=== PATIENT | female | born 1965 | race Caucasian/White ===

== ENCOUNTER 2024-06-24 05:07 | Inpatient (IN) | payer OTHER, SELFPAY ==
[2024-06-24] VITALS (29 sets, daily range): BP systolic 90–161; BP diastolic 52–100; PULSE 107–147; RESP 14–30; TEMP 36.6–37.4; O2SAT 87–100; BMI 31.1
--- NOTE | ~2024-06-24 | XR_ITS ---
Portable chest x-ray Comparison: 06/27/2024 Clinical History: Pneumonia Findings: Lungs are clear, without focal consolidation or pleural effusion. COPD pattern. Cardiomed iastinal silhouette is stable. Bones and soft tissues are unremarkable. Impression: Clear lungs. COPD pattern. Reviewed, dictated and finalized at [facility]. ED PERSON Impression: Clear lungs. COPD pattern.
--- NOTE | ~2024-06-24 | XR_ITS ---
Portable chest x-ray Comparison: 06/24/2024 Clinical History: Pneumonia, COPD Findings: Probable COPD pattern of the lungs. No consolidation or pleural effusion evident. Cardiom ediastinal silhouette is stable. Bones and soft tissues are unremarkable. Impression: COPD. Clear lungs. Reviewed, dictated and finalized at location . FACER Impression: COPD. Clear lungs.
--- NOTE | ~2024-06-24 | CT_ITS ---
EXAMINATION: CT abdomen pelvis wo/w con DATE: 06/28/2024 10:11 INDICATION: Left-sided renal mass TECHNIQUE: Computed tomography (CT) of the abdomen and pelvis was performed with 100 mL Omnipaque-350 intravenous contrast. Automated exposure control and iterative reconstruction technique were employe d. The dose-length product was 1551.08 mGy-cm. COMPARISON: None FINDINGS: Emphysema at the bilateral lung bases. Heart size is normal. No pericardial or pleural effusion. Foca l hepatic steatosis at the ligamentum teres. Scattered small hepatic and splenic calcification consis tent with old granulomatous disease. Gallbladder and pancreas are normal. 1.3 cm nodules in both the left and right adrenal glands. 8 mm low-attenuation cyst at the upper pole the right kidney. 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 6.9 x 6.8 cm heterogeneously e nhancing mass with internal dystrophic calcifications arising from the lower pole of the left kidney consistent with renal cell carcinoma. Bowels including appendix are normal. Arambula catheter within the decompressed bladder. There are couple uterine fibroids the larger measuring 4.4 cm at the right [place] e of the uterine body with a 9 mm pedunculated fibroid arising from the left side of the fundus. Bila teral adnexa are unremarkable. Small amount of likely physiologic free fluid in the pelvis. No pathol ogically enlarged abdominal or pelvic lymphadenopathy. Mild lumbar spondylosis. IMPRESSION: 1. 6.9 cm left renal mass consistent with renal cell carcinoma. 2. A pair of 1.3 cm left and right adrenal nodules which could represent adrenal adenomas or metastat ic disease. Could consider further evaluation with MRI as clinically indicated. 3. Fibroid uterus. Reviewed, dictated and finalized at location A. OND FINISHING SUPERVISOR IMPRESSION: 1. 6.9 cm left renal mass consistent with renal cell carcinoma. 2. A pair of 1.3 cm left and right adrenal nodules which could represent adrena l adenomas or metastatic disease. Could consider further evaluation with MRI as clinically indicated. 3. Fibroid uterus.
--- NOTE | ~2024-06-24 | CT_ITS ---
EXAMINATION: CT brain wo con DATE: 06/24/2024 12:00 INDICATION: Altered mental status. TECHNIQUE: Computed tomography (CT) of the head was performed without intravenous contrast. The mA wa s adjusted according to patient size. Iterative reconstruction technique was employed. The dose-lengt h product was 605.33 mGy-cm. COMPARISON: None FINDINGS: There is no intracranial hemorrhage, acute infarction, or abnormal intracranial mass lesion . The ventricles are normal in size. There is mucosal thickening in the paranasal sinuses. The orbits are normal. The mastoid air cells are normal. IMPRESSION: 1. Normal brain. Reviewed, dictated and finalized at location A. L MARKETER IMPRESSION: 1. Normal brain.
--- NOTE | ~2024-06-24 | CT_ITS ---
EXAMINATION: CTA chest PE protocol DATE: 06/24/2024 07:39 INDICATION: Hypoxia. TECHNIQUE: Computed tomography angiography (CTA) of the chest was performed with 100 mL Omnipaque-350 intravenous contrast timed to evaluate the pulmonary arteries. Coronal maximum intensity projection 3D-reconstructions were created by the technologist. Automated exposure control and iterative reconst ruction technique were employed. The dose-length product was 723.65 mGy-cm. COMPARISON: Chest CT 01/22/17 FINDINGS: There is severe emphysema. There are centrilobular nodules in left lower lobe and right upp er lobe. No pleural effusion. The heart size is normal. No pericardial effusion. There is no pulmonar y embolus. Calcifications in the liver and spleen are consistent with old granulomatous disease. Part ially visualized is a 5.9 cm mass in left kidney. There are masses in the adrenal glands measuring up to 13 mm on the left without change, likely adenomas. There is mild thoracic and lumbar spondylosis. IMPRESSION: 1. 5.9 cm mass in left kidney suspicious for renal cell carcinoma. Abdomen CT without and with contra st is recommended. 2. No pulmonary embolus. Sensitivity is moderately decreased by motion artifact. 3. Mild pneumonia in right upper lobe and left lower lobe. 4. Severe emphysema. Reviewed, dictated and finalized at location A. ST LAW AND POLICY PROFESSOR IMPRESSION: 1. 5.9 cm mass in left kidney suspicious for renal cell carcinoma. Abdomen CT w ithout and with contrast is recommended. 2. No pulmonary embolus. Sensitivity is moderately decreased by motion artifact . 3. Mild pneumonia in right upper lobe and left lower lobe. 4. Severe emphysema.
--- NOTE | ~2024-06-24 | XR_ITS ---
EXAMINATION: XR chest 1V portable DATE: 06/24/2024 06:20 INDICATION: Shortness of breath. TECHNIQUE: A single frontal view of the chest was obtained on 2 radiographs. COMPARISON: Chest single view 01/22/2017, chest CT 01/22/2017 FINDINGS: The lungs are hyperexpanded with lucencies and interstitial opacities, consistent with emph ysema. No pleural effusion or pneumothorax. The heart size is normal. IMPRESSION: 1. Emphysema. Reviewed, dictated and finalized at location A. ND CRUSHER IMPRESSION: 1. Emphysema.
--- NOTE | 2024-06-24 05:14 | ECG_ITS ---
Test Date: 2024-06-24 05:10:47 Measurements Intervals [place] Rate: 142 P: 77 [place]: 139 QRS: 76 QRSD: 95 T: 66 QT: 292 QTc: 449 Interpretive Statements SINUS TACHYCARDIA, POSSIBLE ATRIAL FLUTTER INCOMPLETE RIGHT BUNDLE BRANCH BLOCK [90+ ms QRS DURATION, TERMINAL R IN V1/V2, 40+ ms S IN I/aVL/V4/V5/V6] ABNORMAL RHYTHM ECG No previous ECG available for comparison Electronically Signed On 06-24-2024 14:57:47 FINE HAIRER by Roby Aguilar M.D.
[2024-06-24 05:27] LABS: Hematocrit 40.9 % (37.0-47.0); Hemoglobin 13.3 g/dL (12.0-15.0); Mean Corpuscular HGB Conc 32.5 g/dl (32-36); Mean Corpuscular Hemoglobin 30.3 pg (26-34); Mean Corpuscular Volume 93.2 fl (80-100); Mean Platelet Volume 9.7 fl (7.4-10.4); Platelet Count Result 335 k/mm3 (150-375); Red Blood Count 4.39 M/mm3 (4.2-5.4); Red Cell Distribution Width 12.7 % (11.5-14.5); White Blood Count 11.6 K/mm3 (4.5-10.0)
[2024-06-24 05:38] LABS: Lactic Acid Reflex 1.8 mmol/L (0.7-2.0)
[2024-06-24 05:39] LABS: Alanine Aminotransferase 58 U/L (6-35); Albumin Level 4.5 g/dL (3.5-5.1); Alkaline Phosphatase 136 U/L (38-126); Anion Gap 9 mmol/L (4-12); Aspartate Amino Transferase 50 U/L (14-36); Bilirubin,Total 0.7 mg/dL (0.2-1.3); Blood Urea Nitrogen 18 mg/dL (7-17); Calcium 9.8 mg/dL (8.4-10.2); Carbon Dioxide 33 mmol/L (22-30); Chloride 97 mmol/L (98-107); Estimated CRCL calculation 50 ml/min; Estimated Glomerular Filt Rate 57; Glucose 176 mg/dL (65-110); Potassium 4.5 mmol/L (3.4-5.0); Sodium 139 mmol/L (137-145)
[2024-06-24] MEDS: methylPREDNISolone SOD SUCC 125 MG VIAL IV PUSH (05:47)
[2024-06-24] MEDS: MAGNESIUM SULF 2 GM/WATER 50ML 2 GM/50 ML BAG IVPB (05:47)
[2024-06-24 05:53] LABS: Band Neutrophils Percent 4 % (0-6); Lymphocytes Absolute Manual 0.92 K/mm3 (1.1-4.5); Monocytes Absolute Manual 0.69 K/mm3 (0.1-0.90); Monocytes Percent Manual 6 % (3-9); Neutrophils Absolute Manual 9.97 K/mm3 (1.7-7.2); Neutrophils Percent Manual 82 % (46-73); Total Cells Counted 100
[2024-06-24 05:54] LABS: Anisocytosis 1+; Atypical Lymphocytes Present; Platelet Estimate Increased (Adequate); Schistocytes None Seen
[2024-06-24] MEDS: SODIUM CHLORIDE 0.9% IV 2,500 ML 999 ML IV CONT (05:58)
[2024-06-24 06:09] LABS: Alveolar/Arterial O2 Gradient 33.3 mmHg; Base Excess ABG 1.2 mEq/l (+/-2.0); Fractional Inspired Oxygen 60 %; HCO3 ABG 30.6 mEq/l (22.0-26.0); Oxygen Content ABG 19.8 %vol (16.0-22.0); Oxygen Saturation ABG 99.6 % (95.0-100.0); Oxyhemoglobin 98.7 % THb (90.0-100.0); PO2 ABG 314.8 mmHg (80.0-100.0); PO2 FiO2 Ratio Arterial Blood 5.25 %; Total Hemoglobin 13.7 g/dL (12.0-18.0)
[2024-06-24 06:10] LABS: Device BIPAP; Expiratory Pressure 5 cmH2O; Inspiratory Pressure 15 cmH2O; Modified Allen's Test Pass; PCO2 ABG 72.5 mmHg (35.0-45.0); Site Drawn RIGHT RADIAL; pH ABG 7.243 (7.350-7.450)
--- NOTE | 2024-06-24 06:31 | ED.GENADULT ---
HPI - General Adult General Chief complaint: Shortness of Breath/Dyspnea Stated complaint: SOB Time Seen by Provider: 06/24/24 05:26 History of Present Illness HPI narrative: This is a 58-year-old female with a history of COPD presenting ED with chief complaint of shortness of breath. Patient says her breathing has been getting steadily worse for the last 2 weeks. She has been having fevers productive cough with foul-smelling sputum, increasing shortness of breath and chest pain. She denies nausea vomiting or diarrhea. She saw her primary care physician about 1 week ago who actually recommended admission although she did not want to be admitted. Patient called EMS today when her breathing got acutely worse. She was found to be 61% on room air. She was placed on CPAP and brought to the hospital for further management. Related Data Allergies Allergy/AdvReac Type Severity Reaction Status Date / Time NKDA Allergy Mild Uncoded 05/05/09 11:30 Exam Narrative: APPEARANCE: Acute respiratory distress Head: atraumatic. EYES: EOMI, NOSE: Atraumatic NECK: Trachea midline RESPIRATORY: tachypneic, wheezing in all gavin, decreased air entry CARDIOVASCULAR: tachycardic, no peripheral edema ABDOMINAL: soft nontender MUSCULOSKELETAl: No obvious deformities NEURO: Alert. Moving 4/4 extremities SKIN:: Warm, dry. Normal color PSYCHIATRIC: Normal affect Course Vital Signs Vital signs: Vital Signs Temperature 36.6 C 06/24/24 05:05 Pulse Rate 145 H 06/24/24 05:05 Respiratory Rate 24 H 06/24/24 05:05 Blood Pressure 109/86 06/24/24 05:05 Pulse Oximetry 100 06/24/24 05:05 Oxygen Delivery CPAP 06/24/24 05:05 Temperature 37.2 C 06/24/24 06:54 Pulse Rate 141 H 06/24/24 09:28 Respiratory Rate 23 H 06/24/24 09:28 Blood Pressure 147/100 H 06/24/24 09:28 Pulse Oximetry 99 06/24/24 09:28 Oxygen Delivery BiPAP 06/24/24 09:15 Medical Decision Making MDM Narrative Medical decision making narrative: -Course: 58-year-old female with COPD presenting with acute respiratory distress. Patient arrived on CPAP and was switched to BiPAP at 15 in 5. ABG showed acute hypercarbic respiratory failure. Patient placed on continued continuous DuoNebs. Started on antibiotics for increased sputum w/ purulence. patient given fluid bolus. Patient signed out to the oncoming physician pending CT PE and re-evaluation. -DDX includes but is not limited to:COPD , pneumonia, viral syndrome Independent EKG interpretation: Rhythm [sinus], Rate [142], [place] -[normal], [place] -[normal], QRS [narrow], QTC [normal], T waves -[negative for concerning inversions], ST Segments - [Negative for concerning elevations] Final interpretations: sinus tachycardia Vital Signs Vital Signs: Vital Signs Temperature 36.6 C 06/24/24 05:05 Pulse Rate 145 H 06/24/24 05:05 Respiratory Rate 24 H 06/24/24 05:05 Blood Pressure 109/86 06/24/24 05:05 Pulse Oximetry 100 06/24/24 05:05 Oxygen Delivery CPAP 06/24/24 05:05 Temperature 37.2 C 06/24/24 06:54 Pulse Rate 141 H 06/24/24 09:28 Respiratory Rate 23 H 06/24/24 09:28 Blood Pressure 147/100 H 06/24/24 09:28 Pulse Oximetry 99 06/24/24 09:28 Oxygen Delivery BiPAP 06/24/24 09:15 Lab Data 06/24/24 05:20 06/24/24 05:20 Labs: Lab Results 06/24/24 06/24/24 06/24/24 Range/Units 05:20 05:51 06:05 WBC 11.6 H (4.5-10.0) K/mm3 RBC 4.39 (4.2-5.4) M/mm3 Hgb 13.3 (12.0-15.0) g/dL Hct 40.9 (37.0-47.0) % MCV 93.2 (80-100) fl MCH 30.3 (26-34) pg MCHC 32.5 (32-36) g/dl RDW 12.7 (11.5-14.5) % Plt Count 335 (150-375) k/mm3 MPV 9.7 (7.4-10.4) fl Immature Gran % (Auto) Not Reportable Neut % (Auto) Not Reportable Lymph % (Auto) Not Reportable [place] % (Auto) Not Reportable Eos % (Auto) Not Reportable Baso % (Auto) Not Reportable Lymph # (Auto) Not Reportable [place] # (Auto) Not Reportable Eos # (Auto) Not Reportable Baso # (Auto) Not Reportable Abs Immat Gran (auto) Not Reportable Absolute Neuts (auto) Not Reportable Absolute Nucleated RBC Not Reportable Total Counted 100 Neutrophils % (Manual) 82 H (46-73) % Band Neutrophils % 4 (0-6) % Lymphocytes % (Manual) 8.0 L (18-44) % Monocytes % (Manual) 6 (3-9) % Nucleated RBC % Not Reportable Abs Neuts (Manual) 9.97 H (1.7-7.2) K/mm3 Abs Lymphs (Manual) 0.92 L (1.1-4.5) K/mm3 Abs Monocytes (Manual) 0.69 (0.1-0.90) K/mm3 Atypical Lymphocytes Present Platelet Estimate Increased (Adequate) Anisocytosis 1+ Schistocytes None seen Expiratory Pressure 5 cmH2O Inspiratory Pressure 15 cmH2O Sodium 139 (137-145) mmol/L Potassium 4.5 (3.4-5.0) mmol/L Chloride 97 L (98-107) mmol/L Carbon Dioxide 33 H (22-30) mmol/L Anion Gap 9 (4-12) mmol/L BUN 18 H (7-17) mg/dL Creatinine 1.00 (0.7-1.0) mg/dL Estim Creat Clear Calc 50 ml/min Estimated GFR 57 L (59 - ) Glucose 176 H (65-110) mg/dL Lactic Acid 1.8 (0.7-2.0) mmol/L Calcium 9.8 (8.4-10.2) mg/dL Total Bilirubin 0.7 (0.2-1.3) mg/dL AST 50 H (14-36) U/L ALT 58 H (6-35) U/L Alkaline Phosphatase 136 H (38-126) U/L Troponin I 0.035 H* (0.000-0.034) ng/mL Total Protein 8.0 (6.3-8.2) g/dL Albumin 4.5 (3.5-5.1) g/dL Influenza A (RT-PCR) Negative (Negative) Influenza B (RT-PCR) Negative (Negative) RSV (RT-PCR) Negative (Negative) SARS-CoV-2 RNA (RT-PCR) Negative (Negative) 06/24/24 Range/Units 09:19 WBC (4.5-10.0) K/mm3 RBC (4.2-5.4) M/mm3 Hgb (12.0-15.0) g/dL Hct (37.0-47.0) % MCV (80-100) fl MCH (26-34) pg MCHC (32-36) g/dl RDW (11.5-14.5) % Plt Count (150-375) k/mm3 MPV (7.4-10.4) fl Immature Gran % (Auto) Neut % (Auto) Lymph % (Auto) [place] % (Auto) Eos % (Auto) Baso % (Auto) Lymph # (Auto) [place] # (Auto) Eos # (Auto) Baso # (Auto) Abs Immat Gran (auto) Absolute Neuts (auto) Absolute Nucleated RBC Total Counted Neutrophils % (Manual) (46-73) % Band Neutrophils % (0-6) % Lymphocytes % (Manual) (18-44) % Monocytes % (Manual) (3-9) % Nucleated RBC % Abs Neuts (Manual) (1.7-7.2) K/mm3 Abs Lymphs (Manual) (1.1-4.5) K/mm3 Abs Monocytes (Manual) (0.1-0.90) K/mm3 Atypical Lymphocytes Platelet Estimate (Adequate) Anisocytosis Schistocytes Expiratory Pressure cmH2O Inspiratory Pressure cmH2O Sodium (137-145) mmol/L Potassium (3.4-5.0) mmol/L Chloride (98-107) mmol/L Carbon Dioxide (22-30) mmol/L Anion Gap (4-12) mmol/L BUN (7-17) mg/dL Creatinine (0.7-1.0) mg/dL Estim Creat Clear Calc ml/min Estimated GFR (59 - ) Glucose (65-110) mg/dL Lactic Acid (0.7-2.0) mmol/L Calcium (8.4-10.2) mg/dL Total Bilirubin (0.2-1.3) mg/dL AST (14-36) U/L ALT (6-35) U/L Alkaline Phosphatase (38-126) U/L Troponin I Pending (0.000-0.034) ng/mL Total Protein (6.3-8.2) g/dL Albumin (3.5-5.1) g/dL Influenza A (RT-PCR) (Negative) Influenza B (RT-PCR) (Negative) RSV (RT-PCR) (Negative) SARS-CoV-2 RNA (RT-PCR) (Negative) ABG Data ABG results: 06/24/24 06:05 Puncture Site Right radial ABG pH 7.243 L* ABG pCO2 72.5 H* ABG pO2 314.8 H ABG PO2/FiO2 Ratio 5.25 ABG HCO3 30.6 H ABG O2 Saturation 99.6 ABG O2 Content 19.8 ABG Base Excess 1.2 A-a Gradient 33.3 Oxyhemoglobin 98.7 Total Hemoglobin 13.7 O2 Delivery Device Bipap O2 Liters/Min Not Reportable FiO2 60 Discharge Plan Discharge Clinical Impression: Respiratory failure with hypoxia and hypercapnia, PNA (pneumonia), Left kidney mass, COPD (chronic obstructive pulmonary disease) Patient Disposition: Still a Patient Condition: Stable Follow-up/Referrals: [place], [Primary Care Provider] -
[2024-06-24 06:44] LABS: Influenza A QL RT-PCR Negative (Negative); Influenza B QL RT-PCR Negative (Negative); RSV RNA, RT-PCR Negative (Negative); SARS-CoV-2 RNA PCR Negative (Negative)
[2024-06-24] MEDS: DOXYCYCLINE 100 MG/NS 100 ML 100 MG/100 ML BAG IVPB ×2 (06:47→19:43)
--- NOTE | 2024-06-24 07:30 | PC.NURSE ---
Pt. taken to CT on a monitor by this RN and RT at bedside. Pt remains on BiPAP during scan.
--- NOTE | 2024-06-24 07:56 | PC.NURSE ---
02 consistently 87% with good pleth on BiPAP at 30% Fi02. RT called to bedside.
--- NOTE | 2024-06-24 08:04 | PC.NURSE ---
Per RT, Fi02 titrated up to 50%. Oxygen saturation now 96% with good pleth.
[2024-06-24] MEDS: LEVALBUTEROL NEB 1.25 MG/3 ML 6 MG INHALATION ×2 (09:08→10:36)
[2024-06-24] MEDS: IPRATROPIUM BR 0.02% INH SOLN 0.5 MG/2.5 ML VIAL 1 MG INHALATION (09:09)
--- NOTE | 2024-06-24 09:23 | ECG_ITS ---
Test Date: 2024-06-24 09:27:48 Measurements Intervals [place] Rate: 141 P: 83 [place]: 116 QRS: 69 QRSD: 93 T: 64 QT: 291 QTc: 446 Interpretive Statements SINUS TACHYCARDIA WITH SHORT [place] INTERVAL, POSSIBLE ATRIAL FLUTTER ABNORMAL RHYTHM ECG Compared to ECG 06/24/2024 05:10:47 no change compared to prior EKG Electronically Signed On 06-24-2024 15:01:15 PYTHON CONSULTANT by Roby Aguilar M.D.
[2024-06-24 09:34] LABS: Troponin I 0.035 ng/mL (0.000-0.034)
[2024-06-24 10:12] LABS: Troponin I 0.033 ng/mL (0.000-0.034)
[2024-06-24 10:24] LABS: Alveolar/Arterial O2 Gradient 148.3 mmHg; Base Excess ABG -6.4 mEq/l (+/-2.0); Fractional Inspired Oxygen 50 %; HCO3 ABG 26.9 mEq/l (22.0-26.0); Oxygen Content ABG 18.3 %vol (16.0-22.0); PO2 FiO2 Ratio Arterial Blood 1.84 %; Total Hemoglobin 13.8 g/dL (12.0-18.0)
--- NOTE | 2024-06-24 10:30 | PC.NURSE ---
Pt continues to be diaphoretic, SOB and tachycardic. BiPAP in place. LEONARD Recinos and MD Arias notified. MD Arias at bedside assessing pt. Additional continuous breathing treatment ordered. RT at bedside.
[2024-06-24 10:32] LABS: Device BIPAP; PCO2 ABG 103.3 mmHg (35.0-45.0); Site Drawn RIGHT RADIAL; pH ABG 7.034 (7.350-7.450)
[2024-06-24 10:33] LABS: Expiratory Pressure 5 cmH2O; Inspiratory Pressure 15 cmH2O
--- NOTE | 2024-06-24 11:06 | PC.NURSE ---
Machine Assistant at bedside speaking with family and assessing pt.
--- NOTE | 2024-06-24 11:20 | PC.NURSE ---
This RN and Heavenly RN attempted temp sensing osman, whih is a 16 [place]. Unable to penetrate urinary meatus. 16 [place] osman swapped out with 14 [place]. 14 [place] osman insertion successful.
--- NOTE | 2024-06-24 11:40 | P.CONIN_ITS ---
Assessment and Plan Assessment and plan (1) Respiratory failure with hypoxia and hypercapnia: Code(s): J96.91 - Respiratory failure, unspecified with hypoxia; J96.92 - Respiratory failure, unspecified with hypercapnia Status: Acute Assessment and Plan: Acute respiratory failure secondary to pneumonia with underlying COPD. CTA negative for PE On arrival patient was placed on BiPAP but repeat ABG was worse likely secondary to low tidal volumes and high FiO2 I have adjusted the BiPAP and increase the IPAP and decrease FiO2 to 21% I will order repeat ABG Patient may need intubation if ABG does not show signs of improvement or respiratory status does not improve Steroids, bronchodilators Treatment of pneumonia as below (2) Sepsis: Code(s): A41.9 - Sepsis, unspecified organism Status: Acute Assessment and Plan: Sepsis secondary to community-acquired pneumonia Management of respiratory failure as above Blood cultures, urine Legionella, urine pneumococcal, mycoplasma IgM Empiric vancomycin Rocephin and doxycycline IV fluid bolus followed by IV fluids Check lactic acid level Blood pressure adequate at this time (3) COPD exacerbation: Code(s): J44.1 - Chronic obstructive pulmonary disease with (acute) exacerbation Status: Acute Assessment and Plan: See above (4) PNA (pneumonia): Code(s): J18.9 - Pneumonia, unspecified organism Status: Acute Assessment and Plan: See above (5) Left kidney mass: Code(s): N28.89 - Other specified disorders of kidney and ureter Status: Acute Assessment and Plan: CT scan shows incidental 6 cm left kidney mass suspicious for renal cell carcinoma. Will order additional workup once patient is stabilized from respiratory standpoint (6) Encephalopathy: Code(s): G93.40 - Encephalopathy, unspecified Status: Acute Assessment and Plan: Likely secondary to CO2 narcosis Management of respiratory failure as above Check head CT, ammonia, TSH Avoid sedative (7) Elevated troponin: Code(s): R79.89 - Other specified abnormal findings of blood chemistry Status: Acute Assessment and Plan: No documented history of coronary disease. Patient had 1st troponin check which was mildly abnormal and repeat troponin was in normal range. Likely elevation secondary to respiratory failure and tachycardia EKG reviewed. Serial troponins ordered Monitor Plan DVT prophylaxis -Lovenox Stress ulcer prophylaxis -PPI Nutrition - npo Code Status - Full Code I spoke to patient's and updated him with patient's current status including respiratory failure, COPD, pneumonia, sepsis I also discussed with him management plan including BiPAP and possibility of her requiring intubation and invasive mechanical ventilation. I answered all his questions were Total Critical Care Time - 45 minutes Due to a high probability of clinically significant, life threatening deterioration, the patient required my highest level of preparedness to intervene emergently and I personally spent this critical care time directly and personally managing the patient. This critical care time included obtaining a history; examining the patient; pulse oximetry; ordering and review of studies; arranging urgent treatment with development of a management plan; evaluation of patient's response to treatment; frequent reassessment; and discussions with other providers. It was exclusive of separately billable procedures and treating other patients and teaching time. Please see Assessment and Plan section and the rest of the note for further information on patient assessment and treatment Boiler/Chiller Operator Consult Note Consult date: 06/24/24 Reason for consult: Acute respiratory failure, sepsis, pneumonia HPI: Terri Villafuerte is a 58 year old female with past medical history of COPD and smoking. Started feeling sick last week with flu-like symptoms. History was provided by patient's at bedside as the patient was unable to provide history due to drowsiness. He states the patient started having cough fever. Cough was productive. She had some difficulty breathing. She went and saw primary care physician who prescribed steroids and antibiotics. Patient was unable to get her prescription filled and was not taking any medication. Her symptoms continued to get worse with worsening of shortness of breath. He states the patient also had some pain with coughing and deep breathing. Hence they decided to come to the ER today. Review of system was not obtainable. On arrival to ER patient had slightly elevated WBC, and was in respiratory distress. She was placed on BiPAP. As she was hypoxic. ABG showed hypercarbia. Patient was given IV fluids later repeat ABG showed worsening respiratory acidosis and hypercarbia. I was asked to evaluate patient for admission to ICU. On my arrival patient was on BiPAP with low tidal volumes. She was still getting IV fluid bolus that was ordered in the morning. She had received antibiotics. CTA had been done which was negative for PE but showed pneumonia and emphysema.. I obtained history from patient's examined the patient and adjusted BiPAP and spoke to the nursing staff. Review of Systems Review of Systems: ROS unobtainable: Yes unobtainable due to medical condition and unobtainable due to mental status [facility] Past Medical History Medical History (Updated 06/24/24 @ 12:00 by Giancarlo Gutierrez MD) COPD (chronic obstructive pulmonary disease) Social History Social History (Updated 06/24/24 @ 11:40 by Giancarlo Gutierrez MD) Social History: Smoker in the past. Quit smoking 7 years ago. Meds Home Medications and Allergies Allergies Allergy/AdvReac Type Severity Reaction Status Date / Time NKDA Allergy Mild Uncoded 05/05/09 11:30 Vital Signs Vital Signs - 24 hr 06/24/24 05:05 06/24/24 05:15 06/24/24 05:17 Temperature 36.6 C Pulse Rate 145 H 147 H Respiratory Rate 24 H 14 Blood Pressure 109/86 116/94 H Pulse Oximetry 100 100 100 Oxygen Delivery CPAP CPAP 06/24/24 05:30 06/24/24 06:54 06/24/24 06:55 Temperature 37.2 C Pulse Rate 136 H 139 H 138 H Respiratory Rate 30 H 22 H Blood Pressure 149/85 H Pulse Oximetry 99 99 Oxygen Delivery BiPAP 06/24/24 07:57 06/24/24 08:04 06/24/24 09:09 Temperature Pulse Rate 144 H 142 H 136 H Respiratory Rate 28 H 28 H 27 H Blood Pressure 161/84 H Pulse Oximetry 87 L 96 Oxygen Delivery 06/24/24 09:15 06/24/24 09:28 06/24/24 10:36 Temperature Pulse Rate 136 H 141 H 137 H Respiratory Rate 28 H 23 H 26 H Blood Pressure 147/100 H Pulse Oximetry 97 99 Oxygen Delivery BiPAP 06/24/24 10:43 06/24/24 11:07 06/24/24 11:00 Temperature Pulse Rate 137 H 131 H 130 H Respiratory Rate 30 H 28 H 26 H Blood Pressure 150/94 H Pulse Oximetry 95 94 95 Oxygen Delivery BiPAP BiPAP Exam Narrative: General: Pt is drowsy but arousable on BiPAP Lungs/Chest: Trachea central Clear BS B/L, decreased air movement throughout lungs bilaterally Cardiac: Tachycardic. Normal S1 S2. No murmurs Circulation: Pedal pulses are intact and symmetrical. Abdomen: Normal bowel sounds. Obese. Soft. NT. ND. Extremities: No clubbing, cyanosis or edema. Warm : Arambula in place Neurologic: On stimulation she opens her eyes and nodes are head, she moves all 4 extremity but did not follow commands for me, she answered couple of questions by yes and no, PERRL Skin: No Rash Results Labs 06/24/24 05:20 06/24/24 05:20 Labs: Impressions Chest X-Ray 06/24/24 06:21 IMPRESSION: 1. Emphysema. Chest CTA 06/24/24 07:46 IMPRESSION: 1. 5.9 cm mass in left kidney suspicious for renal cell carcinoma. Abdomen CT without and with contrast is recommended. 2. No pulmonary embolus. Sensitivity is moderately decreased by motion artifact. 3. Mild pneumonia in right upper lobe and left lower lobe. 4. Severe emphysema. Short CBC 06/24/24 Range/Units 05:20 WBC 11.6 H (4.5-10.0) K/mm3 Hgb 13.3 (12.0-15.0) g/dL Hct 40.9 (37.0-47.0) % Plt Count 335 (150-375) k/mm3 BMP 06/24/24 05:20 Sodium 139 Potassium 4.5 Chloride 97 L Carbon Dioxide 33 H BUN 18 H Creatinine 1.00 Glucose 176 H Calcium 9.8 Cardiac Enzymes 06/24/24 06/24/24 Range/Units 05:20 09:19 Troponin I 0.035 H* 0.033 (0.000-0.034) ng/mL Liver Function 06/24/24 Range/Units 05:20 Total Bilirubin 0.7 (0.2-1.3) mg/dL AST 50 H (14-36) U/L ALT 58 H (6-35) U/L Alkaline Phosphatase 136 H (38-126) U/L Albumin 4.5 (3.5-5.1) g/dL ECG Interpretation: Sinus tachycardia
--- NOTE | 2024-06-24 11:45 | PC.NURSE ---
Pt. taken up to ICU on a monitor, BiPAP, RT and this RN at bedside. Head CT ordered. Pt brought to CT for scan on way up to ICU.
--- NOTE | 2024-06-24 12:00 | PC.NURSE ---
Pt. brought to ICU WR by biofuels production technician since pt. is going to CT en route to ICU. After this RN brought pt. to ICU., updated that pt. was getting settling by ICU staff and then they would come out to get him. verbalized appreciation for update.
--- NOTE | 2024-06-24 12:17 | ADMGEN ---
This patient, Terri Villafuerte, was admitted to Intensive Care Unit-7 at 1157. Patient/family oriented to hospital policies and general routines including ID bracelet, bed and alarms, visiting hours, pain management, procedures, bathroom and other care routines, personal items, smoking policy, room service/diet, and visiting hours. Information on how to activate the Rapid Response Team has been discussed. Patient/Family are encouraged to report perceived risks to care and to ask questions if they do not understand what they are told or what they should do.
[2024-06-24] MEDS: LACTATED RINGERS 1,000 ML 100 ML IV CONT ×2 (12:23→23:46)
[2024-06-24] MEDS: methylPREDNISolone SOD SUCC 125 MG VIAL 60 MG IV PUSH ×3 (12:23→23:45)
[2024-06-24 12:33] LABS: Ammonia 17 umol/L (9-30); Lactic Acid Reflex 1.6 mmol/L (0.7-2.0)
[2024-06-24 12:34] LABS: Alveolar/Arterial O2 Gradient 14.2 mmHg; Base Excess ABG -3.9 mEq/l (+/-2.0); Fractional Inspired Oxygen 21 %; HCO3 ABG 25.3 mEq/l (22.0-26.0); Oxygen Content ABG 15.9 %vol (16.0-22.0); Oxyhemoglobin 88.6 % THb (90.0-100.0); PCO2 ABG 66.4 mmHg (35.0-45.0); PO2 FiO2 Ratio Arterial Blood 2.67 %; Total Hemoglobin 12.8 g/dL (12.0-18.0); pH ABG 7.198 (7.350-7.450)
[2024-06-24 12:35] LABS: Device BIPAP; Expiratory Pressure 8 cmH2O; Inspiratory Pressure 20 cmH2O; Modified Allen's Test Pass; Oxygen Saturation ABG 81.4 % (95.0-100.0); Site Drawn RIGHT RADIAL
[2024-06-24 12:45] LABS: Troponin I 0.027 ng/mL (0.000-0.034)
[2024-06-24 12:47] LABS: Glucose Point of Care 154 mg/dl (65-105)
[2024-06-24] MEDS: VANCOMYCIN 2,000 MG/NS 500 ML 2,000 MG/500 ML BAG 250 MG IVPB (12:51)
[2024-06-24 13:04] LABS: Thyroid Stimulating Hormone Reflex 0.017 uIU/mL (0.465-4.68)
[2024-06-24 13:35] LABS: Free T4 Free Thyroxine Reflex 1.69 ng/dL (0.78-2.19)
--- NOTE | 2024-06-24 13:44 | P.HP_ITS ---
H&P: HPI History of Present Illness Date/Time: 06/24/24 13:44 Chief Complaint: Shortness of breath Narrative: 58yo female with COPD, asthma and HTN here for shortness of breath. Patient is on BiPAP and poorly responsive so thus unable to provide history. Majority of the history obtained from . She has a 25 pack-year smoking hx and quit 7 years ago. Since that time, she has been vaping nicotine daily ('all day long' per family). She has COPD, astham but not SHARDA. She does not wear O2 or NIV at home. She uses Albuterol neb 1x/week on average but uses the albuterol inhaler at least 3x/day. She also has Breztri listed. She has never been intubated for her COPD and her last hospitalization for COPD was in 2017. Patient has been having 'flu-like' symptoms for the past 1-2 weeks. She has a cough productive of green sputum. No hemoptysis. Also with myalgia and fatigue with cold sweats. No fever, chills, CP, palpitations, nausea, vomiting, diarrhea, dysuria or hematuria that she has told her . She saw her doctor on 06/22 and he wanted to admit her to the hospital at that time but she refused. No CXR but she was sent home with an abx for possible PNA (never filled since the Rx did not reach the pharmacy). Her condition worsened and she contacted EMS. By report, EMS found her hypoxic with SpO2 at 61% on room air. She was placed on CPAP and brought to the ED for evaluation. In the ED, whe was on CPAP at 100%, tachypneic with RR 24 and tachycardic with HR 145. WBC 11.6K with minor left shift otherwise CBC normal. GLucose 176, serum bicarb 33, AST 50 and ALT 58. Troponin 0.035 but repeat values normal. TSH low at 0.02 but normal FT4. Influenza, RSV and COVID PCR negative. CXR showing emphysema. CTA chest showing 5.9cm left renal mass, no PE, mild PNA RUL and LLL and severe emphysema. CT brain was normal. EKG showing sinus tachycardia ind incomplete Rt BBB. ABG 7.24/73/315 on BiPAP. She was treated with Solu-Medrol, Rocephin, Doxycycline, Mag, morphine and bronchodilators. Repeat ABG worsened but then improved on 3rd value after bipap adjustments. She was admitted to the ICU for further care. Review of Systems Review of Systems: ROS unobtainable: Yes unobtainable due to medical condition PMF Past Medical History Medical History (Updated 06/24/24 @ 15:35 by Matt Mcdaniels MD) Asthma Breast cancer COPD (chronic obstructive pulmonary disease) Surgical History Surgical History (Updated 06/24/24 @ 15:35 by Matt Mcdaniels MD) H/O: hysterectomy History of lumpectomy Family History Family History (Updated 06/24/24 @ 15:35 by Matt Mcdaniels MD) Father Hypertension Mother Hypertension Social History Social History (Updated 06/24/24 @ 15:37 by Matt Mcdaniels MD) Social History: 25 pack year smoking hx. Quit smoking 7 years ago. No alcohol use. No drug use. Code status - full Surrogate decision maker - Smoking packs per day: 1 Smoking cigarettes per day: 20.0 Years smoked: 25 Smoking pack-years: 25.00 Smoking status: Former smoker Tobacco type: cigarettes and e-cigarettes/vaping Second hand tobacco smoke exposure: Yes Additional smoking assessment comments: still uses vape/e-cigarette Meds Home Medications and Allergies Home Medications Medication Instructions Recorded Confirmed Type albuterol sulfate 90 mcg/actuation 1 inh inhalation Q4-6H PRN 06/24/24 06/24/24 History aerosol inhaler Shortness Of Breath Or Wheezing atorvastatin 20 mg tablet 20 mg PO DAILY 06/24/24 06/24/24 History budesonide 160 mcg-glycopyr 9 2 inh inhalation BID 06/24/24 06/24/24 History mcg-formot 4.8 mcg/actuation HFA inhaler (Breztri Aerosphere) cetirizine 10 mg tablet 10 mg PO DAILY 06/24/24 06/24/24 History lisinopril 20 mg tablet 20 mg PO DAILY 06/24/24 06/24/24 History Allergies Allergy/AdvReac Type Severity Reaction Status Date / Time NKDA Allergy Mild Uncoded 05/05/09 11:30 Vital Signs Vital Signs - 24 hr 06/24/24 05:05 06/24/24 05:15 06/24/24 05:17 Temperature 98 F Pulse Rate 145 H 147 H Respiratory Rate 24 H 14 Blood Pressure 109/86 116/94 H Pulse Oximetry 100 100 100 Oxygen Delivery CPAP CPAP 06/24/24 05:30 06/24/24 06:54 06/24/24 06:55 Temperature 99 F Pulse Rate 136 H 139 H 138 H Respiratory Rate 30 H 22 H Blood Pressure 149/85 H Pulse Oximetry 99 99 Oxygen Delivery BiPAP 06/24/24 07:57 06/24/24 08:04 06/24/24 09:09 Temperature Pulse Rate 144 H 142 H 136 H Respiratory Rate 28 H 28 H 27 H Blood Pressure 161/84 H Pulse Oximetry 87 L 96 Oxygen Delivery 06/24/24 09:15 06/24/24 09:28 06/24/24 10:36 Temperature Pulse Rate 136 H 141 H 137 H Respiratory Rate 28 H 23 H 26 H Blood Pressure 147/100 H Pulse Oximetry 97 99 Oxygen Delivery BiPAP 06/24/24 10:43 06/24/24 11:07 06/24/24 11:00 Temperature Pulse Rate 137 H 131 H 130 H Respiratory Rate 30 H 28 H 26 H Blood Pressure 150/94 H Pulse Oximetry 95 94 95 Oxygen Delivery BiPAP BiPAP 06/24/24 12:00 Temperature Pulse Rate 128 H Respiratory Rate 26 H Blood Pressure Pulse Oximetry 100 Oxygen Delivery BiPAP Exam Narrative: AF 99.0 150/94 128 26 100% bipap Gen - well appearing female in moderate acute respiratory distress with bipap in place and tachypnea. HEENT - normocephalic. Atraumatic. Pupils equal round and reactive. BiPAP secured Neck - neck was supple. No dominant adenopathy or masses. Chest - distant BS diffusely. Breast exam was deferred. CV - tachycardic, regular. S1-S2. No obvious murmurs Abd - abdomen was soft. possible tenderness in the upper abdomen but not reproducible. +BS - Arambula secured drain clear yellow urine Ext - no clubbing, cyanosis or edema. 2+ DP pulses bilaterally. Neuro - patient is somnolent but arouses easily. She does not regard examiner or . Does not follow commands. Psych - unable to assess Skin - cool and dry. H&P: Results Labs Labs: Short CBC 06/24/24 Range/Units 05:20 WBC 11.6 H (4.5-10.0) K/mm3 Hgb 13.3 (12.0-15.0) g/dL Hct 40.9 (37.0-47.0) % Plt Count 335 (150-375) k/mm3 BMP 06/24/24 05:20 Sodium 139 Potassium 4.5 Chloride 97 L Carbon Dioxide 33 H BUN 18 H Creatinine 1.00 Glucose 176 H Calcium 9.8 Cardiac Enzymes 06/24/24 06/24/24 06/24/24 Range/Units 05:20 09:19 12:11 Troponin I 0.035 H* 0.033 0.027 (0.000-0.034) ng/mL Liver Function 06/24/24 Range/Units 05:20 Total Bilirubin 0.7 (0.2-1.3) mg/dL AST 50 H (14-36) U/L ALT 58 H (6-35) U/L Alkaline Phosphatase 136 H (38-126) U/L Albumin 4.5 (3.5-5.1) g/dL Assessment and Plan Assessment and plan (1) Respiratory failure with hypoxia and hypercapnia: Code(s): J96.91 - Respiratory failure, unspecified with hypoxia; J96.92 - Respiratory failure, unspecified with hypercapnia Status: Acute Assessment and Plan: Patient with worsening respiratory symptoms over the past week prompting EMS call angelito found her hypoxic in the field. She presents with acute respiratory failure secondary to pneumonia and COPD exacerbation. CTA chest showing RUL and LLL airspace disease consistent with PNA but negative for PE. COVID, RSV and influenza PCR negative. ABG 7.24/73/315 on bipap -> 7.034/103/92 on bipap felt related to low tidal volumes and high FiO2. ABG better after bipap adjustments. Patient started on Vanco, Doxycycline and Rocephin after BCx collected. Continue Solu-Medrol and bronchodilators. Patient may need intubation if her condition does not improve (discussed with night team) Wean off bipap as toelrated. Discussed with at bedside. (2) Sepsis: Code(s): A41.9 - Sepsis, unspecified organism Status: Acute Assessment and Plan: Severe sepsis on admissi on with tachycardia, respiratory failure and mild leukocytosis due CAP. She received 30ml/kg LR and continued on IV fluids. Lactic normal BCx collected. MRSA nasal swab ordered. Urine Legionella, urine pneumococcal, mycoplasma IgM ordered Empiric abx started. Follow up on culture results. Check sputum. (3) COPD exacerbation: Code(s): J44.1 - Chronic obstructive pulmonary disease with (acute) exacerbation Status: Acute Assessment and Plan: Patient with COPD exacerbation with poor air exchange. Continue steroids and bronchodilators. Hold Breztri (4) PNA (pneumonia): Code(s): J18.9 - Pneumonia, unspecified organism Status: Acute Assessment and Plan: CTA showing mild RUL and LLL airspace disease concerning for PNA. Images reviewed and do not appear to be a significant infitrative process. Consider atelectasis or viral. Unlikely to be mets Treatment as above (5) Encephalopathy: Code(s): G93.40 - Encephalopathy, unspecified Status: Acute Assessment and Plan: Patient arouses easily but still obtunded. CT brain normal. Ammonia level 17. TSH low but normal FT4. Likely secondary to CO2 narcosis Avoid sedative Follow for now (6) Elevated troponin: Code(s): R79.89 - Other specified abnormal findings of blood chemistry Status: Acute Assessment and Plan: Troponin 0.035 on admission with subsequent values normal. No hx of CAD EKG showing sinus tachycardia and incomplete Rt BBB. Doubt AFlutter [place] related to above. Not clinically significant. (7) Left kidney mass: Code(s): N28.89 - Other specified disorders of kidney and ureter Status: Acute Assessment and Plan: CTA chest also saw a 5.9cm left renal mass suspicious for RCC. Images just caught the top of the mass. Will check UA and urine cytology given the size. She has a hx of smoking. Further workup when she is better. Plan DVT prophylaxis -Lovenox Code Status - Full Code Hospitalist [facility] Advance Care Plan I have confirmed that the patient's Advanced Care Plan is present, code status is documented, or surrogate decision maker is listed in patient medical record.: Yes Medication Reconciliation I have utilized all available resources to obtain, update and review the patients current medications (includes all prescriptions, OTC, herbals, cannabis, and nutritional supplements).: Yes
[2024-06-24 14:18] LABS: Total Triiodothyronine (T3) 0.98 NG/ML (0.97-1.69)
[2024-06-24] MEDS: IPRATROPIUM 0.5 MG/ALBUTEROL SULFATE 2.5 MG AMPUL.NEB 3 ML INHALATION ×2 (14:38→20:47)
[2024-06-24 17:08] LABS: MRSA (PCR) NOT DETECTED (NOT DETECTE)
[2024-06-24 17:15] LABS: Troponin I 0.019 ng/mL (0.000-0.034)
[2024-06-24 19:51] LABS: Glucose Point of Care 149 mg/dl (65-105)
[2024-06-25] VITALS (21 sets, daily range): BP systolic 108–143; BP diastolic 78–92; PULSE 97–122; RESP 18–27; TEMP 36.9–37.5; O2SAT 97–100; BMI 31.5
--- NOTE | 2024-06-25 | ECHO_ITS ---
Patient Info Name: Terri Villafuerte Age: 58 years : 1965 Gender: Female Ht: 61 in Wt: 166 lbs BSA: 1.83 m2 HR: 112 bpm BP: 134 / 83 mmHg Technical Quality: Poor Exam Date: 06/25/2024 9:11 AM Exam Location: Echo Lab Patient Status: Inpatient Admit Date: 06/24/2024 Staff Ordering Physician: Giancarlo Gutierrez MD Medical Equipment Sales: Tomás Raphael RDCS Attending Provider: Matt Mcdaniels MD Exam Type: CA echo dop color flow w con Study Info Indications - RESP FAILURE Complete two-dimensional, color flow and Doppler transthoracic echocardiogram is performed with contrast to opacify the left ventricle and to improve the deliniation of the left ventricle endocardial borders. Contrast/Agitated Saline Contrast/Ag. Saline: Definity Amount: 2.00 ml Existing IV Access: Yes Reason for Poor Study: poor echocardiographic windows Summary 1. The left ventricle is normal in size and systolic function. There is concentric left ventricular remodeling. The left ventricular ejection fraction is visually estimated to be 60-65%. 2. The right ventricle is not well visualized however the systolic function by tissue Doppler appears normal. 3. Technically difficult study with limited views. Left Ventricle The left ventricle is normal in size and systolic function. There is concentric left ventricular remodeling. The left ventricular ejection fraction is visually estimated to be 60-65%. Right Ventricle The right ventricle is not well visualized however the systolic function by tissue Doppler appears normal. Left Atria The left atrium is normal size. Right Atria The right atrium is normal size. Atrial Septum The atrial septum is not well visualized. Aortic Valve The aortic valve is not well visualized. The gradients across the valve suggests a normal functioning valve. Pulmonic Valve The pulmonic valve is not well visualized. There is no color Doppler evidence of pulmonic valve regurgitation. Mitral Valve The mitral valve is normal. There is no mitral regurgitation. Tricuspid Valve The tricuspid valve is not well visualized. There is trace tricuspid regurgitation. Pericardium/Pleural Pericardium is normal in appearance with no evidence for significant pericardial effusion. Inferior Vena Cava Dilated inferior vena cava with >50% collapse upon inspiration consistent with elevated right atrial pressure, 8 mmHg. Aorta The aortic root at the level of the sinus of Valsalva measures 3.0 cm in diameter. Left Ventricular Outflow Tract Name Value Normal LVOT 2D LVOT Diameter 1.66 cm LVOT Doppler LVOT Peak Gradient 3 mmHg LVOT Mean Gradient 2 mmHg LVOT VTI 16.08 cm LVOT VTI/AV VTI Ratio 0.68 LVOT Stroke Volume 34.91 ml LVOT CO 4.24 l/min LVOT CI 2.42 L/min/m2 Pulmonic Valve Name Value Normal RVOT Doppler RVOT Peak Gradient 4 mmHg PV Doppler PV Peak Gradient 5 mmHg Mitral Valve Name Value Normal MV Doppler MV Decel [place] 1,778.49 cm/s2 MV PHT 0 s MV Area (PHT) 9.41 cm2 4.00-5.00 MV Diastolic Function MV E Peak Velocity 143.36 cm/s MV A Peak Velocity 1.21 cm/s MV E/A 118.26 MV Decel Time 0 s MV Annular TDI MV E/e' (Septal) 8.38 <=8.00 MV E/e' (Lateral) 21.73 <=8.00 MV E/e' (Average) 15.06 Tricuspid Valve Name Value Normal Estimated PAP/RSVP RA Pressure 8 mmHg <=5 Aorta Name Value Normal Ascending Aorta Ao Root Diameter (MM) 3.68 cm Ao Root Diam Index (MM) 2.01 cm/m2 Aortic Valve Name Value Normal AV Doppler AV Peak Velocity 156.67 cm/s AV Peak Gradient 6 mmHg AV Mean Gradient 3 mmHg AV VTI 23.75 cm AV Area (Cont Eq VTI) 1.47 cm2 >=3.00 AV Area (Cont Eq [place]) 1.19 cm2 AV Regurgitation 2D LVOT Area 2.17 cm2 Ventricles Name Value Normal LV Dimensions 2D/MM IVS Diastolic Thickness (2D) 1.24 cm 0.60-1.00 LVID Diastole (2D) 3.17 cm 3.80-5.20 LVIW Diastolic Thickness (2D) 1.15 cm 0.60-0.90 LVID Systole (2D) 2.24 cm 2.20-3.50 LVOT Diameter 1.66 cm LV Mass (2D Cubed) 117.72 g 67.00-162.00 LV Mass Index (2D Cubed) 0.01 g/cm2 0.00-0.01 Relative Wall Thickness (2D) 0.73 LV Fractional Shortening/Ejection Fraction 2D/MM LV Fractional Shortening (2D) 29 % 27-45 LV EF (2D Teicholz) 58 % 54-74 Atria Name Value Normal LA Dimensions LA Dimension (MM) 2.63 cm 2.70-3.80 LA Volume (4C A-L) 27.26 ml LA Volume (BP A-L) 22.01 ml RA Dimensions RA Area (4C) 7.87 cm2 <=18.00 Report Signatures
[2024-06-25 00:02] LABS: Glucose Point of Care 154 mg/dl (65-105)
[2024-06-25] MEDS: IPRATROPIUM 0.5 MG/ALBUTEROL SULFATE 2.5 MG AMPUL.NEB 3 ML INHALATION ×3 (02:15→13:05)
[2024-06-25 04:01] LABS: Hematocrit 33.6 % (37.0-47.0); Hemoglobin 10.3 g/dL (12.0-15.0); Mean Corpuscular HGB Conc 30.7 g/dl (32-36); Mean Platelet Volume 9.8 fl (7.4-10.4); Platelet Count Result 252 k/mm3 (150-375); Red Blood Count 3.43 M/mm3 (4.2-5.4); White Blood Count 8.4 K/mm3 (4.5-10.0)
[2024-06-25 04:28] LABS: Alanine Aminotransferase 47 U/L (6-35); Albumin Level 3.4 g/dL (3.5-5.1); Alkaline Phosphatase 112 U/L (38-126); Anion Gap 5 mmol/L (4-12); Aspartate Amino Transferase 33 U/L (14-36); Bilirubin,Total 0.4 mg/dL (0.2-1.3); Blood Urea Nitrogen 14 mg/dL (7-17); Calcium 8.8 mg/dL (8.4-10.2); Carbon Dioxide 28 mmol/L (22-30); Chloride 105 mmol/L (98-107); Estimated CRCL calculation 79 ml/min; Estimated Glomerular Filt Rate > 60; Glucose 160 mg/dL (65-110); Magnesium 2.7 mg/dL (1.6-2.3); Potassium 4.4 mmol/L (3.4-5.0); Sodium 138 mmol/L (137-145)
[2024-06-25 04:42] LABS: Anisocytosis 1+; Band Neutrophils Percent 6 % (0-6); Giant Platelets Present; Lymphocytes Absolute Manual 0.67 K/mm3 (1.1-4.5); Metamyelocytes Percent 2 %; Monocytes Absolute Manual 0.67 K/mm3 (0.1-0.90); Monocytes Percent Manual 8 % (3-9); Neutrophils Absolute Manual 6.88 K/mm3 (1.7-7.2); Neutrophils Percent Manual 76 % (46-73); Platelet Clumps Present; Platelet Estimate Adequate (Adequate); Total Cells Counted 100
[2024-06-25 04:43] LABS: Schistocytes None Seen; Smudge Cells PRESENT
[2024-06-25 05:26] LABS: Alveolar/Arterial O2 Gradient 84.8 mmHg; Base Excess ABG 0.7 mEq/l (+/-2.0); Carboxyhemoglobin 0.3 % THb (0-2.0); Fractional Inspired Oxygen 35 %; Methemoglobin ABG 0.2 %THb (0-1.5); Oxygen Content ABG 15.3 %vol (16.0-22.0); Oxygen Saturation ABG 96.6 % (95.0-100.0); Oxyhemoglobin 97.1 % THb (90.0-100.0); PCO2 ABG 58.3 mmHg (35.0-45.0); PO2 FiO2 Ratio Arterial Blood 2.77 %; Reduced Hemoglobin 2.4 %THb (0-5.0); Total Hemoglobin 11.1 g/dL (12.0-18.0); pH ABG 7.299 (7.350-7.450)
[2024-06-25 05:37] LABS: Device BIPAP; Modified Allen's Test Pass; Site Drawn RIGHT RADIAL
[2024-06-25 05:38] LABS: Expiratory Pressure 8 cmH2O; Inspiratory Pressure 20 cmH2O
[2024-06-25] MEDS: methylPREDNISolone SOD SUCC 125 MG VIAL 60 MG IV PUSH ×3 (05:58→17:27)
[2024-06-25 06:32] LABS: Glucose Point of Care 150 mg/dl (65-105)
[2024-06-25] MEDS: DOXYCYCLINE 100 MG/NS 100 ML 100 MG/100 ML BAG IVPB ×2 (07:48→20:28)
[2024-06-25] MEDS: ENOXAPARIN 40 MG/0.4 ML SYRINGE SUB-Q (08:50)
[2024-06-25] MEDS: PANTOPRAZOLE SODIUM IV 40 MG VIAL IV PUSH (08:50)
--- NOTE | 2024-06-25 09:00 | P.PNINT_ITS ---
Progress Note: A&P Assessment and Plan (1) Respiratory failure with hypoxia and hypercapnia: Code(s): J96.91 - Respiratory failure, unspecified with hypoxia; J96.92 - Respiratory failure, unspecified with hypercapnia Status: Acute Assessment and Plan: Acute respiratory failure secondary to pneumonia with underlying COPD. CTA negative for PE On arrival patient was placed on BiPAP but repeat ABG was worse likely secondary to low tidal volumes and high FiO2 I have adjusted the BiPAP and increase the IPAP and decrease FiO2 to 21% I will order repeat ABG 06/25 clinically improved although she still has decreased air entry bilaterally Will try and sedation to nasal cannula this morning. Keep NPO for now. BiPAP p.r.n. and at night Continue Steroids, bronchodilators Treatment of pneumonia as below (2) Sepsis: Code(s): A41.9 - Sepsis, unspecified organism Status: Acute Assessment and Plan: Sepsis secondary to community-acquired pneumonia Management of respiratory failure as above Blood cultures, urine Legionella, urine pneumococcal, mycoplasma IgM all pending Empiric vancomycin Rocephin and doxycycline IV fluid bolus followed by IV fluids Will decrease IV fluids now Normal lactic acid level Blood pressure adequate at this time Check echo (3) COPD exacerbation: Code(s): J44.1 - Chronic obstructive pulmonary disease with (acute) exacerbation Status: Acute Assessment and Plan: See above (4) PNA (pneumonia): Code(s): J18.9 - Pneumonia, unspecified organism Status: Acute Assessment and Plan: See above (5) Left kidney mass: Code(s): N28.89 - Other specified disorders of kidney and ureter Status: Acute Assessment and Plan: CT scan shows incidental 6 cm left kidney mass suspicious for renal cell carcinoma. Will order additional workup once patient is stabilized from respiratory standpoint (6) Encephalopathy: Code(s): G93.40 - Encephalopathy, unspecified Status: Acute Assessment and Plan: Likely secondary to CO2 narcosis Management of respiratory failure as above Negative head CT Normal ammonia and TSH Improved (7) Elevated troponin: Code(s): R79.89 - Other specified abnormal findings of blood chemistry Status: Acute Assessment and Plan: No documented history of coronary disease. Patient had 1st troponin check which was mildly abnormal and repeat troponin was in normal range. Likely elevation secondary to respiratory failure and tachycardia EKG reviewed. Serial troponins negative Echo ordered and pending Monitor Plan DVT prophylaxis -Lovenox Stress ulcer prophylaxis -PPI Nutrition - npo Code Status - Full Code I spoke to patient's and updated him with patient's current status including respiratory failure, COPD, pneumonia, sepsis I also discussed with him management plan including BiPAP and possibility of her requiring intubation and invasive mechanical ventilation. I answered all his questions were Total Critical Care Time - 35 minutes Due to a high probability of clinically significant, life threatening deterioration, the patient required my highest level of preparedness to intervene emergently and I personally spent this critical care time directly and personally managing the patient. This critical care time included obtaining a history; examining the patient; pulse oximetry; ordering and review of studies; arranging urgent treatment with development of a management plan; evaluation of patient's response to treatment; frequent reassessment; and discussions with other providers. It was exclusive of separately billable procedures and treating other patients and teaching time. Please see Assessment and Plan section and the rest of the note for further information on patient assessment and treatment Subjective Date/time seen: 06/25/24 Overnight events reviewed. Afebrile Continues to be on bipap but overall has clinically improved. Her heart rate is and on the BiPAP her respiratory rate was in low 20s. She is alert awake following commands. Denies any new complaints. Limited review of system was obtained due to patient being on BiPAP and she denies any pain shortness of breath. She does have some cough which is dry Not any continues infusion Other Vitals acceptable Septal urine output Review of Systems Review of Systems: ROS unobtainable: Yes unobtainable due to medical condition and unobtainable due to mental status Exam Narrative: General: Pt is drowsy but arousable on BiPAP Lungs/Chest: Trachea central Clear BS B/L, decreased air movement throughout lungs bilaterally Cardiac: Tachycardic. Normal S1 S2. No murmurs Circulation: Pedal pulses are intact and symmetrical. Abdomen: Normal bowel sounds. Obese. Soft. NT. ND. Extremities: No clubbing, cyanosis or edema. Warm : Arambula in place Neurologic: Alert awake, follows commands all 4 extremities. Alert oriented x3 PERRL Skin: No Rash Objective Data Vital Signs Vital Signs: Vital Signs - 24 hr 06/24/24 09:09 06/24/24 09:15 06/24/24 09:28 Temperature Pulse Rate 136 H 136 H 141 H Respiratory Rate 27 H 28 H 23 H Blood Pressure 147/100 H Pulse Oximetry 97 99 Oxygen Delivery BiPAP Fraction of Inspired Oxygen 06/24/24 10:36 06/24/24 10:43 06/24/24 11:07 Temperature Pulse Rate 137 H 137 H 131 H Respiratory Rate 26 H 30 H 28 H Blood Pressure 150/94 H Pulse Oximetry 95 94 Oxygen Delivery BiPAP Fraction of Inspired Oxygen 06/24/24 11:00 06/24/24 12:00 06/24/24 14:02 Temperature Pulse Rate 130 H 128 H 114 H Respiratory Rate 26 H 26 H 22 H Blood Pressure 90/65 L Pulse Oximetry 95 100 100 Oxygen Delivery BiPAP BiPAP Fraction of Inspired Oxygen 06/24/24 14:02 06/24/24 14:02 06/24/24 15:11 Temperature Pulse Rate 128 H 128 H 109 H Respiratory Rate 26 H Blood Pressure Pulse Oximetry 100 Oxygen Delivery BiPAP Fraction of Inspired Oxygen 06/24/24 14:29 06/24/24 14:39 06/24/24 14:49 Temperature Pulse Rate 115 H 110 H 109 H Respiratory Rate 21 H 22 H 21 H Blood Pressure Pulse Oximetry 100 Oxygen Delivery BiPAP Fraction of Inspired Oxygen 06/24/24 17:28 06/24/24 18:00 06/24/24 19:10 Temperature Pulse Rate 111 H 107 H 113 H Respiratory Rate 20 19 23 H Blood Pressure 124/80 Pulse Oximetry 100 100 100 Oxygen Delivery BiPAP BiPAP Fraction of Inspired Oxygen 06/24/24 20:47 06/24/24 20:00 06/24/24 22:50 Temperature Pulse Rate 110 H 118 H Respiratory Rate 23 H 23 H Blood Pressure Pulse Oximetry 100 100 Oxygen Delivery BiPAP BiPAP Fraction of Inspired Oxygen 40 06/24/24 20:00 06/24/24 20:00 06/24/24 22:00 Temperature 37.4 C Pulse Rate 116 H 115 H 115 H Respiratory Rate 18 Blood Pressure 107/52 L Pulse Oximetry 100 Oxygen Delivery Fraction of Inspired Oxygen 06/24/24 22:00 06/25/24 00:00 06/25/24 00:00 Temperature Pulse Rate 115 H 107 H Respiratory Rate 25 H Blood Pressure 151/75 H Pulse Oximetry 100 100 Oxygen Delivery BiPAP Fraction of Inspired Oxygen 35 06/25/24 00:00 06/25/24 02:15 06/25/24 02:15 Temperature 37.5 C Pulse Rate 107 H 97 97 Respiratory Rate 23 H 27 H 27 H Blood Pressure 108/91 H Pulse Oximetry 100 100 Oxygen Delivery BiPAP Fraction of Inspired Oxygen 06/25/24 02:22 06/24/24 20:53 06/25/24 02:00 Temperature Pulse Rate 111 H 115 H 107 H Respiratory Rate 27 H 23 H Blood Pressure Pulse Oximetry Oxygen Delivery Fraction of Inspired Oxygen 06/25/24 02:00 06/25/24 04:00 06/25/24 04:00 Temperature 37.1 C Pulse Rate 107 H 110 H 110 H Respiratory Rate 23 H 23 H Blood Pressure 113/80 126/81 Pulse Oximetry 99 98 Oxygen Delivery Fraction of Inspired Oxygen 06/25/24 04:00 06/25/24 06:00 06/25/24 06:00 Temperature Pulse Rate 109 H 109 H Respiratory Rate 23 H Blood Pressure 134/83 Pulse Oximetry 98 99 Oxygen Delivery BiPAP Fraction of Inspired Oxygen 35 06/25/24 07:15 06/25/24 07:15 06/25/24 07:25 Temperature Pulse Rate 108 H 108 H 112 H Respiratory Rate 21 H 21 H 21 H Blood Pressure Pulse Oximetry 100 Oxygen Delivery BiPAP Fraction of Inspired Oxygen Intake/Output Intake/Output: Intake & Output 06/22/24 06/23/24 06/24/24 06/25/24 23:59 23:59 23:59 23:59 Intake Total 3800.0 100 Output Total 600 450 Balance 3200.0 -350 Meds/Results Medications: Active Medications Generic Name Dose Route Start Last Admin Trade Name Freq PRN Reason Stop Dose Admin Acetaminophen 650 mg 06/24/24 10:52 Acetaminophen 325 Mg Tablet PO Q4H PRN Mild Pain (1-3) or Fever Albuterol/Ipratropium 3 ml 06/24/24 14:00 06/25/24 07:15 Ipratropium 0.5 Mg/Albuterol Sulfate 2.5 Mg Ampul.Neb 3 Ml INHALATION 3 ml Q6HRT MAX Administration Dextrose 12.5 gm 06/24/24 12:14 Dextrose 50% 25 Gm/50 Ml Syringe IV PUSH PRN PRN Hypoglycemia Protocol Enoxaparin Sodium 40 mg 06/25/24 09:00 06/25/24 08:50 Enoxaparin 40 Mg/0.4 Ml Syringe SUB-Q 40 mg DAILY MAX Administration Glucagon 1 mg 06/24/24 12:14 Glucagon For Inj 1 Mg Vial IM PRN PRN Hypoglycemia Protocol Glucose 15 gm 06/24/24 12:14 Glucose Oral Gel 15 Gm Of Glucse In 37.5 Gm Tube PO PRN PRN Hypoglycemia Protocol Ceftriaxone Sodium 1 gm in 50 mls @ 100 mls/hr 06/25/24 06:00 06/25/24 05:57 Rocephin 1 Gm/Ns 50 Ml IVPB 100 mls/hr Q24H MAX Administration Doxycycline Hyclate 100 mg in 100 mls @ 100 mls/hr 06/24/24 19:00 06/25/24 08:53 Vibramycin 100 Mg/Ns 100 Ml IVPB Infused Q12H MAX Infusion Lactated Ringer's 1,000 mls @ 50 mls/hr 06/24/24 10:55 06/24/24 23:46 Lr - Lactated Ringers Iv IV CONT 100 mls/hr .Q20H MAX Administration Dextrose 1,000 mls @ 100 mls/hr 06/24/24 12:14 Dextrose 5% 1,000 Ml IVPB PRN PRN Hypoglycemia Protocol Vancomycin HCl 1,500 mg in 500 mls @ 250 mls/hr 06/25/24 09:00 Vancomycin 1,500 Mg/Ns 500 Ml IVPB Q18H MAX Insulin Aspart 2 - 5 units 06/24/24 18:00 06/25/24 05:58 Insulin Aspart (*Bkc) 100 Units/Ml SUB-Q Not Given Q6HR MAX Protocol Methylprednisolone Sodium Succinate 60 mg 06/24/24 12:00 06/25/24 05:58 Methylprednisolone Sod Succ 125 Mg Vial IV PUSH 60 mg Q6HR MAX Administration Ondansetron HCl 4 mg 06/24/24 10:52 Ondansetron Inj 4 Mg/2 Ml Vial IV PUSH Q4H PRN Nausea Pantoprazole Sodium 40 mg 06/25/24 09:00 06/25/24 08:50 Pantoprazole Sodium Iv 40 Mg Vial IV PUSH 40 mg QAM MAX Administration Perflutren Lipid Microsphere 0 ml 06/25/24 08:00 Perflutren Lipid Microspheres 1.5 Ml Vial Diluted To 10 Ml Total Volume IV PUSH 06/28/24 08:01 ONCE PRN adequate visualization Protocol Radiology Results: ITS Impressions Chest X-Ray 06/24/24 06:21 IMPRESSION: 1. Emphysema. Chest CTA 06/24/24 07:46 IMPRESSION: 1. 5.9 cm mass in left kidney suspicious for renal cell carcinoma. Abdomen CT without and with contrast is recommended. 2. No pulmonary embolus. Sensitivity is moderately decreased by motion artifact. 3. Mild pneumonia in right upper lobe and left lower lobe. 4. Severe emphysema. Head CT 06/24/24 12:02 IMPRESSION: 1. Normal brain. Labs Labs: Laboratory Results - last 24 hr 06/24/24 06/24/24 06/24/24 05:20 09:19 10:14 WBC RBC Hgb Hct MCV MCH MCHC RDW Plt Count MPV Immature Gran % (Auto) Neut % (Auto) Lymph % (Auto) Mcdonald % (Auto) Eos % (Auto) Baso % (Auto) Lymph # (Auto) Mcdonald # (Auto) Eos # (Auto) Baso # (Auto) Abs Immat Gran (auto) Absolute Neuts (auto) Absolute Nucleated RBC Total Counted Neutrophils % (Manual) Band Neutrophils % Lymphocytes % (Manual) Monocytes % (Manual) Metamyelocytes % Nucleated RBC % Abs Neuts (Manual) Abs Lymphs (Manual) Abs Monocytes (Manual) Smudge Cells Platelet Estimate Clumped Platelets Giant Platelets Anisocytosis Schistocytes Puncture Site Right radial ABG pH 7.034 L* ABG pCO2 103.3 H* ABG pO2 92.0 ABG PO2/FiO2 Ratio 1.84 ABG HCO3 26.9 H ABG O2 Saturation 92.0 L ABG O2 Content 18.3 ABG Base Excess -6.4 A-a Gradient 148.3 Oxyhemoglobin 94.0 Carboxyhemoglobin Methemoglobin Reduced Hemoglobin Total Hemoglobin 13.8 O2 Delivery Device Bipap O2 Liters/Min Not Reportable FiO2 50 Expiratory Pressure 5 Inspiratory Pressure 15 Sodium Potassium Chloride Carbon Dioxide Anion Gap BUN Creatinine Estim Creat Clear Calc Estimated GFR Glucose POC Capillary Glucose Lactic Acid Calcium Magnesium Total Bilirubin AST ALT Alkaline Phosphatase Ammonia Troponin I 0.035 H* 0.033 Total Protein Albumin TSH (Reflex) Free T4 Total T3 Nasal MRSA (PCR) 06/24/24 06/24/24 06/24/24 12:11 12:30 12:44 WBC RBC Hgb Hct MCV MCH MCHC RDW Plt Count MPV Immature Gran % (Auto) Neut % (Auto) Lymph % (Auto) Mcdonald % (Auto) Eos % (Auto) Baso % (Auto) Lymph # (Auto) Mcdonald # (Auto) Eos # (Auto) Baso # (Auto) Abs Immat Gran (auto) Absolute Neuts (auto) Absolute Nucleated RBC Total Counted Neutrophils % (Manual) Band Neutrophils % Lymphocytes % (Manual) Monocytes % (Manual) Metamyelocytes % Nucleated RBC % Abs Neuts (Manual) Abs Lymphs (Manual) Abs Monocytes (Manual) Smudge Cells Platelet Estimate Clumped Platelets Giant Platelets Anisocytosis Schistocytes Puncture Site Right radial ABG pH 7.198 L* ABG pCO2 66.4 H* ABG pO2 56.0 L ABG PO2/FiO2 Ratio 2.67 ABG HCO3 25.3 ABG O2 Saturation 81.4 L* ABG O2 Content 15.9 L ABG Base Excess -3.9 A-a Gradient 14.2 Oxyhemoglobin 88.6 L Carboxyhemoglobin Methemoglobin Reduced Hemoglobin Total Hemoglobin 12.8 O2 Delivery Device Bipap O2 Liters/Min Not Reportable FiO2 21 Expiratory Pressure 8 Inspiratory Pressure 20 Sodium Potassium Chloride Carbon Dioxide Anion Gap BUN Creatinine Estim Creat Clear Calc Estimated GFR Glucose POC Capillary Glucose 154 H Lactic Acid 1.6 Calcium Magnesium Total Bilirubin AST ALT Alkaline Phosphatase Ammonia 17 Troponin I 0.027 Total Protein Albumin TSH (Reflex) 0.017 L Free T4 1.69 Total T3 0.98 Nasal MRSA (PCR) 06/24/24 06/24/24 06/24/24 15:51 16:48 19:42 WBC RBC Hgb Hct MCV MCH MCHC RDW Plt Count MPV Immature Gran % (Auto) Neut % (Auto) Lymph % (Auto) Mcdonald % (Auto) Eos % (Auto) Baso % (Auto) Lymph # (Auto) Mcdonald # (Auto) Eos # (Auto) Baso # (Auto) Abs Immat Gran (auto) Absolute Neuts (auto) Absolute Nucleated RBC Total Counted Neutrophils % (Manual) Band Neutrophils % Lymphocytes % (Manual) Monocytes % (Manual) Metamyelocytes % Nucleated RBC % Abs Neuts (Manual) Abs Lymphs (Manual) Abs Monocytes (Manual) Smudge Cells Platelet Estimate Clumped Platelets Giant Platelets Anisocytosis Schistocytes Puncture Site ABG pH ABG pCO2 ABG pO2 ABG PO2/FiO2 Ratio ABG HCO3 ABG O2 Saturation ABG O2 Content ABG Base Excess A-a Gradient Oxyhemoglobin Carboxyhemoglobin Methemoglobin Reduced Hemoglobin Total Hemoglobin O2 Delivery Device O2 Liters/Min FiO2 Expiratory Pressure Inspiratory Pressure Sodium Potassium Chloride Carbon Dioxide Anion Gap BUN Creatinine Estim Creat Clear Calc Estimated GFR Glucose POC Capillary Glucose 149 H Lactic Acid Calcium Magnesium Total Bilirubin AST ALT Alkaline Phosphatase Ammonia Troponin I 0.019 D Total Protein Albumin TSH (Reflex) Free T4 Total T3 Nasal MRSA (PCR) Not detected 06/24/24 06/25/24 06/25/24 23:43 03:44 05:17 WBC 8.4 RBC 3.43 L Hgb 10.3 L D Hct 33.6 L MCV 98.0 D MCH 30.0 MCHC 30.7 L RDW 13.0 Plt Count 252 MPV 9.8 Immature Gran % (Auto) Not Reportable Neut % (Auto) Not Reportable Lymph % (Auto) Not Reportable Mcdonald % (Auto) Not Reportable Eos % (Auto) Not Reportable Baso % (Auto) Not Reportable Lymph # (Auto) Not Reportable Mcdonald # (Auto) Not Reportable Eos # (Auto) Not Reportable Baso # (Auto) Not Reportable Abs Immat Gran (auto) Not Reportable Absolute Neuts (auto) Not Reportable Absolute Nucleated RBC Not Reportable Total Counted 100 Neutrophils % (Manual) 76 H Band Neutrophils % 6 Lymphocytes % (Manual) 8.0 L Monocytes % (Manual) 8 Metamyelocytes % 2 Nucleated RBC % Not Reportable Abs Neuts (Manual) 6.88 Abs Lymphs (Manual) 0.67 L Abs Monocytes (Manual) 0.67 Smudge Cells Present Platelet Estimate Adequate Clumped Platelets Present Giant Platelets Present Anisocytosis 1+ Schistocytes None seen Puncture Site Right radial ABG pH 7.299 L ABG pCO2 58.3 H ABG pO2 97.0 ABG PO2/FiO2 Ratio 2.77 ABG HCO3 28.0 H ABG O2 Saturation 96.6 ABG O2 Content 15.3 L ABG Base Excess 0.7 A-a Gradient 84.8 Oxyhemoglobin 97.1 Carboxyhemoglobin 0.3 Methemoglobin 0.2 Reduced Hemoglobin 2.4 Total Hemoglobin 11.1 L O2 Delivery Device Bipap O2 Liters/Min Not Reportable FiO2 35 Expiratory Pressure 8 Inspiratory Pressure 20 Sodium 138 Potassium 4.4 Chloride 105 Carbon Dioxide 28 Anion Gap 5 BUN 14 Creatinine 0.60 L Estim Creat Clear Calc 79 Estimated GFR > 60 Glucose 160 H POC Capillary Glucose 154 H Lactic Acid Calcium 8.8 Magnesium 2.7 H Total Bilirubin 0.4 AST 33 ALT 47 H Alkaline Phosphatase 112 Ammonia Troponin I Total Protein 6.0 L Albumin 3.4 L TSH (Reflex) Free T4 Total T3 Nasal MRSA (PCR) 06/25/24 05:57 WBC RBC Hgb Hct MCV MCH MCHC RDW Plt Count MPV Immature Gran % (Auto) Neut % (Auto) Lymph % (Auto) Mcdonald % (Auto) Eos % (Auto) Baso % (Auto) Lymph # (Auto) Mcdonald # (Auto) Eos # (Auto) Baso # (Auto) Abs Immat Gran (auto) Absolute Neuts (auto) Absolute Nucleated RBC Total Counted Neutrophils % (Manual) Band Neutrophils % Lymphocytes % (Manual) Monocytes % (Manual) Metamyelocytes % Nucleated RBC % Abs Neuts (Manual) Abs Lymphs (Manual) Abs Monocytes (Manual) Smudge Cells Platelet Estimate Clumped Platelets Giant Platelets Anisocytosis Schistocytes Puncture Site ABG pH ABG pCO2 ABG pO2 ABG PO2/FiO2 Ratio ABG HCO3 ABG O2 Saturation ABG O2 Content ABG Base Excess A-a Gradient Oxyhemoglobin Carboxyhemoglobin Methemoglobin Reduced Hemoglobin Total Hemoglobin O2 Delivery Device O2 Liters/Min FiO2 Expiratory Pressure Inspiratory Pressure Sodium Potassium Chloride Carbon Dioxide Anion Gap BUN Creatinine Estim Creat Clear Calc Estimated GFR Glucose POC Capillary Glucose 150 H Lactic Acid Calcium Magnesium Total Bilirubin AST ALT Alkaline Phosphatase Ammonia Troponin I Total Protein Albumin TSH (Reflex) Free T4 Total T3 Nasal MRSA (PCR)
[2024-06-25] MEDS: PERFLUTREN LIPID MICROSPHERES 1.5 ML VIAL DILUTED TO 10 ML TOTAL VOLUME IV PUSH (09:45)
[2024-06-25] MEDS: VANCOMYCIN 1,500 MG/NS 500 ML 1,500 MG/500 ML BAG 250 MG IVPB (10:03)
[2024-06-25 11:55] LABS: Glucose Point of Care 154 mg/dl (65-105)
[2024-06-25] MEDS: LACTATED RINGERS 1,000 ML 50 ML IV CONT (11:59)
--- NOTE | 2024-06-25 12:38 | IVDEFINITY ---
Prior to administration of IV Definity the patient was educated on the risks and benefits of the imaging enhancing agent including potential adverse side effects. The patient verbalized understanding. Allergies were verified. No exclusion criteria were identified and at least one of the following inclusion criteria were met: 1) physician request, 2) patient technically difficult to image (per the [place] [employer] guidelines of two or more segments not discernable within the apical view), or 3) questionable left ventricular function. ?
[2024-06-25 17:32] LABS: Glucose Point of Care 160 mg/dl (65-105)
[2024-06-25] MEDS: LEVALBUTEROL NEB 1.25 MG/3 ML 0.63 MG INHALATION (20:40)
[2024-06-26] VITALS (24 sets, daily range): BP systolic 100–156; BP diastolic 67–97; PULSE 84–125; RESP 20–29; TEMP 36.9–37.6; O2SAT 91–100
[2024-06-26] MEDS: methylPREDNISolone SOD SUCC 125 MG VIAL 60 MG IV PUSH ×2 (00:16→06:20)
[2024-06-26 00:22] LABS: Glucose Point of Care 158 mg/dl (65-105)
[2024-06-26 02:04] LABS: Hematocrit 32.8 % (37.0-47.0); Hemoglobin 10.2 g/dL (12.0-15.0); Mean Corpuscular HGB Conc 31.1 g/dl (32-36); Mean Corpuscular Hemoglobin 29.9 pg (26-34); Mean Corpuscular Volume 96.2 fl (80-100); Mean Platelet Volume 9.7 fl (7.4-10.4); Platelet Count Result 290 k/mm3 (150-375); Red Blood Count 3.41 M/mm3 (4.2-5.4); Red Cell Distribution Width 13.1 % (11.5-14.5); White Blood Count 13.6 K/mm3 (4.5-10.0)
[2024-06-26] MEDS: LEVALBUTEROL NEB 1.25 MG/3 ML 0.63 MG INHALATION ×3 (02:07→20:19)
[2024-06-26 02:16] LABS: Alanine Aminotransferase 45 U/L (6-35); Albumin Level 3.3 g/dL (3.5-5.1); Alkaline Phosphatase 106 U/L (38-126); Anion Gap 3 mmol/L (4-12); Aspartate Amino Transferase 25 U/L (14-36); Bilirubin,Total 0.3 mg/dL (0.2-1.3); Blood Urea Nitrogen 24 mg/dL (7-17); Calcium 9.4 mg/dL (8.4-10.2); Carbon Dioxide 32 mmol/L (22-30); Chloride 106 mmol/L (98-107); Estimated CRCL calculation 61 ml/min; Estimated Glomerular Filt Rate > 60; Glucose 170 mg/dL (65-110); Magnesium 2.8 mg/dL (1.6-2.3); Potassium 4.6 mmol/L (3.4-5.0); Sodium 141 mmol/L (137-145)
[2024-06-26 02:17] LABS: Band Neutrophils Percent 4 % (0-6); Lymphocytes Absolute Manual 1.76 K/mm3 (1.1-4.5); Neutrophils Absolute Manual 11.83 K/mm3 (1.7-7.2); Neutrophils Percent Manual 83 % (46-73); Platelet Estimate Adequate (Adequate); Schistocytes None Seen; Total Cells Counted 100
[2024-06-26 02:27] LABS: Vancomycin Trough 7.4 ug/mL (10.0-20.0)
[2024-06-26] MEDS: VANCOMYCIN 2,000 MG/NS 500 ML 2,000 MG/500 ML BAG 250 MG IVPB (04:15)
--- NOTE | 2024-06-26 04:15 | PC.NURSE ---
Vancomycin 2000mg IVPB started in right AC IV.
[2024-06-26 06:32] LABS: Glucose Point of Care 159 mg/dl (65-105)
[2024-06-26 07:35] LABS: Alveolar/Arterial O2 Gradient 48.3 mmHg; Base Excess ABG 3.3 mEq/l (+/-2.0); Carboxyhemoglobin 0.3 % THb (0-2.0); Fractional Inspired Oxygen 30 %; HCO3 ABG 30.1 mEq/l (22.0-26.0); Oxygen Content ABG 15.5 %vol (16.0-22.0); Oxygen Saturation ABG 97.1 % (95.0-100.0); Oxyhemoglobin 97.4 % THb (90.0-100.0); PCO2 ABG 56.6 mmHg (35.0-45.0); PO2 ABG 99.1 mmHg (80.0-100.0); Reduced Hemoglobin 2.3 %THb (0-5.0); Total Hemoglobin 11.2 g/dL (12.0-18.0); pH ABG 7.343 (7.350-7.450)
[2024-06-26] MEDS: DOXYCYCLINE 100 MG/NS 100 ML 100 MG/100 ML BAG IVPB ×2 (07:59→18:12)
[2024-06-26 08:08] LABS: Device NON-INVASIVE VENT; Non-Invasive Inspiratory Pressure 20 CMH2O; Non-Invasive Vent Rate 16 /MIN
[2024-06-26 08:09] LABS: Non-Invasive Expiratory Pressure 8 CMH2O
[2024-06-26] MEDS: ENOXAPARIN 40 MG/0.4 ML SYRINGE SUB-Q (09:41)
[2024-06-26] MEDS: PANTOPRAZOLE SODIUM IV 40 MG VIAL IV PUSH (09:41)
[2024-06-26] MEDS: cefTRIAXone 2 GM/NS 100 ML 2 GM/100 ML BAG IVPB (09:41)
--- NOTE | 2024-06-26 11:45 | PCNFU ---
Nutrition Follow-Up Complete: Inadequate oral intake related to continuous bipap as evidenced by NPO Goal: Meet estimated protein energy needs Patient is progressing towards goal. We will continue current goal. Pt current nutrition is Clear liquids. Last recorded weight is 79.1 kg, up from 75.7 kg on admit. Bowel Motility: No reported BM at this time. Labs Reviewed: Mg 2.8, BUN 24, Alb 3.3, Hct 32.8, Hgb 10.2 Meds Noted:Rocephin, Vancomycin. Skin: WNL Additional Notes: Patient diet order has advanced to clear liquids today. Patient has been off and on bipap. When diet order advanced recommend diet supplements of Ensure Compact BID for additional 220 kcals and 9 gm protein. Monitoring diet orders, intakes, weights, labs, medications, plan of care Follow up in 3 days
[2024-06-26] MEDS: methylPREDNISolone SOD SUCC 125 MG VIAL IV PUSH (12:28)
[2024-06-26] MEDS: ALBUTEROL SULFATE NEB 2.5 MG/3 ML INH 15 MG INHALATION (12:33)
[2024-06-26 12:34] LABS: Glucose Point of Care 172 mg/dl (65-105)
--- NOTE | 2024-06-26 13:11 | P.CONPL_ITS ---
Assessment and Plan Assessment and plan (1) COPD exacerbation: Code(s): J44.1 - Chronic obstructive pulmonary disease with (acute) exacerbation Status: Acute Assessment and Plan: Patient has a history of COPD Thirty pack year tobacco use, quit in 2017, vaping E cigarettes since then,with PFTs from 06/28/2016 with severe obstruction, positive bronchodilator response, moderately decreased DLCO. CT scan of the chest dating back to 01/22/2017 with moderate emphysema. the patient presents on 06/24/2024 with acute on chronic hypercarbic respiratory failure with blood gas on BiPAP of 7.24/73/314. Her serum bicarb on admission was 33. Plan: Agree with treating patient for COPD exacerbation. I will decrease her IV Solu-Medrol from 60 mg q.6 hours to 20 mg q.6 hours. She is tachycardic and will continue levalbuterol 0.63 mg nebs q.6 hours. I will add ipratropium 0.5 mg nebs q.6 hours. I will repeat COVID, RSV, influenza swab. I will send a respiratory pathogen panel to assess for 21 different respiratory viruses. I will send a mycoplasma IgM. At this time would continue ceftriaxone and doxycycline both day 3. Will follow with you. (2) Respiratory failure with hypoxia and hypercapnia: Code(s): J96.91 - Respiratory failure, unspecified with hypoxia; J96.92 - Respiratory failure, unspecified with hypercapnia Status: Acute Assessment and Plan: The patient presents on 06/24/2024 with acute on chronic hypercarbic respiratory failure with blood gas on BiPAP of 7.24/73/314. Her serum bicarb on admission was 33. The patient has chronic hypercarbic respiratory failure from COPD. She would benefit from noninvasive ventilation to prevent further deterioration and subsequent hospitalizations. Patient cannot tolerate BiPAP due to the high pressures. I will initiate noninvasive ventilation with the AVAPS mode. 06/26/2024: Currently the patient is on BiPAP rate of 16 pressures 20/8 50% FiO2 with saturations 100%. The patient states that she is breathing better than when she arrived. The patient states that she cannot tolerate the BiPAP pressures. Her white blood cell count is 13.6, creatinine is 0.8. Blood gas is 7.34/57/99 on these settings. I changed the patient to the AVAPS mode and adjust the settings to comfort resulting in a rate of 14, tidal volume 500, EPAP 5, minimal inspiratory pressure 6, maximal inspiratory pressure 25, inspiratory time 1.0, rise of 3 and 32% FiO2. Plan: I will obtain ABG in the morning prior to removal of the noninvasive ventilation with the AVAPS. History of Present Illness History of Present Illness Consult date: 06/26/24 Chief complaint: Acute Respiratory Failure/Pnemonia/Renal Mass Narrative: 06/26/2024: This is a new pulmonary consult for COPD with hypercarbic respiratory failure. 58-year-old with a history of severe COPD, asthma, hypertension and current vaping. Patient is currently on BiPAP in the ICU. Family is in the room and patient had 2 weeks shortness of breath, fever, cough and presented to the emergency room on 06/24/2024 with room air sats by EMS 61%. she had bilateral wheezing, white blood cell count 11.6, eosinophils 0%. Creatinine 1.0, MRSA swab negative, COVID, influenza, RSV swab negative, CT angiogram of the chest with no PE, very minimal infiltrate in the right upper lobe and left lower lobe and bilateral severe apical predominant panlobular emphysema. She was placed on CPAP And then placed on BiPAP. Blood gas on BiPAP 15/5 with pH of 7.24/73/314. Patient was given IV fluids, nebulizers, Solu-Medrol, ceftriaxone and doxycycline and admitted to the ICU. 06/26/2024: Currently the patient is on BiPAP rate of 16 pressures 20/8 50% FiO2 with saturations 100%. The patient states that she is breathing better than when she arrived. The patient states that she cannot tolerate the BiPAP pressures. Her white blood cell count is 13.6, creatinine is 0.8. Blood gas is 7.34/57/99 on these settings. I changed the patient to the AVAPS mode and adjust the settings to comfort resulting in a rate of 14, tidal volume 500, EPAP 5, minimal inspiratory pressure 6, maximal inspiratory pressure 25, inspiratory time 1.0, rise of 3 and 32% FiO2. DATA: 06/25/24: Echo Summary 1. The left ventricle is normal in size and systolic function. There is concentric left ventricular remodeling. The left ventricular ejection fraction is visually estimated to be 60-65%. 2. The right ventricle is not well visualized however the systolic function by tissue Doppler appears normal. 3. Technically difficult study with limited views. Right Ventricle The right ventricle is not well visualized however the systolic function by tissue Doppler appears normal. Left Atria The left atrium is normal size. Right Atria The right atrium is normal size. 06/24/24: EXAMINATION: CTA chest PE protocol DATE: 06/24/2024 07:39 INDICATION: Hypoxia. TECHNIQUE: Computed tomography angiography (CTA) of the chest was performed with 100 mL Omnipaque-350 intravenous contrast timed to evaluate the pulmonary arteries. Coronal maximum intensity projection 3D-reconstructions were created by the technologist. Automated exposure control and iterative reconstruction technique were employed. The dose-length product was 723.65 mGy-cm. COMPARISON: Chest CT 01/22/17 FINDINGS: There is severe emphysema. There are centrilobular nodules in left lower lobe and right upper lobe. No pleural effusion. The heart size is normal. No pericardial effusion. There is no pulmonary embolus. Calcifications in the liver and spleen are consistent with old granulomatous disease. Partially visualized is a 5.9 cm mass in left kidney. There are masses in the adrenal glands measuring up to 13 mm on the left without change, likely adenomas. There is mild thoracic and lumbar spondylosis. IMPRESSION: 1. 5.9 cm mass in left kidney suspicious for renal cell carcinoma. Abdomen CT without and with contrast is recommended. 2. No pulmonary embolus. Sensitivity is moderately decreased by motion artifact. 3. Mild pneumonia in right upper lobe and left lower lobe. 4. Severe emphysema. 01/22/2017: EXAMINATION: CTA CHEST (PULMONARY ART) INDICATION: Shortness of breath. TECHNIQUE: Computed tomography angiography (CTA) of the chest was performed with 100 mL Omnipaque-350 intravenous contrast timed to evaluate the pulmonary arteries. Coronal maximum intensity projection 3D-reconstructions were created by the technologist. Automated exposure control and iterative reconstruction technique were employed. The dose-length product was 273 mGy-cm. COMPARISON: Chest single view 01/22/17 FINDINGS: There is moderate emphysema. There is mild scarring at the lung apices. There is mild atelectasis in lingula. A calcified left lung nodule and calcified left hilar lymph nodes are consistent with old granulomatous disease. No pleural effusion. The heart size is normal. No pericardial effusion. There is no pulmonary embolus. There is mild bilateral hilar and mediastinal lymphadenopathy. For example, a right hilar node measures 20 x 17 mm. There is a 2.2 cm mass in right adrenal gland measuring low attenuation, consistent with an adenoma. There is mild thoracic spondylosis. IMPRESSION: 1. No pulmonary embolus. 2. Moderate emphysema. 3. Mild bilateral hilar and mediastinal lymphadenopathy, likely reactive. 06/28/2016: PFT report FVC NORMAL, FEV1, FEV1% DECREASED. THERE IS ACUTE BRONCHODILATOR RESPONSE. LUNG VOLUMES ARE ALL INCREASED CONSISTENT WITH HYPERINFLATION AND AIR TRAPPING. RAW IS INCREASED. DLCO IS MODERATELY DECREASED WITH PARTIAL CORRECTION FOR VA. IMPRESSION: SEVERE OBSTRUCTIVE VENTILATORY DEFECT WITH ACUTE BRONCHODILATOR RESPONSE. MODERATELY DECREASED DLCO. ABG (RA) 7.41/ 43/ 72/ 27/ 87%/ CoHb 8.2 REVEALS MILD HYPOXEMIA WITH SIGNIFICANTLY DECREASED O2 CONTENT SECONDARY TO INCREASED CoHb. Review of Systems 2 Constitutional: Constitutional: Reports no additional constitutional complaints Eyes: Eyes: Reports no additional eye complaints ENT: Reports system reviewed and no additional complaints, except as documented Cardiovascular: Cardiovascular: Reports no additional cardiovascular complaints Respiratory: Respiratory: Reports no additional respiratory complaints Gastrointestinal: Gastrointestinal: Reports no additional gastrointestinal complaints Musculoskeletal: Musculoskeletal: Reports no additional musculoskeletal complaints Neurologic: Reports system reviewed and no additional complaints, except as documented Psychiatric: Psychiatric: Reports no additional psychiatric complaints Endocrine: Endocrine: Reports no additional endocrine complaints Hematologic/Lymphatic: Hematologic/Lymphatic: Reports no additional hematologic/lymphatic complaints Allergic/Immunologic: Allergic/Immunologic: Reports no additional allergic/immunologic complaints [facility] Past Medical History Medical History (Updated 06/24/24 @ 15:35 by Matt Mcdaniels MD) Breast cancer Asthma COPD (chronic obstructive pulmonary disease) Surgical History Surgical History (Updated 06/24/24 @ 15:35 by Matt Mcdaniels MD) H/O: hysterectomy History of lumpectomy Family History Family History (Updated 06/24/24 @ 15:35 by Matt Mcdaniels MD) Father Hypertension Mother Hypertension Social History Social History (Updated 06/24/24 @ 15:37 by Matt Mcdaniels MD) Social History: 25 pack year smoking hx. Quit smoking 7 years ago. No alcohol use. No drug use. Code status - full Surrogate decision maker - Smoking packs per day: 1 Smoking cigarettes per day: 20.0 Years smoked: 25 Smoking pack-years: 25.00 Smoking status: Former smoker Tobacco type: cigarettes and e-cigarettes/vaping Second hand tobacco smoke exposure: Yes Additional smoking assessment comments: still uses vape/e-cigarette Alcohol intake: unknown Substance use: never Substance use type: does not use Spiritual care concerns: No Meds Home Medications and Allergies Home Medications ?Medication ?Instructions ?Recorded ?Confirmed ?Type albuterol sulfate 90 mcg/actuation 1 inh inhalation Q4-6H PRN 06/24/24 06/24/24 History aerosol inhaler Shortness Of Breath Or Wheezing atorvastatin 20 mg tablet 20 mg PO DAILY 06/24/24 06/24/24 History budesonide 160 mcg-glycopyr 9 2 inh inhalation BID 06/24/24 06/24/24 History mcg-formot 4.8 mcg/actuation HFA inhaler (Breztri Aerosphere) cetirizine 10 mg tablet 10 mg PO DAILY 06/24/24 06/24/24 History lisinopril 20 mg tablet 20 mg PO DAILY 06/24/24 06/24/24 History Allergies Allergy/AdvReac Type Severity Reaction Status Date / Time No Known Drug Allergies Allergy Verified 06/25/24 07:38 Vital Signs Vital Signs - 24 hr 06/25/24 13:15 06/25/24 14:00 06/25/24 14:00 Temperature Pulse Rate 122 H 113 H 113 H Respiratory Rate 22 H 22 H Blood Pressure 120/81 Pulse Oximetry 100 Oxygen Delivery Oxygen Flow Rate Fraction of Inspired Oxygen 06/25/24 16:00 06/25/24 16:00 06/25/24 16:00 Temperature 37.3 C Pulse Rate 120 H 117 H Respiratory Rate 24 H Blood Pressure 130/81 Pulse Oximetry 99 99 Oxygen Delivery BiPAP Oxygen Flow Rate Fraction of Inspired Oxygen 35 06/25/24 16:03 06/25/24 18:00 06/25/24 18:00 Temperature Pulse Rate 117 H 108 H 108 H Respiratory Rate 23 H 21 H Blood Pressure 131/78 Pulse Oximetry 100 99 Oxygen Delivery BiPAP Oxygen Flow Rate Fraction of Inspired Oxygen 06/25/24 20:00 06/25/24 20:00 06/25/24 20:00 Temperature 37.3 C Pulse Rate 109 H 109 H Respiratory Rate 22 H Blood Pressure 130/83 Pulse Oximetry 100 100 Oxygen Delivery BiPAP Oxygen Flow Rate Fraction of Inspired Oxygen 35 06/25/24 20:40 06/25/24 20:40 06/25/24 20:46 Temperature Pulse Rate 109 H 105 H 107 H Respiratory Rate 21 H 19 19 Blood Pressure Pulse Oximetry 100 Oxygen Delivery BiPAP Oxygen Flow Rate Fraction of Inspired Oxygen 06/25/24 22:00 06/25/24 22:00 06/26/24 00:00 Temperature Pulse Rate 110 H 110 H Respiratory Rate 22 H Blood Pressure 109/92 H Pulse Oximetry 99 98 Oxygen Delivery BiPAP Oxygen Flow Rate Fraction of Inspired Oxygen 35 06/26/24 00:00 06/26/24 00:00 06/26/24 01:50 Temperature 37.5 C Pulse Rate 115 H 115 H 102 H Respiratory Rate 29 H 26 H Blood Pressure 133/79 Pulse Oximetry 98 Oxygen Delivery Oxygen Flow Rate Fraction of Inspired Oxygen 06/26/24 01:50 06/26/24 02:00 06/26/24 02:00 Temperature Pulse Rate 102 H 111 H 111 H Respiratory Rate 26 H 27 H Blood Pressure 156/84 H Pulse Oximetry 100 97 Oxygen Delivery BiPAP Oxygen Flow Rate Fraction of Inspired Oxygen 06/26/24 04:00 06/26/24 04:00 06/26/24 04:00 Temperature 37.0 C Pulse Rate 95 95 Respiratory Rate 24 H Blood Pressure 117/68 Pulse Oximetry 98 98 Oxygen Delivery BiPAP Oxygen Flow Rate Fraction of Inspired Oxygen 35 06/26/24 06:00 06/26/24 06:00 06/26/24 07:54 Temperature Pulse Rate 85 85 85 Respiratory Rate 22 H 21 H Blood Pressure 109/67 Pulse Oximetry 100 Oxygen Delivery Oxygen Flow Rate Fraction of Inspired Oxygen 06/26/24 08:00 06/26/24 08:00 06/26/24 08:02 Temperature Pulse Rate 102 H 88 Respiratory Rate 23 H Blood Pressure Pulse Oximetry 99 Oxygen Delivery BiPAP Oxygen Flow Rate Fraction of Inspired Oxygen 35 06/26/24 08:03 06/26/24 11:28 06/26/24 12:35 Temperature Pulse Rate 102 H 92 Respiratory Rate 24 H 20 Blood Pressure Pulse Oximetry 100 99 Oxygen Delivery Nasal Cannula BiPAP Oxygen Flow Rate 2 Fraction of Inspired Oxygen 06/26/24 12:36 Temperature Pulse Rate 121 H Respiratory Rate 26 H Blood Pressure Pulse Oximetry 100 Oxygen Delivery BiPAP Oxygen Flow Rate Fraction of Inspired Oxygen Exam 2 Const: General: cooperative, healthy appearing and comfortable O rientation/consciousness: oriented to person, oriented to place and oriented to time HENMT: Head: normal to inspection Ears: hearing grossly normal bilaterally Eyes: General: appearance normal, both eyes and all related structures Neck: Neck: normal visual inspection Chest: Chest palpation & inspection: normal inspection of the chest Resp: Effort & Inspection: normal respiratory effort and able to speak in complete sentences Auscultation: no crackles, no rales, no rhonchi, no wheezes and diminished lung sounds Cardio: Jugular venous distension: no JVD GI: Inspection: normal to inspection GI Palp: No abdominal tenderness Skin: General skin exam: normal color Neuro: General: oriented to person, oriented to place and oriented to time Extrem: General: normal to inspection and no edema Psych: Appearance: grossly normal Results Laboratory Findings 06/26/24 01:59 06/26/24 01:59 ABG, PT/INR, D-dimer: ABG ABG pH 7.343 (7.350-7.450) L 06/26/24 05:44 ABG pCO2 56.6 mmHg (35.0-45.0) H 06/26/24 05:44 ABG pO2 99.1 mmHg (80.0-100.0) 06/26/24 05:44 ABG O2 Saturation 97.1 % (95.0-100.0) 06/26/24 05:44 Abnormal lab findings: Abnormal Labs 06/24/24 06/24/24 06/24/24 05:20 06:05 10:14 WBC 11.6 H RBC Hgb Hct MCHC Neutrophils % (Manual) 82 H Lymphocytes % (Manual) 8.0 L Abs Neuts (Manual) 9.97 H Abs Lymphs (Manual) 0.92 L ABG pH 7.243 L* 7.034 L* ABG pCO2 72.5 H* 103.3 H* ABG pO2 314.8 H ABG HCO3 30.6 H 26.9 H ABG O2 Saturation 92.0 L ABG O2 Content Oxyhemoglobin Total Hemoglobin Chloride 97 L Carbon Dioxide 33 H Anion Gap BUN 18 H Creatinine Estimated GFR 57 L Glucose 176 H POC Capillary Glucose Magnesium AST 50 H ALT 58 H Alkaline Phosphatase 136 H Troponin I 0.035 H* Total Protein Albumin TSH (Reflex) Vancomycin Trough 06/24/24 06/24/24 06/24/24 12:11 12:30 12:44 WBC RBC Hgb Hct MCHC Neutrophils % (Manual) Lymphocytes % (Manual) Abs Neuts (Manual) Abs Lymphs (Manual) ABG pH 7.198 L* ABG pCO2 66.4 H* ABG pO2 56.0 L ABG HCO3 ABG O2 Saturation 81.4 L* ABG O2 Content 15.9 L Oxyhemoglobin 88.6 L Total Hemoglobin Chloride Carbon Dioxide Anion Gap BUN Creatinine Estimated GFR Glucose POC Capillary Glucose 154 H Magnesium AST ALT Alkaline Phosphatase Troponin I Total Protein Albumin TSH (Reflex) 0.017 L Vancomycin Trough 06/24/24 06/24/24 06/25/24 19:42 23:43 03:44 WBC RBC 3.43 L Hgb 10.3 L D Hct 33.6 L MCHC 30.7 L Neutrophils % (Manual) 76 H Lymphocytes % (Manual) 8.0 L Abs Neuts (Manual) Abs Lymphs (Manual) 0.67 L ABG pH ABG pCO2 ABG pO2 ABG HCO3 ABG O2 Saturation ABG O2 Content Oxyhemoglobin Total Hemoglobin Chloride Carbon Dioxide Anion Gap BUN Creatinine 0.60 L Estimated GFR Glucose 160 H POC Capillary Glucose 149 H 154 H Magnesium 2.7 H AST ALT 47 H Alkaline Phosphatase Troponin I Total Protein 6.0 L Albumin 3.4 L TSH (Reflex) Vancomycin Trough 06/25/24 06/25/24 06/25/24 05:17 05:57 11:51 WBC RBC Hgb Hct MCHC Neutrophils % (Manual) Lymphocytes % (Manual) Abs Neuts (Manual) Abs Lymphs (Manual) ABG pH 7.299 L ABG pCO2 58.3 H ABG pO2 ABG HCO3 28.0 H ABG O2 Saturation ABG O2 Content 15.3 L Oxyhemoglobin Total Hemoglobin 11.1 L Chloride Carbon Dioxide Anion Gap BUN Creatinine Estimated GFR Glucose POC Capillary Glucose 150 H 154 H Magnesium AST ALT Alkaline Phosphatase Troponin I Total Protein Albumin TSH (Reflex) Vancomycin Trough 12/09/24 12/10/24 12/10/24 17:26 00:17 01:59 WBC 13.6 H RBC 3.41 L Hgb 10.2 L Hct 32.8 L MCHC 31.1 L Neutrophils % (Manual) 83 H Lymphocytes % (Manual) 13.0 L Abs Neuts (Manual) 11.83 H Abs Lymphs (Manual) ABG pH ABG pCO2 ABG pO2 ABG HCO3 ABG O2 Saturation ABG O2 Content Oxyhemoglobin Total Hemoglobin Chloride Carbon Dioxide 32 H Anion Gap 3 L BUN 24 H D Creatinine Estimated GFR Glucose 170 H POC Capillary Glucose 160 H 158 H Magnesium 2.8 H AST ALT 45 H Alkaline Phosphatase Troponin I Total Protein 6.0 L Albumin 3.3 L TSH (Reflex) Vancomycin Trough 7.4 L 06/26/24 06/26/24 06/26/24 05:44 06:19 12:29 WBC RBC Hgb Hct MCHC Neutrophils % (Manual) Lymphocytes % (Manual) Abs Neuts (Manual) Abs Lymphs (Manual) ABG pH 7.343 L ABG pCO2 56.6 H ABG pO2 ABG HCO3 30.1 H ABG O2 Saturation ABG O2 Content 15.5 L Oxyhemoglobin Total Hemoglobin 11.2 L Chloride Carbon Dioxide Anion Gap BUN Creatinine Estimated GFR Glucose POC Capillary Glucose 159 H 172 H Magnesium AST ALT Alkaline Phosphatase Troponin I Total Protein Albumin TSH (Reflex) Vancomycin Trough Diagnostic Findings Additional studies: ITS Impressions Chest X-Ray 06/24/24 06:21 IMPRESSION: 1. Emphysema. Chest CTA 06/24/24 07:46 IMPRESSION: 1. 5.9 cm mass in left kidney suspicious for renal cell carcinoma. Abdomen CT without and with contrast is recommended. 2. No pulmonary embolus. Sensitivity is moderately decreased by motion artifact. 3. Mild pneumonia in right upper lobe and left lower lobe. 4. Severe emphysema. Head CT 06/24/24 12:02 IMPRESSION: 1. Normal brain.
--- NOTE | 2024-06-26 13:59 | P.PNINT_ITS ---
Progress Note: A&P Assessment and Plan (1) Respiratory failure with hypoxia and hypercapnia: Code(s): J96.91 - Respiratory failure, unspecified with hypoxia; J96.92 - Respiratory failure, unspecified with hypercapnia Status: Acute Assessment and Plan: Acute respiratory failure secondary to pneumonia and COPD exacerbation CTA negative for PE -on admission patient was placed on BiPAP but repeat ABG was worse likely secondary to low tidal volumes and high FiO2 After adjusting the BiPAP on the day of admission pCO2 improved -continue BiPAP for now alternating with possible Vapotherm -continue ceftriaxone, doxycycline for community-acquired pneumonia -discontinue vancomycin as MRSA nares is negative -continue bronchodilators and steroids 06/25/2024: CTA chest IMPRESSION: 1. 5.9 cm mass in left kidney suspicious for renal cell carcinoma. Abdomen CT without and with contrast is recommended. 2. No pulmonary embolus. Sensitivity is moderately decreased by motion artifact. 3. Mild pneumonia in right upper lobe and left lower lobe. 4. Severe emphysema. (2) Sepsis: Code(s): A41.9 - Sepsis, unspecified organism Status: Acute Assessment and Plan: Sepsis secondary to community-acquired pneumonia Management of respiratory failure as above -06/25: Blood cultures growing Hemophilus influenzae at 1/2 bottles -06/25/2024: Sputum culture is pending -urine Legionella and pneumococcal antigens pending -lactic acids are normal -antibiotics as above -hemodynamics are stable 06/25/2024: Echocardiogram Summary 1. The left ventricle is normal in size and systolic function. There is concentric left ventricular remodeling. The left ventricular ejection fraction is visually estimated to be 60-65%. 2. The right ventricle is not well visualized however the systolic function by tissue Doppler appears normal. 3. Technically difficult study with limited views. (3) COPD exacerbation: Code(s): J44.1 - Chronic obstructive pulmonary disease with (acute) exacerbation Status: Acute Assessment and Plan: Continue NIPPV, bronchodilators and antibiotics as above (4) PNA (pneumonia): Code(s): J18.9 - Pneumonia, unspecified organism Status: Acute Assessment and Plan: See above (5) Left kidney mass: Code(s): N28.89 - Other specified disorders of kidney and ureter Status: Acute Assessment and Plan: CT scan shows incidental 6 cm left kidney mass suspicious for renal cell carcin vikas. Will order additional workup once patient is stabilized from respiratory standpoint -will have Heme-Onc evaluate the patient (6) Encephalopathy: Code(s): G93.40 - Encephalopathy, unspecified Status: Acute Assessment and Plan: Likely secondary to CO2 narcosis Management of respiratory failure as above Negative head CT Normal ammonia and TSH Improved (7) Elevated troponin: Code(s): R79.89 - Other specified abnormal findings of blood chemistry Status: Acute Assessment and Plan: No documented history of coronary disease. Patient had 1st troponin check which was mildly abnormal and repeat troponin was in normal range. Likely elevation secondary to respiratory failure and tachycardia EKG reviewed. Serial troponins negative Echo as above Monitor Plan DVT prophylaxis -Lovenox Stress ulcer prophylaxis -PPI Nutrition -NPO for now Code Status - Full Code Total Critical Care Time - 35 minutes Discussed with patient and at bedside updated them with patient's condition and plan of care. Due to a high probability of clinically significant, life threatening deterioration, the patient required my highest level of preparedness to intervene emergently and I personally spent this critical care time directly and personally managing the patient. This critical care time included obtaining a history; examining the patient; pulse oximetry; ordering and review of studies; arranging urgent treatment with development of a management plan; evaluation of patient's response to treatment; frequent reassessment; and discussions with other providers. It was exclusive of separately billable procedures and treating other patients and teaching time. Please see Assessment and Plan section and the rest of the note for further information on patient assessment and treatment Subjective Date/time seen: 06/26/24 13:59 Interval history: Reason for consult: Acute hypercapnic respiratory failure, COPD exacerbation, pneumonia, sepsis 06/26/2024: Patient seen and examined the ICU, is awake, alert on nasal cannula, denies any chest pain, shortness a breath, abdominal pain, nausea vomiting. States she feels better this morning. Urine output has been adequate, patient is afebrile, hemodynamically stable. Later in the morning patient desaturated, was placed back on BiPAP, patient was wheezing, patient given a dose of Solu-Medrol, continues nebs Review of Systems Review of Systems: All systems reviewed & are unremarkable except as noted in HPI and below Exam Narrative: General: Patient is awake, alert on nasal cannula, in no acute distress Lungs/Chest: Trachea central Clear BS B/L, decreased air movement throughout lungs bilaterally, bilateral diffuse wheezing Cardiac: Tachycardic. Normal S1 S2. No murmurs Circulation: Pedal pulses are intact and symmetrical. Abdomen: Normal bowel sounds. Obese. Soft. NT. ND. Extremities: No clubbing, cyanosis or edema. Warm : Arambula in place Neurologic: Alert awake, follows commands all 4 extremities. Alert oriented x3 PERRL Skin: No Rash Objective Data Vital Signs Vital Signs: Vital Signs - 24 hr 06/25/24 14:00 06/25/24 14:00 06/25/24 16:00 Temperature Pulse Rate 113 H 113 H Respiratory Rate 22 H Blood Pressure 120/81 Pulse Oximetry 100 99 Oxygen Delivery BiPAP Oxygen Flow Rate Fraction of Inspired Oxygen 35 06/25/24 16:00 06/25/24 16:00 06/25/24 16:03 Temperature 99.2 F Pulse Rate 120 H 117 H 117 H Respiratory Rate 24 H 23 H Blood Pressure 130/81 Pulse Oximetry 99 100 Oxygen Delivery BiPAP Oxygen Flow Rate Fraction of Inspired Oxygen 06/25/24 18:00 06/25/24 18:00 06/25/24 20:00 Temperature Pulse Rate 108 H 108 H Respiratory Rate 21 H Blood Pressure 131/78 Pulse Oximetry 99 100 Oxygen Delivery BiPAP Oxygen Flow Rate Fraction of Inspired Oxygen 35 06/25/24 20:00 06/25/24 20:00 06/25/24 20:40 Temperature 99.1 F Pulse Rate 109 H 109 H 109 H Respiratory Rate 22 H 21 H Blood Pressure 130/83 Pulse Oximetry 100 Oxygen Delivery Oxygen Flow Rate Fraction of Inspired Oxygen 06/25/24 20:40 06/25/24 20:46 06/25/24 22:00 Temperature Pulse Rate 105 H 107 H 110 H Respiratory Rate 19 19 Blood Pressure Pulse Oximetry 100 Oxygen Delivery BiPAP Oxygen Flow Rate Fraction of Inspired Oxygen 06/25/24 22:00 06/26/24 00:00 06/26/24 00:00 Temperature Pulse Rate 110 H 115 H Respiratory Rate 22 H Blood Pressure 109/92 H Pulse Oximetry 99 98 Oxygen Delivery BiPAP Oxygen Flow Rate Fraction of Inspired Oxygen 35 06/26/24 00:00 06/26/24 01:50 06/26/24 01:50 Temperature 99.5 F Pulse Rate 115 H 102 H 102 H Respiratory Rate 29 H 26 H 26 H Blood Pressure 133/79 Pulse Oximetry 98 100 Oxygen Delivery BiPAP Oxygen Flow Rate Fraction of Inspired Oxygen 06/26/24 02:00 06/26/24 02:00 06/26/24 04:00 Temperature Pulse Rate 111 H 111 H Respiratory Rate 27 H Blood Pressure 156/84 H Pulse Oximetry 97 98 Oxygen Delivery BiPAP Oxygen Flow Rate Fraction of Inspired Oxygen 35 06/26/24 04:00 06/26/24 04:00 06/26/24 06:00 Temperature 98.6 F Pulse Rate 95 95 85 Respiratory Rate 24 H Blood Pressure 117/68 Pulse Oximetry 98 Oxygen Delivery Oxygen Flow Rate Fraction of Inspired Oxygen 06/26/24 06:00 06/26/24 07:54 06/26/24 08:00 Temperature Pulse Rate 85 85 Respiratory Rate 22 H 21 H Blood Pressure 109/67 Pulse Oximetry 100 99 Oxygen Delivery BiPAP Oxygen Flow Rate Fraction of Inspired Oxygen 35 06/26/24 08:00 06/26/24 08:00 06/26/24 08:02 Temperature 98.4 F Pulse Rate 102 H 84 88 Respiratory Rate 22 H 23 H Blood Pressure 129/83 Pulse Oximetry 99 Oxygen Delivery Oxygen Flow Rate Fraction of Inspired Oxygen 06/26/24 08:03 06/26/24 10:00 06/26/24 10:00 Temperature Pulse Rate 108 H 108 H Respiratory Rate 26 H Blood Pressure 141/96 H Pulse Oximetry 100 95 Oxygen Delivery Nasal Cannula Oxygen Flow Rate 2 Fraction of Inspired Oxygen 06/26/24 11:28 06/26/24 12:00 06/26/24 12:00 Temperature 98.5 F Pulse Rate 102 H 113 H 112 H Respiratory Rate 24 H 27 H Blood Pressure 149/97 H Pulse Oximetry 99 91 Oxygen Delivery BiPAP Oxygen Flow Rate Fraction of Inspired Oxygen 06/26/24 12:35 06/26/24 12:36 Temperature Pulse Rate 92 121 H Respiratory Rate 20 26 H Blood Pressure Pulse Oximetry 100 Oxygen Delivery BiPAP Oxygen Flow Rate Fraction of Inspired Oxygen Intake/Output Intake/Output: Intake & Output 06/23/24 06/24/24 06/25/24 06/26/24 23:59 23:59 23:59 23:59 Intake Total 3800.0 1870.0 500 Output Total 600 850 375 Balance 3200.0 1020.0 125 Meds/Results Medications: Active Medications Generic Name Dose Route Start Last Admin Trade Name Freq PRN Reason Stop Dose Admin Acetaminophen 650 mg 06/24/24 10:52 Acetaminophen 325 Mg Tablet PO Q4H PRN Mild Pain (1-3) or Fever Dextrose 12.5 gm 06/24/24 12:14 Dextrose 50% 25 Gm/50 Ml Syringe IV PUSH PRN PRN Hypoglycemia Protocol Enoxaparin Sodium 40 mg 06/25/24 09:00 06/26/24 09:41 Enoxaparin 40 Mg/0.4 Ml Syringe SUB-Q 40 mg DAILY MAX Administration Glucagon 1 mg 06/24/24 12:14 Glucagon For Inj 1 Mg Vial IM PRN PRN Hypoglycemia Protocol Glucose 15 gm 06/24/24 12:14 Glucose Oral Gel 15 Gm Of Glucse In 37.5 Gm Tube PO PRN PRN Hypoglycemia Protocol Doxycycline Hyclate 100 mg in 100 mls @ 100 mls/hr 06/24/24 19:00 06/26/24 07:59 Vibramycin 100 Mg/Ns 100 Ml IVPB 100 mls/hr Q12H MAX Administration Lactated Ringer's 1,000 mls @ 50 mls/hr 06/24/24 10:55 06/25/24 11:59 Lr - Lactated Ringers Iv IV CONT 50 mls/hr .Q20H MAX Administration Dextrose 1,000 mls @ 100 mls/hr 06/24/24 12:14 Dextrose 5% 1,000 Ml IVPB PRN PRN Hypoglycemia Protocol Ceftriaxone Sodium 2 gm in 100 mls @ 200 mls/hr 06/26/24 09:00 06/26/24 09:41 Rocephin 2 Gm/Ns 100 Ml IVPB 200 mls/hr DAILY MAX Administration Insulin Aspart 2 - 5 units 06/24/24 18:00 06/26/24 12:30 Insulin Aspart (*Bkc) 100 Units/Ml SUB-Q Not Given Q6HR MAX Protocol Levalbuterol HCl 0.63 mg 06/25/24 20:00 06/26/24 12:38 Levalbuterol Neb 1.25 Mg/3 Ml INHALATION Not Given Q6HRT [facility] Methylprednisolone Sodium Succinate 60 mg 06/24/24 12:00 06/26/24 12:30 Methylprednisolone Sod Succ 125 Mg Vial IV PUSH Not Given Q6HR MAX Ondansetron HCl 4 mg 06/24/24 10:52 Ondansetron Inj 4 Mg/2 Ml Vial IV PUSH Q4H PRN Nausea Pantoprazole Sodium 40 mg 06/25/24 09:00 06/26/24 09:41 Pantoprazole Sodium Iv 40 Mg Vial IV PUSH 40 mg QAM MAX Administration Radiology Results: ITS Impressions Chest X-Ray 06/24/24 06:21 IMPRESSION: 1. Emphysema. Chest CTA 06/24/24 07:46 IMPRESSION: 1. 5.9 cm mass in left kidney suspicious for renal cell carcinoma. Abdomen CT without and with contrast is recommended. 2. No pulmonary embolus. Sensitivity is moderately decreased by motion artifact. 3. Mild pneumonia in right upper lobe and left lower lobe. 4. Severe emphysema. Head CT 06/24/24 12:02 IMPRESSION: 1. Normal brain. Labs Labs: Laboratory Results - last 24 hr 06/25/24 06/26/24 06/26/24 17:26 00:17 01:59 WBC 13.6 H RBC 3.41 L Hgb 10.2 L Hct 32.8 L MCV 96.2 MCH 29.9 MCHC 31.1 L RDW 13.1 Plt Count 290 MPV 9.7 Immature Gran % (Auto) Not Reportable Neut % (Auto) Not Reportable Lymph % (Auto) Not Reportable [place] % (Auto) Not Reportable Eos % (Auto) Not Reportable Baso % (Auto) Not Reportable Lymph # (Auto) Not Reportable [place] # (Auto) Not Reportable Eos # (Auto) Not Reportable Baso # (Auto) Not Reportable Abs Immat Gran (auto) Not Reportable Absolute Neuts (auto) Not Reportable Absolute Nucleated RBC Not Reportable Total Counted 100 Neutrophils % (Manual) 83 H Band Neutrophils % 4 Lymphocytes % (Manual) 13.0 L Nucleated RBC % Not Reportable Abs Neuts (Manual) 11.83 H Abs Lymphs (Manual) 1.76 Platelet Estimate Adequate Schistocytes None seen Puncture Site ABG pH ABG pCO2 ABG pO2 ABG PO2/FiO2 Ratio ABG HCO3 ABG O2 Saturation ABG O2 Content ABG Base Excess A-a Gradient Oxyhemoglobin Carboxyhemoglobin Methemoglobin Reduced Hemoglobin Total Hemoglobin O2 Delivery Device O2 Liters/Min Vent Rate FiO2 Expiratory Pressure Inspiratory Pressure Sodium 141 Potassium 4.6 Chloride 106 Carbon Dioxide 32 H Anion Gap 3 L BUN 24 H D Creatinine 0.80 Estim Creat Clear Calc 61 Estimated GFR > 60 Glucose 170 H POC Capillary Glucose 160 H 158 H Calcium 9.4 Magnesium 2.8 H Total Bilirubin 0.3 AST 25 ALT 45 H Alkaline Phosphatase 106 Total Protein 6.0 L Albumin 3.3 L Vancomycin Trough 7.4 L 06/26/24 06/26/24 06/26/24 05:44 06:19 12:29 WBC RBC Hgb Hct MCV MCH MCHC RDW Plt Count MPV Immature Gran % (Auto) Neut % (Auto) Lymph % (Auto) [place] % (Auto) Eos % (Auto) Baso % (Auto) Lymph # (Auto) [place] # (Auto) Eos # (Auto) Baso # (Auto) Abs Immat Gran (auto) Absolute Neuts (auto) Absolute Nucleated RBC Total Counted Neutrophils % (Manual) Band Neutrophils % Lymphocytes % (Manual) Nucleated RBC % Abs Neuts (Manual) Abs Lymphs (Manual) Platelet Estimate Schistocytes Puncture Site Not Reportable ABG pH 7.343 L ABG pCO2 56.6 H ABG pO2 99.1 ABG PO2/FiO2 Ratio 3.30 ABG HCO3 30.1 H ABG O2 Saturation 97.1 ABG O2 Content 15.5 L ABG Base Excess 3.3 A-a Gradient 48.3 Oxyhemoglobin 97.4 Carboxyhemoglobin 0.3 Methemoglobin 0.0 Reduced Hemoglobin 2.3 Total Hemoglobin 11.2 L O2 Delivery Device Non-invasive vent O2 Liters/Min Not Reportable Vent Rate 16 FiO2 30 Expiratory Pressure 8 Inspiratory Pressure 20 Sodium Potassium Chloride Carbon Dioxide Anion Gap BUN Creatinine Estim Creat Clear Calc Estimated GFR Glucose POC Capillary Glucose 159 H 172 H Calcium Magnesium Total Bilirubin AST ALT Alkaline Phosphatase Total Protein Albumin Vancomycin Trough Quality VTE Prophylaxis VTE prophylaxis: pharmacologic ordered
--- NOTE | 2024-06-26 14:30 | PCOTNOTE ---
Attempted to see pt. for occupational therapy evaluation. Nursing reports cms expert requests cancelation of orders, as pt. is not longer medically appropriate. Re-order when pt. an safely particiapte.
[2024-06-26] MEDS: LACTATED RINGERS 1,000 ML 50 ML IV CONT (15:49)
--- NOTE | 2024-06-26 15:52 | PCPTNOTE ---
PER OT: Nursing reports cashier supervisor requests cancelation of orders, as pt. is no longer medically appropriate. Re-order when pt. an safely particiapte.
[2024-06-26 17:21] LABS: Influenza A QL RT-PCR Negative (Negative); Influenza B QL RT-PCR Negative (Negative); RSV RNA, RT-PCR Negative (Negative); SARS-CoV-2 RNA PCR Negative (Negative)
[2024-06-26] MEDS: INSULIN ASPART (*BKC) 100 UNITS/ML SUB-Q (18:09)
[2024-06-26] MEDS: methylPREDNISolone SOD SUCC 40 MG VIAL 20 MG IV PUSH ×2 (18:09→23:38)
[2024-06-26 18:17] LABS: Glucose Point of Care 252 mg/dl (65-105)
[2024-06-26] MEDS: IPRATROPIUM BR 0.02% INH SOLN 0.5 MG/2.5 ML VIAL INHALATION (20:19)
[2024-06-26 23:56] LABS: Glucose Point of Care 180 mg/dl (65-105)
[2024-06-27] VITALS (21 sets, daily range): BP systolic 102–137; BP diastolic 72–94; PULSE 72–110; RESP 17–28; TEMP 36.9–37.2; O2SAT 96–100
[2024-06-27] MEDS: IPRATROPIUM BR 0.02% INH SOLN 0.5 MG/2.5 ML VIAL INHALATION ×4 (02:16→21:02)
[2024-06-27] MEDS: LEVALBUTEROL NEB 1.25 MG/3 ML 0.63 MG INHALATION ×4 (02:16→21:00)
[2024-06-27 04:37] LABS: Basophils Absolute Auto 0.1 K/mm3 (0.0-0.1); Basophils Percent Auto 0.9 % (0.2-1.2); Hematocrit 32.4 % (37.0-47.0); Hemoglobin 9.8 g/dL (12.0-15.0); Immature Granulocyte Absolute 1.76 K/mm3 (0.00-0.031); Immature Granulocyte Percent A 12.1 % (0-0.5); Lymphocytes Absolute Auto 0.64 K/mm3 (0.9-3.2); Lymphocytes Percent Auto 4.4 % (18.3-44.2); Mean Corpuscular HGB Conc 30.2 g/dl (32-36); Mean Corpuscular Hemoglobin 29.3 pg (26-34); Mean Corpuscular Volume 96.7 fl (80-100); Mean Platelet Volume 9.7 fl (7.4-10.4); Monocytes Percent Auto 7.1 % (2.6-8.5); Neutrophils Percent Auto 75.5 % (45.5-73.1); Platelet Count Result 287 k/mm3 (150-375); Red Blood Count 3.35 M/mm3 (4.2-5.4); Red Cell Distribution Width 13.2 % (11.5-14.5); White Blood Count 14.6 K/mm3 (4.5-10.0)
[2024-06-27 04:40] LABS: Alveolar/Arterial O2 Gradient 69.4 mmHg; Base Excess ABG 5.4 mEq/l (+/-2.0); Fractional Inspired Oxygen 32 %; HCO3 ABG 31.1 mEq/l (22.0-26.0); Oxygen Content ABG 14.9 %vol (16.0-22.0); Oxygen Saturation ABG 97.4 % (95.0-100.0); Oxyhemoglobin 97.3 % THb (90.0-100.0); PCO2 ABG 51.2 mmHg (35.0-45.0); PO2 ABG 98.9 mmHg (80.0-100.0); PO2 FiO2 Ratio Arterial Blood 3.09 %; Total Hemoglobin 10.8 g/dL (12.0-18.0); pH ABG 7.402 (7.350-7.450)
[2024-06-27 04:42] LABS: Device OTHER DEVICE; Modified Allen's Test Pass; Site Drawn RIGHT RADIAL
[2024-06-27 04:50] LABS: Alanine Aminotransferase 46 U/L (6-35); Albumin Level 3.1 g/dL (3.5-5.1); Alkaline Phosphatase 116 U/L (38-126); Anion Gap -2 mmol/L (4-12); Aspartate Amino Transferase 22 U/L (14-36); Bilirubin,Total 0.3 mg/dL (0.2-1.3); Blood Urea Nitrogen 28 mg/dL (7-17); Calcium 9.3 mg/dL (8.4-10.2); Carbon Dioxide 37 mmol/L (22-30); Chloride 107 mmol/L (98-107); Estimated CRCL calculation 56 ml/min; Estimated Glomerular Filt Rate > 60; Glucose 178 mg/dL (65-110); Magnesium 2.9 mg/dL (1.6-2.3); Phosphorus 2.5 mg/dL (2.5-4.5); Potassium 4.2 mmol/L (3.4-5.0); Sodium 142 mmol/L (137-145)
[2024-06-27] MEDS: methylPREDNISolone SOD SUCC 40 MG VIAL 20 MG IV PUSH (05:29)
[2024-06-27] MEDS: BUDESONIDE RESPULE NEB 0.5 MG/2 ML AMP NEBULIZE ×2 (08:08→21:02)
[2024-06-27] MEDS: DOXYCYCLINE 100 MG/NS 100 ML 100 MG/100 ML BAG IVPB ×2 (08:13→19:50)
[2024-06-27] MEDS: PANTOPRAZOLE SODIUM IV 40 MG VIAL IV PUSH (08:14)
[2024-06-27] MEDS: ENOXAPARIN 40 MG/0.4 ML SYRINGE SUB-Q (08:14)
--- NOTE | 2024-06-27 08:47 | P.PNINT_ITS ---
Progress Note: A&P Assessment and Plan (1) Respiratory failure with hypoxia and hypercapnia: Code(s): J96.91 - Respiratory failure, unspecified with hypoxia; J96.92 - Respiratory failure, unspecified with hypercapnia Status: Acute Assessment and Plan: Acute respiratory failure secondary to pneumonia and COPD exacerbation CTA negative for PE -on admission patient was placed on BiPAP but repeat ABG was worse likely secondary to low tidal volumes and high FiO2 -currently on AVAPS, will alternate with possible Vapotherm -continue ceftriaxone, doxycycline for community-acquired pneumonia -discontinue vancomycin as MRSA nares is negative -continue bronchodilators -continue inhaled corticosteroid -appreciate pulmonology following the patient, IV steroids discontinued 06/25/2024: CTA chest IMPRESSION: 1. 5.9 cm mass in left kidney suspicious for renal cell carcinoma. Abdomen CT without and with contrast is recommended. 2. No pulmonary embolus. Sensitivity is moderately decreased by motion artifact. 3. Mild pneumonia in right upper lobe and left lower lobe. 4. Severe emphysema. (2) Sepsis: Code(s): A41.9 - Sepsis, unspecified organism Status: Acute Assessment and Plan: Sepsis secondary to community-acquired pneumonia Management of respiratory failure as above -06/25: Blood cultures growing Hemophilus influenzae at 1/2 bottles, sensitivities pending -06/25/2024: Sputum culture with no growth -urine Legionella and pneumococcal antigens pending -viral panel per pulmonology is pending -lactic acids are normal -antibiotics as above -hemodynamics are stable 06/25/2024: Echocardiogram Summary 1. The left ventricle is normal in size and systolic function. There is concentric left ventricular remodeling. The left ventricular ejection fraction is visually estimated to be 60-65%. 2. The right ventricle is not well visualized however the systolic function by tissue Doppler appears normal. 3. Technically difficult study with limited views. (3) COPD exacerbation: Code(s): J44.1 - Chronic obstructive pulmonary disease with (acute) exacerbation Status: Acute Assessment and Plan: Continue NIPPV, bronchodilators and antibiotics as above (4) PNA (pneumonia): Code(s): J18.9 - Pneumonia, unspecified organism Status: Acute Assessment and Plan: See above (5) Left kidney mass: Code(s): N28.89 - Other specified disorders of kidney and ureter Status: Acute Assessment and Plan: CT scan shows incidental 6 cm left kidney mass suspicious for renal cell carcinoma. Will order additional workup once patient is stabilized from respiratory standpoint -have consulted Heme-Onc to evaluate the patient (6) Encephalopathy: Code(s): G93.40 - Encephalopathy, unspecified Status: Acute Assessment and Plan: Likely secondary to CO2 narcosis Management of respiratory failure as above Negative head CT Normal ammonia and TSH Improved (7) Elevated troponin: Code(s): R79.89 - Other specified abnormal findings of blood chemistry Status: Acute Assessment and Plan: No documented history of coronary disease. Patient had 1st troponin check which was mildly abnormal and repeat troponin was in normal range. Likely elevation secondary to respiratory failure and tachycardia EKG reviewed. Serial troponins negative Echo as above Monitor Plan DVT prophylaxis -Lovenox Stress ulcer prophylaxis -PPI Nutrition -may start clear liquid diet Code Status - Full Code Total Critical Care Time - 33 minutes Discussed with patient and at bedside updated them with patient's condition and plan of care. Due to a high probability of clinically significant, life threatening deterioration, the patient required my highest level of preparedness to intervene emergently and I personally spent this critical care time directly and personally managing the patient. This critical care time included obtaining a history; examining the patient; pulse oximetry; ordering and review of studies; arranging urgent treatment with development of a management plan; evaluation of patient's response to treatment; frequent reassessment; and discussions with other providers. It was exclusive of separately billable procedures and treating other patients and teaching time. Please see Assessment and Plan section and the rest of the note for further information on patient assessment and treatment This dictation may have been done utilizing a voice recognition system. Attempts have been made to correct errors. However, there may be uncorrected grammatical, spelling, and recognitions errors present. Subjective Date/time seen: 06/27/24 08:47 Interval history: Reason for consult: Acute hypercapnic respiratory failure, COPD exacerbation, pneumonia, sepsis 06/27/2024: Patient seen and examined the ICU is awake, alert, oriented, on AVAPS all through the night. States she feels better, denies any shortness of breath, chest pain, abdominal pain, nausea, vomiting. Urine output has been adequate, afebrile, hemodynamically stable , was placed back on BiPAP, patient was wheezing, patient given a dose of Solu- Medrol, continues nebs Review of Systems Review of Systems: All systems reviewed & are unremarkable except as noted in HPI and below Exam Narrative: General: Patient is awake, alert on nasal cannula, in no acute distress Lungs/Chest: Trachea central Clear BS B/L, decreased air movement throughout lungs bilaterally, no wheezing Cardiac: Tachycardic. Normal S1 S2. No murmurs Circulation: Pedal pulses are intact and symmetrical. Abdomen: Normal bowel sounds. Obese. Soft. NT. ND. Extremities: No clubbing, cyanosis or edema. Warm : Arambula in place Neurologic: Alert awake, follows commands all 4 extremities. Alert oriented x3 PERRL Skin: No Rash Objective Data Vital Signs Vital Signs: Vital Signs - 24 hr 06/26/24 10:00 06/26/24 10:00 06/26/24 11:28 Temperature Pulse Rate 108 H 108 H 102 H Respiratory Rate 26 H 24 H Blood Pressure 141/96 H Pulse Oximetry 95 99 Oxygen Delivery BiPAP Oxygen Flow Rate Fraction of Inspired Oxygen 06/26/24 12:00 06/26/24 12:00 06/26/24 12:00 Temperature 98.5 F Pulse Rate 113 H 112 H Respiratory Rate 27 H Blood Pressure 149/97 H Pulse Oximetry 91 96 Oxygen Delivery BiPAP Oxygen Flow Rate Fraction of Inspired Oxygen 35 06/26/24 12:35 06/26/24 12:36 06/26/24 14:00 Temperature Pulse Rate 92 121 H 117 H Respiratory Rate 20 26 H Blood Pressure Pulse Oximetry 100 Oxygen Delivery BiPAP Oxygen Flow Rate Fraction of Inspired Oxygen 06/26/24 14:00 06/26/24 16:00 06/26/24 16:00 Temperature Pulse Rate 117 H 115 H Respiratory Rate 20 Blood Pressure 133/78 Pulse Oximetry 100 97 Oxygen Delivery High Flow Therapy with Na Oxygen Flow Rate 30 Fraction of Inspired Oxygen 32 06/26/24 16:00 06/26/24 16:01 06/26/24 18:00 Temperature 99.7 F H Pulse Rate 107 H 125 H 114 H Respiratory Rate 23 H 24 H Blood Pressure 122/72 Pulse Oximetry 97 93 Oxygen Delivery High Flow Therapy with Na Oxygen Flow Rate 30 Fraction of Inspired Oxygen 32 06/26/24 18:00 06/26/24 20:00 06/26/24 20:00 Temperature Pulse Rate 114 H 101 H Respiratory Rate 24 H Blood Pressure 111/76 Pulse Oximetry 98 Oxygen Delivery BiPAP Oxygen Flow Rate Fraction of Inspired Oxygen 32 06/26/24 20:00 06/26/24 20:20 06/26/24 20:20 Temperature 99.3 F Pulse Rate 101 H 94 94 Respiratory Rate 20 23 H 23 H Blood Pressure 105/80 Pulse Oximetry 99 98 Oxygen Delivery BiPAP Oxygen Flow Rate Fraction of Inspired Oxygen 06/26/24 20:39 06/26/24 22:00 06/26/24 22:00 Temperature Pulse Rate 108 H 99 99 Respiratory Rate 27 H 24 H Blood Pressure 100/72 Pulse Oximetry 98 Oxygen Delivery Oxygen Flow Rate Fraction of Inspired Oxygen 06/26/24 22:55 06/27/24 00:00 06/27/24 00:00 Temperature Pulse Rate 101 H 78 Respiratory Rate 24 H Blood Pressure Pulse Oximetry 100 Oxygen Delivery BiPAP BiPAP Oxygen Flow Rate Fraction of Inspired Oxygen 32 06/27/24 00:00 06/27/24 02:00 06/27/24 02:00 Temperature 98.9 F Pulse Rate 78 102 H 102 H Respiratory Rate 27 H 28 H Blood Pressure 106/72 102/76 Pulse Oximetry 99 98 Oxygen Delivery Oxygen Flow Rate Fraction of Inspired Oxygen 06/27/24 02:16 06/27/24 02:16 06/27/24 04:00 Temperature Pulse Rate 76 76 90 Respiratory Rate 23 H 23 H Blood Pressure Pulse Oximetry 99 Oxygen Delivery BiPAP Oxygen Flow Rate Fraction of Inspired Oxygen 06/27/24 04:00 06/27/24 04:00 06/27/24 04:44 Temperature 98.9 F Pulse Rate 90 72 Respiratory Rate 17 17 Blood Pressure 113/72 Pulse Oximetry 96 99 Oxygen Delivery BiPAP BiPAP Oxygen Flow Rate Fraction of Inspired Oxygen 32 06/27/24 06:00 06/27/24 06:00 06/27/24 08:00 Temperature 98.4 F Pulse Rate 77 77 91 Respiratory Rate 25 H 19 Blood Pressure 117/75 132/94 H Pulse Oximetry 100 99 Oxygen Delivery Oxygen Flow Rate Fraction of Inspired Oxygen 06/27/24 08:13 06/27/24 08:13 06/27/24 08:13 Temperature Pulse Rate 81 81 Respiratory Rate 20 20 Blood Pressure Pulse Oximetry 98 98 Oxygen Delivery BiPAP BiPAP Oxygen Flow Rate Fraction of Inspired Oxygen 32 06/27/24 08:43 Temperature Pulse Rate Respiratory Rate Blood Pressure Pulse Oximetry 99 Oxygen Delivery High Flow Therapy with Na Oxygen Flow Rate 30 Fraction of Inspired Oxygen 32 Intake/Output Intake/Output: Intake & Output 06/24/24 06/25/24 06/26/24 06/27/24 23:59 23:59 23:59 23:59 Intake Total 3800.0 1870.0 2100 Output Total 600 850 775 350 Balance 3200.0 1020.0 1325 -350 Meds/Results Medications: Active Medications Generic Name Dose Route Start Last Admin Trade Name Freq PRN Reason Stop Dose Admin Acetaminophen 650 mg 06/24/24 10:52 Acetaminophen 325 Mg Tablet PO Q4H PRN Mild Pain (1-3) or Fever Budesonide 0.5 mg 06/27/24 08:00 06/27/24 08:08 Budesonide Respule Neb 0.5 Mg/2 Ml Amp NEBULIZE 0.5 mg Q12HRT MAX Administration Dextrose 12.5 gm 06/24/24 12:14 Dextrose 50% 25 Gm/50 Ml Syringe IV PUSH PRN PRN Hypoglycemia Protocol Enoxaparin Sodium 40 mg 06/25/24 09:00 06/27/24 08:14 Enoxaparin 40 Mg/0.4 Ml Syringe SUB-Q 40 mg DAILY MAX Administration Glucagon 1 mg 06/24/24 12:14 Glucagon For Inj 1 Mg Vial IM PRN PRN Hypoglycemia Protocol Glucose 15 gm 06/24/24 12:14 Glucose Oral Gel 15 Gm Of Glucse In 37.5 Gm Tube PO PRN PRN Hypoglycemia Protocol Doxycycline Hyclate 100 mg in 100 mls @ 100 mls/hr 06/24/24 19:00 06/27/24 08:13 Vibramycin 100 Mg/Ns 100 Ml IVPB 100 mls/hr Q12H MAX Administration Lactated Ringer's 1,000 mls @ 50 mls/hr 06/24/24 10:55 06/26/24 23:39 Lr - Lactated Ringers Iv IV CONT Not Given .Q20H MAX Dextrose 1,000 mls @ 100 mls/hr 06/24/24 12:14 Dextrose 5% 1,000 Ml IVPB PRN PRN Hypoglycemia Protocol Ceftriaxone Sodium 2 gm in 100 mls @ 200 mls/hr 06/26/24 09:00 06/26/24 10:11 Rocephin 2 Gm/Ns 100 Ml IVPB Infused DAILY MAX Infusion Insulin Aspart 2 - 5 units 06/24/24 18:00 06/27/24 05:29 Insulin Aspart (*Bkc) 100 Units/Ml SUB-Q Not Given Q6HR [facility] Protocol Ipratropium [place] 0.5 mg 06/26/24 20:00 06/27/24 08:08 Ipratropium Br 0.02% Inh Soln 0.5 Mg/2.5 Ml Vial INHALATION 0.5 mg Q6HRT MAX Administration Levalbuterol HCl 0.63 mg 06/25/24 20:00 06/27/24 08:08 Levalbuterol Neb 1.25 Mg/3 Ml INHALATION 0.63 mg Q6HRT MAX Administration Ondansetron HCl 4 mg 06/24/24 10:52 Ondansetron Inj 4 Mg/2 Ml Vial IV PUSH Q4H PRN Nausea Pantoprazole Sodium 40 mg 06/25/24 09:00 06/27/24 08:14 Pantoprazole Sodium Iv 40 Mg Vial IV PUSH 40 mg QAM MAX Administration Radiology Results: ITS Impressions Chest CTA 06/24/24 07:46 IMPRESSION: 1. 5.9 cm mass in left kidney suspicious for renal cell carcinoma. Abdomen CT without and with contrast is recommended. 2. No pulmonary embolus. Sensitivity is moderately decreased by motion artifact. 3. Mild pneumonia in right upper lobe and left lower lobe. 4. Severe emphysema. Head CT 06/24/24 12:02 IMPRESSION: 1. Normal brain. Chest X-Ray 06/27/24 06:23 Impression: COPD. Clear lungs. Labs Labs: Laboratory Results - last 24 hr 06/26/24 06/26/24 06/26/24 12:29 16:40 18:07 WBC RBC Hgb Hct MCV MCH MCHC RDW Plt Count MPV Immature Gran % (Auto) Neut % (Auto) Lymph % (Auto) [place] % (Auto) Eos % (Auto) Baso % (Auto) Lymph # (Auto) [place] # (Auto) Eos # (Auto) Baso # (Auto) Abs Immat Gran (auto) Absolute Neuts (auto) Absolute Nucleated RBC Nucleated RBC % Puncture Site ABG pH ABG pCO2 ABG pO2 ABG PO2/FiO2 Ratio ABG HCO3 ABG O2 Saturation ABG O2 Content ABG Base Excess A-a Gradient Oxyhemoglobin Total Hemoglobin O2 Delivery Device O2 Liters/Min FiO2 Sodium Potassium Chloride Carbon Dioxide Anion Gap BUN Creatinine Estim Creat Clear Calc Estimated GFR Glucose POC Capillary Glucose 172 H 252 H Calcium Phosphorus Magnesium Total Bilirubin AST ALT Alkaline Phosphatase Total Protein Albumin Influenza A (RT-PCR) Negative Influenza B (RT-PCR) Negative RSV (RT-PCR) Negative SARS-CoV-2 RNA (RT-PCR) Negative 06/26/24 06/27/24 06/27/24 23:34 04:25 04:34 WBC 14.6 H RBC 3.35 L Hgb 9.8 L Hct 32.4 L MCV 96.7 MCH 29.3 MCHC 30.2 L RDW 13.2 Plt Count 287 MPV 9.7 Immature Gran % (Auto) 12.1 H Neut % (Auto) 75.5 H Lymph % (Auto) 4.4 L [place] % (Auto) 7.1 Eos % (Auto) 0.0 Baso % (Auto) 0.9 Lymph # (Auto) 0.64 L [place] # (Auto) 1.0 H Eos # (Auto) 0.0 Baso # (Auto) 0.1 Abs Immat Gran (auto) 1.76 H Absolute Neuts (auto) 11.0 H Absolute Nucleated RBC 0.000 Nucleated RBC % 0.0 Puncture Site Right radial ABG pH 7.402 ABG pCO2 51.2 H ABG pO2 98.9 ABG PO2/FiO2 Ratio 3.09 ABG HCO3 31.1 H ABG O2 Saturation 97.4 ABG O2 Content 14.9 L ABG Base Excess 5.4 A-a Gradient 69.4 Oxyhemoglobin 97.3 Total Hemoglobin 10.8 L O2 Delivery Device Other device O2 Liters/Min Not Reportable FiO2 32 Sodium 142 Potassium 4.2 Chloride 107 Carbon Dioxide 37 H Anion Gap -2 L BUN 28 H Creatinine 0.90 Estim Creat Clear Calc 56 Estimated GFR > 60 Glucose 178 H POC Capillary Glucose 180 H Calcium 9.3 Phosphorus 2.5 Magnesium 2.9 H Total Bilirubin 0.3 AST 22 ALT 46 H Alkaline Phosphatase 116 Total Protein 6.0 L Albumin 3.1 L Influenza A (RT-PCR) Influenza B (RT-PCR) RSV (RT-PCR) SARS-CoV-2 RNA (RT-PCR) Quality VTE Prophylaxis VTE prophylaxis: pharmacologic ordered
[2024-06-27] MEDS: cefTRIAXone 2 GM/NS 100 ML 2 GM/100 ML BAG IVPB (09:53)
--- NOTE | 2024-06-27 10:05 | PM.PNPUL ---
Progress Note: A&P Assessment and Plan (1) COPD exacerbation: Code(s): J44.1 - Chronic obstructive pulmonary disease with (acute) exacerbation Status: Acute Assessment and Plan: Patient has a history of COPD Thirty pack year tobacco use, quit in 2017, vaping E cigarettes since then,with PFTs from 06/28/2016 with severe obstruction, positive bronchodilator response, moderately decreased DLCO. CT scan of the chest dating back to 01/22/2017 with moderate emphysema. the patient presents on 06/24/2024 with acute on chronic hypercarbic respiratory failure with blood gas on BiPAP of 7.24/73/314. Her serum bicarb on admission was 33. Plan: Agree with treating patient for COPD exacerbation. I will decrease her IV Solu-Medrol from 60 mg q.6 hours to 20 mg q.6 hours. She is tachycardic and will continue levalbuterol 0.63 mg nebs q.6 hours. I will add ipratropium 0.5 mg nebs q.6 hours. I will repeat COVID, RSV, influenza swab. I will send a respiratory pathogen panel to assess for 21 different respiratory viruses. I will send a mycoplasma IgM. At this time would continue ceftriaxone and doxycycline both day 3. 06/27/2024: Patient wore the noninvasive ventilator most of the day yesterday but was off for a few hours on Airvo yesterday afternoon. Overall she feels that she is a little better. She has a dry cough and no wheezing. Currently patient is on AVAPS 32% with saturations 98%. Her white blood cell count is 14.6, creatinine is 0.9. Chest x-ray today shows no consolidations, pleural effusions. Plan: I have discontinued her Solu-Medrol. Will continue levalbuterol 0.63 and ipratropium 0.5 mg nebs q.6 hours. Repeat COVID RSV influenza swab negative. Respiratory pathogen panel, mycoplasma IgM, urine Legionella, urine pneumococcal pending. Continue ceftriaxone for Haemophilus influenzae with beta lactamase in the blood and doxycycline both day 4. Patient can use noninvasive on a p.r.n. basis with goal saturations 90-94% if she is off with Airvo or high-flow nasal cannula as tolerated. Discussed with Dr. Macedo. Will follow with you. (2) Respiratory failure with hypoxia and hypercapnia: Code(s): J96.91 - Respiratory failure, unspecified with hypoxia; J96.92 - Respiratory failure, unspecified with hypercapnia Status: Acute Assessment and Plan: The patient presents on 06/24/2024 with acute on chronic hypercarbic respiratory failure with blood gas on BiPAP of 7.24/73/314. Her serum bicarb on admission was 33. The patient has chronic hypercarbic respiratory failure from COPD. She would benefit from noninvasive ventilation to prevent further deterioration and subsequent hospitalizations. Patient cannot tolerate BiPAP due to the high pressures. I will initiate noninvasive ventilation with the AVAPS mode. 06/26/2024: Currently the patient is on BiPAP rate of 16 pressures 20/8 50% FiO2 with saturations 100%. The patient states that she is breathing better than when she arrived. The patient states that she cannot tolerate the BiPAP pressures. Her white blood cell count is 13.6, creatinine is 0.8. Blood gas is 7.34/57/99 on these settings. I changed the patient to the AVAPS mode and adjust the settings to comfort resulting in a rate of 14, tidal volume 500, EPAP 5, minimal inspiratory pressure 6, maximal inspiratory pressure 25, inspiratory time 1.0, rise of 3 and 32% FiO2. Plan: I will obtain ABG in the morning prior to removal of the noninvasive ventilation with the AVAPS. 06/27/24: She slept with the noninvasive ventilator in the AVAPS settings as above and did well and said that she did sleep last night. ABG prior to removal of 7.40/51/99. Plan: Current noninvasive ventilator settings provide adequate ventilation. Once the patient oxygenation has stabilized will perform overnight oximetry on these settings. I have spoken to the public policy coordinator and will initiate the process for a home noninvasive ventilator. Subjective Date/time seen: 06/27/24 10:05 Interval history: 06/26/2024: This is a new pulmonary consult for COPD with hypercarbic respiratory failure. 58-year-old with a history of severe COPD, asthma, hypertension and current vaping. Patient is currently on BiPAP in the ICU. Family is in the room and patient had 2 weeks shortness of breath, fever, cough and presented to the emergency room on 06/24/2024 with room air sats by EMS 61%. she had bilateral wheezing, white blood cell count 11.6, eosinophils 0%. Creatinine 1.0, MRSA swab negative, COVID, influenza, RSV swab negative, CT angiogram of the chest with no PE, very minimal infiltrate in the right upper lobe and left lower lobe and bilateral severe apical predominant panlobular emphysema. She was placed on CPAP And then placed on BiPAP. Blood gas on BiPAP 15/5 with pH of 7.24/73/314. Patient was given IV fluids, nebulizers, Solu-Medrol, ceftriaxone and doxycycline and admitted to the ICU. 06/26/2024: Currently the patient is on BiPAP rate of 16 pressures 20/8 50% FiO2 with saturations 100%. The patient states that she is breathing better than when she arrived. The patient states that she cannot tolerate the BiPAP pressures. Her white blood cell count is 13.6, creatinine is 0.8. Blood gas is 7.34/57/99 on these settings. I changed the patient to the AVAPS mode and adjust the settings to comfort resulting in a rate of 14, tidal volume 500, EPAP 5, minimal inspiratory pressure 6, maximal inspiratory pressure 25, inspiratory time 1.0, rise of 3 and 32% FiO2. 06/27/2024: Patient wore the noninvasive ventilator most of the day yesterday but was off for a few hours on Airvo yesterday afternoon. She slept with the noninvasive ventilator in the AVAPS settings as above and did well and said that she did sleep last night. ABG prior to removal of 7.40/51/99. Overall she feels that she is a little better. She has a dry cough and no wheezing. Currently patient is on AVAPS 32% with saturations 98%. Her white blood cell count is 14.6, creatinine is 0.9. Chest x-ray today shows no consolidations, pleural effusions. DATA: 06/25/24: Echo Summary 1. The left ventricle is normal in size and systolic function. There is concentric left ventricular remodeling. The left ventricular ejection fraction is visually estimated to be 60-65%. 2. The right ventricle is not well visualized however the systolic function by tissue Doppler appears normal. 3. Technically difficult study with limited views. Right Ventricle The right ventricle is not well visualized however the systolic function by tissue Doppler appears normal. Left Atria The left atrium is normal size. Right Atria The right atrium is normal size. 06/24/24: EXAMINATION: CTA chest PE protocol DATE: 06/24/2024 07:39 INDICATION: Hypoxia. TECHNIQUE: Computed tomography angiography (CTA) of the chest was performed with 100 mL Omnipaque-350 intravenous contrast timed to evaluate the pulmonary arteries. Coronal maximum intensity projection 3D-reconstructions were created by the technologist. Automated exposure control and iterative reconstruction technique were employed. The dose-length product was 723.65 mGy-cm. COMPARISON: Chest CT 01/22/17 FINDINGS: There is severe emphysema. There are centrilobular nodules in left lower lobe and right upper lobe. No pleural effusion. The heart size is normal. No pericardial effusion. There is no pulmonary embolus. Calcifications in the liver and spleen are consistent with old granulomatous disease. Partially visualized is a 5.9 cm mass in left kidney. There are masses in the adrenal glands measuring up to 13 mm on the left without change, likely adenomas. There is mild thoracic and lumbar spondylosis. IMPRESSION: 1. 5.9 cm mass in left kidney suspicious for renal cell carcinoma. Abdomen CT without and with contrast is recommended. 2. No pulmonary embolus. Sensitivity is moderately decreased by motion artifact. 3. Mild pneumonia in right upper lobe and left lower lobe. 4. Severe emphysema. 01/22/2017: EXAMINATION: CTA CHEST (PULMONARY ART) INDICATION: Shortness of breath. TECHNIQUE: Computed tomography angiography (CTA) of the chest was performed with 100 mL Omnipaque-350 intravenous contrast timed to evaluate the pulmonary arteries. Coronal maximum intensity projection 3D-reconstructions were created by the technologist. Automated exposure control and iterative reconstruction technique were employed. The dose-length product was 273 mGy-cm. COMPARISON: Chest single view 01/22/17 FINDINGS: There is moderate emphysema. There is mild scarring at the lung apices. There is mild atelectasis in lingula. A calcified left lung nodule and calcified left hilar lymph nodes are consistent with old granulomatous disease. No pleural effusion. The heart size is normal. No pericardial effusion. There is no pulmonary embolus. There is mild bilateral hilar and mediastinal lymphadenopathy. For example, a right hilar node measures 20 x 17 mm. There is a 2.2 cm mass in right adrenal gland measuring low attenuation, consistent with an adenoma. There is mild thoracic spondylosis. IMPRESSION: 1. No pulmonary embolus. 2. Moderate emphysema. 3. Mild bilateral hilar and mediastinal lymphadenopathy, likely reactive. 06/28/2016: PFT report FVC NORMAL, FEV1, FEV1% DECREASED. THERE IS ACUTE BRONCHODILATOR RESPONSE. LUNG VOLUMES ARE ALL INCREASED CONSISTENT WITH HYPERINFLATION AND AIR TRAPPING. RAW IS INCREASED. DLCO IS MODERATELY DECREASED WITH PARTIAL CORRECTION FOR VA. IMPRESSION: SEVERE OBSTRUCTIVE VENTILATORY DEFECT WITH ACUTE BRONCHODILATOR RESPONSE. MODERATELY DECREASED DLCO. ABG (RA) 7.41/ 43/ 72/ 27/ 87%/ CoHb 8.2 REVEALS MILD HYPOXEMIA WITH SIGNIFICANTLY DECREASED O2 CONTENT SECONDARY TO INCREASED CoHb. Review of Systems Constitutional: Constitutional: Reports no additional constitutional complaints Eyes: Eyes: Reports no additional eye complaints ENT: Reports system reviewed and no additional complaints, except as documented Cardiovascular: Cardiovascular: Reports no additional cardiovascular complaints Respiratory: Respiratory: Reports no additional respiratory complaints Gastrointestinal: Gastrointestinal: Reports no additional gastrointestinal complaints Musculoskeletal: Musculoskeletal: Reports no additional musculoskeletal complaints Neurologic: Reports system reviewed and no additional complaints, except as documented Psychiatric: Psychiatric: Reports no additional psychiatric complaints Endocrine: Endocrine: Reports no additional endocrine complaints Hematologic/Lymphatic: Hematologic/Lymphatic: Reports no additional hematologic/lymphatic complaints Allergic/Immunologic: Allergic/Immunologic: Reports no additional allergic/immunologic complaints Exam Const: General: cooperative, healthy appearing and comfortable Orientation/consciousness: oriented to person, oriented to place and oriented to time HENMT: Head: normal to inspection Ears: hearing grossly normal bilaterally Eyes: General: appearance normal, both eyes and all related structures Neck: Neck: normal visual inspection Chest: Chest palpation & inspection: normal inspection of the chest Resp: Effort & Inspection: normal respiratory effort and able to speak in complete sentences Auscultation: no crackles, no rales, no rhonchi, no wheezes and diminished lung sounds Cardio: Jugular venous distension: no JVD GI: Inspection: normal to inspection Skin: General skin exam: normal color Neuro: General: oriented to person, oriented to place and oriented to time Extrem: General: normal to inspection and no edema Psych: Appearance: grossly normal Objective Data Vital Signs Vital Signs: Vital Signs - 24 hr 06/26/24 11:28 06/26/24 12:00 06/26/24 12:00 Temperature 36.9 C Pulse Rate 102 H 113 H 112 H Respiratory Rate 24 H 27 H Blood Pressure 149/97 H Pulse Oximetry 99 91 Oxygen Delivery BiPAP Oxygen Flow Rate Fraction of Inspired Oxygen 06/26/24 12:00 06/26/24 12:35 06/26/24 12:36 Temperature Pulse Rate 92 121 H Respiratory Rate 20 26 H Blood Pressure Pulse Oximetry 96 100 Oxygen Delivery BiPAP BiPAP Oxygen Flow Rate Fraction of Inspired Oxygen 35 06/26/24 14:00 06/26/24 14:00 06/26/24 16:00 Temperature Pulse Rate 117 H 117 H Respiratory Rate 20 Blood Pressure 133/78 Pulse Oximetry 100 97 Oxygen Delivery High Flow Therapy with Na Oxygen Flow Rate 30 Fraction of Inspired Oxygen 32 06/26/24 16:00 06/26/24 16:00 06/26/24 16:01 Temperature 37.6 C H Pulse Rate 115 H 107 H 125 H Respiratory Rate 23 H 24 H Blood Pressure 122/72 Pulse Oximetry 97 93 Oxygen Delivery High Flow Therapy with Na Oxygen Flow Rate 30 Fraction of Inspired Oxygen 32 06/26/24 18:00 06/26/24 18:00 06/26/24 20:00 Temperature Pulse Rate 114 H 114 H Respiratory Rate 24 H Blood Pressure 111/76 Pulse Oximetry 98 Oxygen Delivery BiPAP Oxygen Flow Rate Fraction of Inspired Oxygen 32 06/26/24 20:00 06/26/24 20:00 06/26/24 20:20 Temperature 37.4 C Pulse Rate 101 H 101 H 94 Respiratory Rate 20 23 H Blood Pressure 105/80 Pulse Oximetry 99 98 Oxygen Delivery BiPAP Oxygen Flow Rate Fraction of Inspired Oxygen 06/26/24 20:20 06/26/24 20:39 06/26/24 22:00 Temperature Pulse Rate 94 108 H 99 Respiratory Rate 23 H 27 H Blood Pressure Pulse Oximetry Oxygen Delivery Oxygen Flow Rate Fraction of Inspired Oxygen 06/26/24 22:00 06/26/24 22:55 06/27/24 00:00 Temperature Pulse Rate 99 101 H Respiratory Rate 24 H 24 H Blood Pressure 100/72 Pulse Oximetry 98 100 Oxygen Delivery BiPAP BiPAP Oxygen Flow Rate Fraction of Inspired Oxygen 32 06/27/24 00:00 06/27/24 00:00 06/27/24 02:00 Temperature 37.2 C Pulse Rate 78 78 102 H Respiratory Rate 27 H 28 H Blood Pressure 106/72 102/76 Pulse Oximetry 99 98 Oxygen Delivery Oxygen Flow Rate Fraction of Inspired Oxygen 06/27/24 02:00 06/27/24 02:16 06/27/24 02:16 Temperature Pulse Rate 102 H 76 76 Respiratory Rate 23 H 23 H Blood Pressure Pulse Oximetry 99 Oxygen Delivery BiPAP Oxygen Flow Rate Fraction of Inspired Oxygen 06/27/24 04:00 06/27/24 04:00 06/27/24 04:00 Temperature 37.2 C Pulse Rate 90 90 Respiratory Rate 17 Blood Pressure 113/72 Pulse Oximetry 96 Oxygen Delivery BiPAP Oxygen Flow Rate Fraction of Inspired Oxygen 32 06/27/24 04:44 06/27/24 06:00 06/27/24 06:00 Temperature Pulse Rate 72 77 77 Respiratory Rate 17 25 H Blood Pressure 117/75 Pulse Oximetry 99 100 Oxygen Delivery BiPAP Oxygen Flow Rate Fraction of Inspired Oxygen 06/27/24 08:00 06/27/24 08:13 06/27/24 08:13 Temperature 36.9 C Pulse Rate 91 81 Respiratory Rate 19 20 Blood Pressure 132/94 H Pulse Oximetry 99 98 98 Oxygen Delivery BiPAP BiPAP Oxygen Flow Rate Fraction of Inspired Oxygen 32 06/27/24 08:13 06/27/24 08:43 Temperature Pulse Rate 81 Respiratory Rate 20 Blood Pressure Pulse Oximetry 99 Oxygen Delivery High Flow Therapy with Na Oxygen Flow Rate 30 Fraction of Inspired Oxygen 32 Intake/Output Intake/Output: Intake & Output 06/24/24 06/25/24 06/26/24 06/27/24 23:59 23:59 23:59 23:59 Intake Total 3800.0 1870.0 2100 Output Total 600 850 775 350 Balance 3200.0 1020.0 1325 -350 Meds/Results Medications: Active Medications Generic Name Dose Route Start Last Admin Trade Name Freq PRN Reason Stop Dose Admin Acetaminophen 650 mg 06/24/24 10:52 Acetaminophen 325 Mg Tablet PO Q4H PRN Mild Pain (1-3) or Fever Budesonide 0.5 mg 06/27/24 08:00 06/27/24 08:08 Budesonide Respule Neb 0.5 Mg/2 Ml Amp NEBULIZE 0.5 mg Q12HRT MAX Administration Dextrose 12.5 gm 06/24/24 12:14 Dextrose 50% 25 Gm/50 Ml Syringe IV PUSH PRN PRN Hypoglycemia Protocol Enoxaparin Sodium 40 mg 06/25/24 09:00 06/27/24 08:14 Enoxaparin 40 Mg/0.4 Ml Syringe SUB-Q 40 mg DAILY MAX Administration Glucagon 1 mg 06/24/24 12:14 Glucagon For Inj 1 Mg Vial IM PRN PRN Hypoglycemia Protocol Glucose 15 gm 06/24/24 12:14 Glucose Oral Gel 15 Gm Of Glucse In 37.5 Gm Tube PO PRN PRN Hypoglycemia Protocol Doxycycline Hyclate 100 mg in 100 mls @ 100 mls/hr 06/24/24 19:00 06/27/24 08:13 Vibramycin 100 Mg/Ns 100 Ml IVPB 100 mls/hr Q12H MAX Administration Lactated Ringer's 1,000 mls @ 50 mls/hr 06/24/24 10:55 06/26/24 23:39 Lr - Lactated Ringers Iv IV CONT Not Given .Q20H MAX Dextrose 1,000 mls @ 100 mls/hr 06/24/24 12:14 Dextrose 5% 1,000 Ml IVPB PRN PRN Hypoglycemia Protocol Ceftriaxone Sodium 2 gm in 100 mls @ 200 mls/hr 06/26/24 09:00 06/27/24 09:53 Rocephin 2 Gm/Ns 100 Ml IVPB 200 mls/hr DAILY MAX Administration Insulin Aspart 2 - 5 units 06/24/24 18:00 06/27/24 05:29 Insulin Aspart (*Bkc) 100 Units/Ml SUB-Q Not Given Q6HR MAX Protocol Ipratropium [place] 0.5 mg 06/26/24 20:00 06/27/24 08:08 Ipratropium Br 0.02% Inh Soln 0.5 Mg/2.5 Ml Vial INHALATION 0.5 mg Q6HRT MAX Administration Levalbuterol HCl 0.63 mg 06/25/24 20:00 06/27/24 08:08 Levalbuterol Neb 1.25 Mg/3 Ml INHALATION 0.63 mg Q6HRT MAX Administration Ondansetron HCl 4 mg 06/24/24 10:52 Ondansetron Inj 4 Mg/2 Ml Vial IV PUSH Q4H PRN Nausea Pantoprazole Sodium 40 mg 06/25/24 09:00 06/27/24 08:14 Pantoprazole Sodium Iv 40 Mg Vial IV PUSH 40 mg QAM MAX Administration Radiology Results: ITS Impressions Chest CTA 06/24/24 07:46 IMPRESSION: 1. 5.9 cm mass in left kidney suspicious for renal cell carcinoma. Abdomen CT without and with contrast is recommended. 2. No pulmonary embolus. Sensitivity is moderately decreased by motion artifact. 3. Mild pneumonia in right upper lobe and left lower lobe. 4. Severe emphysema. Head CT 06/24/24 12:02 IMPRESSION: 1. Normal brain. Chest X-Ray 06/27/24 06:23 Impression: COPD. Clear lungs. Labs Labs: Laboratory Results - last 24 hr 06/26/24 06/26/24 06/26/24 12:29 16:40 18:07 WBC RBC Hgb Hct MCV MCH MCHC RDW Plt Count MPV Immature Gran % (Auto) Neut % (Auto) Lymph % (Auto) [place] % (Auto) Eos % (Auto) Baso % (Auto) Lymph # (Auto) [place] # (Auto) Eos # (Auto) Baso # (Auto) Abs Immat Gran (auto) Absolute Neuts (auto) Absolute Nucleated RBC Nucleated RBC % Puncture Site ABG pH ABG pCO2 ABG pO2 ABG PO2/FiO2 Ratio ABG HCO3 ABG O2 Saturation ABG O2 Content ABG Base Excess A-a Gradient Oxyhemoglobin Total Hemoglobin O2 Delivery Device O2 Liters/Min FiO2 Sodium Potassium Chloride Carbon Dioxide Anion Gap BUN Creatinine Estim Creat Clear Calc Estimated GFR Glucose POC Capillary Glucose 172 H 252 H Calcium Phosphorus Magnesium Total Bilirubin AST ALT Alkaline Phosphatase Total Protein Albumin Influenza A (RT-PCR) Negative Influenza B (RT-PCR) Negative RSV (RT-PCR) Negative SARS-CoV-2 RNA (RT-PCR) Negative 06/26/24 06/27/24 06/27/24 23:34 04:25 04:34 WBC 14.6 H RBC 3.35 L Hgb 9.8 L Hct 32.4 L MCV 96.7 MCH 29.3 MCHC 30.2 L RDW 13.2 Plt Count 287 MPV 9.7 Immature Gran % (Auto) 12.1 H Neut % (Auto) 75.5 H Lymph % (Auto) 4.4 L [place] % (Auto) 7.1 Eos % (Auto) 0.0 Baso % (Auto) 0.9 Lymph # (Auto) 0.64 L [place] # (Auto) 1.0 H Eos # (Auto) 0.0 Baso # (Auto) 0.1 Abs Immat Gran (auto) 1.76 H Absolute Neuts (auto) 11.0 H Absolute Nucleated RBC 0.000 Nucleated RBC % 0.0 Puncture Site Right radial ABG pH 7.402 ABG pCO2 51.2 H ABG pO2 98.9 ABG PO2/FiO2 Ratio 3.09 ABG HCO3 31.1 H ABG O2 Saturation 97.4 ABG O2 Content 14.9 L ABG Base Excess 5.4 A-a Gradient 69.4 Oxyhemoglobin 97.3 Total Hemoglobin 10.8 L O2 Delivery Device Other device O2 Liters/Min Not Reportable FiO2 32 Sodium 142 Potassium 4.2 Chloride 107 Carbon Dioxide 37 H Anion Gap -2 L BUN 28 H Creatinine 0.90 Estim Creat Clear Calc 56 Estimated GFR > 60 Glucose 178 H POC Capillary Glucose 180 H Calcium 9.3 Phosphorus 2.5 Magnesium 2.9 H Total Bilirubin 0.3 AST 22 ALT 46 H Alkaline Phosphatase 116 Total Protein 6.0 L Albumin 3.1 L Influenza A (RT-PCR) Influenza B (RT-PCR) RSV (RT-PCR) SARS-CoV-2 RNA (RT-PCR)
--- NOTE | 2024-06-27 10:52 | PCRCNOTE ---
ARRANGING FOR HOME NIV UNIT. PACKET FAXED TO [facility].
--- NOTE | 2024-06-27 11:52 | PCFNICU ---
ICU Rounding Note: Pt current nutrition is Clear liquid. Nutrition recommendation: Advance diet to Full Liquid and add oral nutrition supplement Ensure Clear TID for additional 240 kcal and 8 g protein each Last recorded weight is 72.8 kg. Bowel Motility: +1 BM 06/27/24 Labs Reviewed: Hgb 9.8, Hct 32.4, Alb 3.1, BUN 28, Glu 178 Meds Noted: Vancomycin, doxycycline Skin: No skin issues noted Additional Notes: Pt was doing well on clear liquid diet and drinking 100% of Ensure Clear. Diet was able to be advanced to full liquid and Ensure Clear continued. Continue to advance diet as medically able Following daily in ICU rounds. Monitoring diet orders, intakes, weights, labs, medications, plan of care Follow up in 3 days.
[2024-06-27 12:27] LABS: Glucose Point of Care 252 mg/dl (65-105)
[2024-06-27] MEDS: INSULIN ASPART (*BKC) 100 UNITS/ML SUB-Q (12:36)
[2024-06-27] MEDS: LACTATED RINGERS 1,000 ML 50 ML IV CONT (15:05)
[2024-06-27 17:36] LABS: Glucose Point of Care 157 mg/dl (65-105)
--- NOTE | 2024-06-27 18:25 | P.CONONC_ITS ---
Assessment and Plan Assessment and plan (1) Left kidney mass: Code(s): N28.89 - Other specified disorders of kidney and ureter Status: Acute Plan Left kidney mass. Patient is a pleasant 58-year-old female with history of left-sided breast cancer diagnosed in 1997 status post lumpectomy without any chemotherapy and radiation therapy. She presented with hypoxia along with cough with greenish sputum and chills. CTA chest showed no evidence of pulmonary embolism. Mild pneumonia in the right upper lobe and left lower lobe. Severe emphysema and 5.9 cm mass in the left kidney suspicious for renal cell carcinoma. She has no previous history of kidney cancer. I will order CT scan abdomen and pelvis with and without contrast for further workup. I will check CA 15-3 and erythropoietin level. She was provided with my office information for follow-up. Based on the imaging studies she will need Urology consultation as well. I have answered all the questions to patient's satisfaction. HPI Data of Consult Date/Time: 06/27/24 18:25 Requesting Physician: Jeff Mcdaniels MD Primary Care Provider: [place] Consult Narrative Reason for consult: Renal mass Narrative: Terri Villafuerte is a 58 year old female Review of Systems 2 Review of Systems: This is the 58-year-old female with the history of left-sided breast cancer diagnosed in 1997 status post lumpectomy along with history of COPD, asthma and hypertension presented with shortness of breath. Patient was also dealing with flu-like symptoms of 1-2 weeks duration with cough and productive greenish sputum along with myalgias and cold sweats. She was found to be hypoxic she she on room air. CTA chest showed 5.9 cm left renal mass with no pulmonary embolism along with mild right upper lobe pneumonia and left lower lobe emphysema. She denies any history of previous kidney cancer. Denies any hematuria dysuria. No other new complaints. Constitutional: Constitutional: Reports as per HPI [facility] Past Medical History Medical History (Updated 06/24/24 @ 15:35 by Matt Mcdaniels MD) Breast cancer Asthma COPD (chronic obstructive pulmonary disease) Surgical History Surgical History (Updated 06/24/24 @ 15:35 by Matt Mcdaniels MD) H/O: hysterectomy History of lumpectomy Family History Family History (Updated 06/24/24 @ 15:35 by Matt Mcdaniels MD) Father Hypertension Mother Hypertension Social History Social History (Updated 06/24/24 @ 15:37 by Matt Mcdaniels MD) Social History: 25 pack year smoking hx. Quit smoking 7 years ago. No alcohol use. No drug use. Code status - full Surrogate decision maker - Smoking packs per day: 1 Smoking cigarettes per day: 20.0 Years smoked: 25 Smoking pack-years: 25.00 Smoking status: Former smoker Tobacco type: cigarettes and e-cigarettes/vaping Second hand tobacco smoke exposure: Yes Additional smoking assessment comments: still uses vape/e-cigarette Alcohol intake: unknown Substance use: never Substance use type: does not use Spiritual care concerns: No Meds Home Medications and Allergies Home Medications ?Medication ?Instructions ?Recorded ?Confirmed ?Type albuterol sulfate 90 mcg/actuation 1 inh inhalation Q4-6H PRN 06/24/24 06/24/24 History aerosol inhaler Shortness Of Breath Or Wheezing atorvastatin 20 mg tablet 20 mg PO DAILY 06/24/24 06/24/24 History budesonide 160 mcg-glycopyr 9 2 inh inhalation BID 06/24/24 06/24/24 History mcg-formot 4.8 mcg/actuation HFA inhaler (Breztri Aerosphere) cetirizine 10 mg tablet 10 mg PO DAILY 06/24/24 06/24/24 History lisinopril 20 mg tablet 20 mg PO DAILY 06/24/24 06/24/24 History Allergies Allergy/AdvReac Type Severity Reaction Status Date / Time No Known Drug Allergies Allergy Verified 06/25/24 07:38 Vital Signs Vital Signs - 24 hr 06/26/24 20:00 06/26/24 20:00 06/26/24 20:00 Temperature 37.4 C Pulse Rate 101 H 101 H Respiratory Rate 20 Blood Pressure 105/80 Pulse Oximetry 99 Oxygen Delivery BiPAP Oxygen Flow Rate Fraction of Inspired Oxygen 32 06/26/24 20:20 06/26/24 20:20 06/26/24 20:39 Temperature Pulse Rate 94 94 108 H Respiratory Rate 23 H 23 H 27 H Blood Pressure Pulse Oximetry 98 Oxygen Delivery BiPAP Oxygen Flow Rate Fraction of Inspired Oxygen 06/26/24 22:00 06/26/24 22:00 06/26/24 22:55 Temperature Pulse Rate 99 99 101 H Respiratory Rate 24 H 24 H Blood Pressure 100/72 Pulse Oximetry 98 100 Oxygen Delivery BiPAP Oxygen Flow Rate Fraction of Inspired Oxygen 06/27/24 00:00 06/27/24 00:00 06/27/24 00:00 Temperature 37.2 C Pulse Rate 78 78 Respiratory Rate 27 H Blood Pressure 106/72 Pulse Oximetry 99 Oxygen Delivery BiPAP Oxygen Flow Rate Fraction of Inspired Oxygen 32 06/27/24 02:00 06/27/24 02:00 06/27/24 02:16 Temperature Pulse Rate 102 H 102 H 76 Respiratory Rate 28 H 23 H Blood Pressure 102/76 Pulse Oximetry 98 99 Oxygen Delivery BiPAP Oxygen Flow Rate Fraction of Inspired Oxygen 06/27/24 02:16 06/27/24 04:00 06/27/24 04:00 Temperature 37.2 C Pulse Rate 76 90 90 Respiratory Rate 23 H 17 Blood Pressure 113/72 Pulse Oximetry 96 Oxygen Delivery Oxygen Flow Rate Fraction of Inspired Oxygen 06/27/24 04:00 06/27/24 04:44 06/27/24 06:00 Temperature Pulse Rate 72 77 Respiratory Rate 17 Blood Pressure Pulse Oximetry 99 Oxygen Delivery BiPAP BiPAP Oxygen Flow Rate Fraction of Inspired Oxygen 32 06/27/24 06:00 06/27/24 08:00 06/27/24 08:00 Temperature 36.9 C Pulse Rate 77 91 Respiratory Rate 25 H 19 Blood Pressure 117/75 132/94 H Pulse Oximetry 100 99 Oxygen Delivery BiPAP Oxygen Flow Rate Fraction of Inspired Oxygen 32 06/27/24 08:00 06/27/24 08:13 06/27/24 08:13 Temperature Pulse Rate 85 81 Respiratory Rate 20 Blood Pressure Pulse Oximetry 98 98 Oxygen Delivery BiPAP BiPAP Oxygen Flow Rate Fraction of Inspired Oxygen 32 06/27/24 08:13 06/27/24 08:43 06/27/24 10:00 Temperature Pulse Rate 81 110 H Respiratory Rate 20 28 H Blood Pressure 114/81 Pulse Oximetry 99 96 Oxygen Delivery High Flow Therapy with Na Oxygen Flow Rate 30 Fraction of Inspired Oxygen 32 06/27/24 10:00 06/27/24 10:53 06/27/24 12:00 Temperature Pulse Rate 110 H 109 H 104 H Respiratory Rate 24 H Blood Pressure Pulse Oximetry 97 Oxygen Delivery High Flow Therapy with Na Oxygen Flow Rate 40 Fraction of Inspired Oxygen 32 06/27/24 12:00 06/27/24 12:00 06/27/24 14:00 Temperature Pulse Rate 106 H 93 Respiratory Rate 27 H Blood Pressure 132/84 Pulse Oximetry 97 97 Oxygen Delivery High Flow Therapy with Na Oxygen Flow Rate 40 Fraction of Inspired Oxygen 06/27/24 14:00 06/27/24 14:06 06/27/24 14:06 Temperature Pulse Rate 93 92 92 Respiratory Rate 26 H 22 H 22 H Blood Pressure 111/73 Pulse Oximetry 98 99 Oxygen Delivery High Flow Therapy with Na Oxygen Flow Rate 40 Fraction of Inspired Oxygen 32 06/27/24 16:00 06/27/24 16:00 06/27/24 16:00 Temperature 36.9 C Pulse Rate 96 97 Respiratory Rate 24 H Blood Pressure 125/78 Pulse Oximetry 97 97 Oxygen Delivery High Flow Therapy with Na Oxygen Flow Rate 40 Fraction of Inspired Oxygen 06/27/24 18:03 Temperature Pulse Rate 108 H Respiratory Rate 28 H Blood Pressure Pulse Oximetry 98 Oxygen Delivery BiPAP Oxygen Flow Rate Fraction of Inspired Oxygen Exam 2 Narrative: Patient is awake and alert. Const: Nutritional Appearance: well nourished Resp: Other: Lungs are clear to auscultation bilaterally Cardio: Other: Regular rate rhythm no murmurs GI: Other: Soft nontender nondistended bowel sounds are positive Extrem: Other: No lower extremity edema Results Labs 06/27/24 04:25 06/27/24 04:25 Labs: Short CBC 06/27/24 Range/Units 04:25 WBC 14.6 H (4.5-10.0) K/mm3 Hgb 9.8 L (12.0-15.0) g/dL Hct 32.4 L (37.0-47.0) % Plt Count 287 (150-375) k/mm3 [facility] 06/27/24 04:25 Sodium 142 Potassium 4.2 Chloride 107 Carbon Dioxide 37 H BUN 28 H Creatinine 0.90 Glucose 178 H Calcium 9.3 Liver Function 06/27/24 Range/Units 04:25 Total Bilirubin 0.3 (0.2-1.3) mg/dL AST 22 (14-36) U/L ALT 46 H (6-35) U/L Alkaline Phosphatase 116 (38-126) U/L Albumin 3.1 L (3.5-5.1) g/dL
[2024-06-27 18:37] LABS: Pneumococcal Antigen Urine NOT DETECTED
[2024-06-27 22:18] LABS: Legionella pneumophila Ag Ur NOT DETECTED
[2024-06-28] VITALS (28 sets, daily range): BP systolic 105–148; BP diastolic 66–96; PULSE 73–120; RESP 14–29; TEMP 36.5–37.6; O2SAT 92–100
[2024-06-28 00:05] LABS: Glucose Point of Care 128 mg/dl (65-105)
[2024-06-28] MEDS: LEVALBUTEROL NEB 1.25 MG/3 ML 0.63 MG INHALATION ×4 (02:46→20:37)
[2024-06-28] MEDS: IPRATROPIUM BR 0.02% INH SOLN 0.5 MG/2.5 ML VIAL INHALATION ×4 (02:52→20:37)
[2024-06-28 04:55] LABS: Hematocrit 32.6 % (37.0-47.0); Hemoglobin 9.9 g/dL (12.0-15.0); Mean Corpuscular HGB Conc 30.4 g/dl (32-36); Mean Corpuscular Hemoglobin 29.7 pg (26-34); Mean Corpuscular Volume 97.9 fl (80-100); Mean Platelet Volume 9.5 fl (7.4-10.4); Platelet Count Result 274 k/mm3 (150-375); Red Blood Count 3.33 M/mm3 (4.2-5.4); Red Cell Distribution Width 13.3 % (11.5-14.5); White Blood Count 14.7 K/mm3 (4.5-10.0)
[2024-06-28 05:04] LABS: Alanine Aminotransferase 41 U/L (6-35); Albumin Level 2.9 g/dL (3.5-5.1); Alkaline Phosphatase 105 U/L (38-126); Anion Gap 0 mmol/L (4-12); Aspartate Amino Transferase 23 U/L (14-36); Bilirubin,Total 0.3 mg/dL (0.2-1.3); Blood Urea Nitrogen 30 mg/dL (7-17); Calcium 9.3 mg/dL (8.4-10.2); Carbon Dioxide 39 mmol/L (22-30); Chloride 107 mmol/L (98-107); Estimated CRCL calculation 54 ml/min; Estimated Glomerular Filt Rate > 60; Glucose 119 mg/dL (65-110); Magnesium 2.6 mg/dL (1.6-2.3); Potassium 3.7 mmol/L (3.4-5.0); Sodium 146 mmol/L (137-145)
[2024-06-28 05:08] LABS: Phosphorus 2.3 mg/dL (2.5-4.5)
[2024-06-28 05:38] LABS: Band Neutrophils Percent 4 % (0-6); Basophils Absolute Manual 0.14 K/mm3 (0.0-0.1); Basophils Percent Manual 1 % (0-1); Lymphocytes Absolute Manual 2.05 K/mm3 (1.1-4.5); Metamyelocytes Percent 3 %; Monocytes Absolute Manual 0.29 K/mm3 (0.1-0.90); Monocytes Percent Manual 2 % (3-9); Neutrophils Absolute Manual 11.76 K/mm3 (1.7-7.2); Neutrophils Percent Manual 76 % (46-73); Nucleated Red Blood Cells 1 %; Platelet Estimate Adequate (Adequate); Total Cells Counted 100
[2024-06-28 05:39] LABS: Giant Platelets Present; Hypochromasia 1+; Schistocytes None Seen
[2024-06-28 06:00] LABS: Alveolar/Arterial O2 Gradient 66.1 mmHg; Base Excess ABG 9.6 mEq/l (+/-2.0); Carboxyhemoglobin 0.3 % THb (0-2.0); Fractional Inspired Oxygen 32 %; HCO3 ABG 36.7 mEq/l (22.0-26.0); Methemoglobin ABG 0.3 %THb (0-1.5); Oxygen Content ABG 16.5 %vol (16.0-22.0); Oxygen Saturation ABG 96.5 % (95.0-100.0); Oxyhemoglobin 96.6 % THb (90.0-100.0); PO2 ABG 89.2 mmHg (80.0-100.0); PO2 FiO2 Ratio Arterial Blood 2.79 %; Reduced Hemoglobin 2.8 %THb (0-5.0); Total Hemoglobin 12.1 g/dL (12.0-18.0); pH ABG 7.388 (7.350-7.450)
[2024-06-28 06:03] LABS: Device OTHER DEVICE; Modified Allen's Test Pass; PCO2 ABG 62.3 mmHg (35.0-45.0); Site Drawn RIGHT RADIAL
[2024-06-28] MEDS: PANTOPRAZOLE SODIUM IV 40 MG VIAL IV PUSH (08:13)
[2024-06-28] MEDS: cefTRIAXone 2 GM/NS 100 ML 2 GM/100 ML BAG IVPB (08:14)
[2024-06-28] MEDS: ENOXAPARIN 40 MG/0.4 ML SYRINGE SUB-Q (08:14)
[2024-06-28] MEDS: DOXYCYCLINE 100 MG/NS 100 ML 100 MG/100 ML BAG IVPB ×2 (08:14→18:02)
[2024-06-28] MEDS: POTASSIUM PHOS/SODIUM PHOS 250 MG TABLET PO (08:17)
[2024-06-28] MEDS: BUDESONIDE RESPULE NEB 0.5 MG/2 ML AMP NEBULIZE ×2 (09:11→20:37)
--- NOTE | 2024-06-28 09:25 | WPDINTPN ---
Progress Note: A&P Assessment and Plan (1) Respiratory failure with hypoxia and hypercapnia: Code(s): J96.91 - Respiratory failure, unspecified with hypoxia; J96.92 - Respiratory failure, unspecified with hypercapnia Status: Acute Assessment and Plan: Acute respiratory failure secondary to pneumonia and COPD exacerbation CTA negative for PE -on admission patient was placed on BiPAP but repeat ABG was worse likely secondary to low tidal volumes and high FiO2 -currently on AVAPS, will alternate with possible Vapotherm -continue ceftriaxone, doxycycline for community-acquired pneumonia -06/27: discontinue vancomycin as MRSA nares is negative -continue bronchodilators -continue inhaled corticosteroid -appreciate pulmonology following the patient, IV steroids discontinued -COVID-19 and influenza swabs were negative -respiratory pathogen panel pending 06/25/2024: CTA chest IMPRESSION: 1. 5.9 cm mass in left kidney suspicious for renal cell carcinoma. Abdomen CT without and with contrast is recommended. 2. No pulmonary embolus. Sensitivity is moderately decreased by motion artifact. 3. Mild pneumonia in right upper lobe and left lower lobe. 4. Severe emphysema. (2) Sepsis: Code(s): A41.9 - Sepsis, unspecified organism Status: Acute Assessment and Plan: Sepsis secondary to community-acquired pneumonia Management of respiratory failure as above -06/25: Blood cultures growing Hemophilus influenzae at 1/2 bottles, sensitivities pending -06/25/2024: Sputum culture with no growth -urine Legionella and pneumococcal antigens pending -viral panel per pulmonology is pending -lactic acids are normal -antibiotics as above -hemodynamics are stable -DC IV fluids 06/25/2024: Echocardiogram Summary 1. The left ventricle is normal in size and systolic function. There is concentric left ventricular remodeling. The left ventricular ejection fraction is visually estimated to be 60-65%. 2. The right ventricle is not well visualized however the systolic function by tissue Doppler appears normal. 3. Technically difficult study with limited views. (3) COPD exacerbation: Code(s): J44.1 - Chronic obstructive pulmonary disease with (acute) exacerbation Status: Acute Assessment and Plan: Continue NIPPV, bronchodilators and antibiotics as above (4) PNA (pneumonia): Code(s): J18.9 - Pneumonia, unspecified organism Status: Acute Assessment and Plan: See above (5) Left kidney mass: Code(s): N28.89 - Other specified disorders of kidney and ureter Status: Acute Assessment and Plan: CT scan shows incidental 6 cm left kidney mass suspicious for renal cell carcinoma. Will order additional workup once patient is stabilized from respiratory standpoint -appreciate heme Onc evaluation and recommendation -CT pelvis with and without contrast has been ordered per Dr. Kelly -consulted Urology (6) Encephalopathy: Code(s): G93.40 - Encephalopathy, unspecified Status: Acute Assessment and Plan: Likely secondary to CO2 narcosis Management of respiratory failure as above Negative head CT Normal ammonia and TSH Improved (7) Elevated troponin: Code(s): R79.89 - Other specified abnormal findings of blood chemistry Status: Acute Assessment and Plan: No documented history of coronary disease. Patient had 1st troponin check which was mildly abnormal and repeat troponin was in normal range. Likely elevation secondary to respiratory failure and tachycardia EKG reviewed. Serial troponins negative Echo as above Monitor Plan DVT prophylaxis -Lovenox Stress ulcer prophylaxis -PPI Nutrition -full liquid diet, advanced as tolerated Code Status - Full Code Total Critical Care Time - [address] Fatima from pulmonology Discussed with patient and at bedside updated them with patient's condition and plan of care. Due to a high probability of clinically significant, life threatening deterioration, the patient required my highest level of preparedness to intervene emergently and I personally spent this critical care time directly and personally managing the patient. This critical care time included obtaining a history; examining the patient; pulse oximetry; ordering and review of studies; arranging urgent treatment with development of a management plan; evaluation of patient's response to treatment; frequent reassessment; and discussions with other providers. It was exclusive of separately billable procedures and treating other patients and teaching time. Please see Assessment and Plan section and the rest of the note for further information on patient assessment and treatment This dictation may have been done utilizing a voice recognition system. Attempts have been made to correct errors. However, there may be uncorrected grammatical, spelling, and recognitions errors present. Subjective Date/time seen: 06/28/24 09:25 Interval history: Reason for consult: Acute hypercapnic respiratory failure, COPD exacerbation, pneumonia, sepsis 06/28/2024: Patient seen and examined the ICU, is awake, alert, oriented. On AVAPS through the night. Currently on high-flow therapy. States she is feeling better denies any shortness of breath, chest pain, abdominal pain, nausea, vomiting. Appetite is improving. Afebrile, adequate urine output Review of Systems Review of Systems: All systems reviewed & are unremarkable except as noted in HPI and below Exam Narrative: General: Patient is awake, alert on nasal cannula, in no acute distress Lungs/Chest: Trachea central Clear BS B/L, improved air entry this morning, no wheezing Cardiac: Tachycardic. Normal S1 S2. No murmurs Circulation: Pedal pulses are intact and symmetrical. Abdomen: Normal bowel sounds. Obese. Soft. NT. ND. Extremities: No clubbing, cyanosis or edema. Warm : Arambula in place Neurologic: Alert awake, follows commands all 4 extremities. Alert oriented x3 PERRL Skin: No Rash Objective Data Vital Signs Vital Signs: Vital Signs - 24 hr 06/27/24 10:00 06/27/24 10:00 06/27/24 10:53 Temperature Pulse Rate 110 H 110 H 109 H Respiratory Rate 28 H 24 H Blood Pressure 114/81 Pulse Oximetry 96 97 Oxygen Delivery High Flow Therapy with Na Oxygen Flow Rate 40 Fraction of Inspired Oxygen 32 06/27/24 12:00 06/27/24 12:00 06/27/24 12:00 Temperature Pulse Rate 104 H 106 H Respiratory Rate 27 H Blood Pressure 132/84 Pulse Oximetry 97 97 Oxygen Delivery High Flow Therapy with Na Oxygen Flow Rate 40 Fraction of Inspired Oxygen 06/27/24 14:00 06/27/24 14:00 06/27/24 14:06 Temperature Pulse Rate 93 93 92 Respiratory Rate 26 H 22 H Blood Pressure 111/73 Pulse Oximetry 98 99 Oxygen Delivery High Flow Therapy with Na Oxygen Flow Rate 40 Fraction of Inspired Oxygen 32 06/27/24 14:06 06/27/24 16:00 06/27/24 16:00 Temperature 98.4 F Pulse Rate 92 96 Respiratory Rate 22 H 24 H Blood Pressure 125/78 Pulse Oximetry 97 97 Oxygen Delivery High Flow Therapy with Na Oxygen Flow Rate 40 Fraction of Inspired Oxygen 06/27/24 16:00 06/27/24 18:00 06/27/24 18:00 Temperature Pulse Rate 97 94 94 Respiratory Rate 23 H Blood Pressure 135/87 Pulse Oximetry 100 Oxygen Delivery Oxygen Flow Rate Fraction of Inspired Oxygen 06/27/24 18:03 06/27/24 20:00 06/27/24 20:00 Temperature 98.5 F Pulse Rate 108 H 101 H Respiratory Rate 28 H 23 H Blood Pressure 137/86 Pulse Oximetry 98 99 Oxygen Delivery BiPAP BiPAP Oxygen Flow Rate Fraction of Inspired Oxygen 32 06/27/24 20:00 06/27/24 21:03 06/27/24 21:06 Temperature Pulse Rate 72 93 92 Respiratory Rate 22 H 25 H Blood Pressure Pulse Oximetry 98 Oxygen Delivery BiPAP Oxygen Flow Rate Fraction of Inspired Oxygen 06/27/24 22:00 06/27/24 22:00 06/28/24 00:00 Temperature 99.7 F H Pulse Rate 108 H 108 H 99 Respiratory Rate 22 H 24 H Blood Pressure 128/79 141/96 H Pulse Oximetry 99 98 Oxygen Delivery Oxygen Flow Rate Fraction of Inspired Oxygen 06/28/24 00:00 06/28/24 00:00 06/28/24 01:00 Temperature Pulse Rate 103 H 78 Respiratory Rate 23 H Blood Pressure Pulse Oximetry 98 Oxygen Delivery BiPAP BiPAP Oxygen Flow Rate Fraction of Inspired Oxygen 32 06/28/24 02:00 06/28/24 02:00 06/28/24 02:53 Temperature Pulse Rate 74 74 78 Respiratory Rate 21 H 22 H Blood Pressure 115/77 Pulse Oximetry 99 Oxygen Delivery Oxygen Flow Rate Fraction of Inspired Oxygen 06/28/24 04:00 06/28/24 04:00 06/28/24 04:00 Temperature 99.3 F Pulse Rate 98 74 Respiratory Rate 14 Blood Pressure 105/66 Pulse Oximetry 99 Oxygen Delivery BiPAP Oxygen Flow Rate Fraction of Inspired Oxygen 32 06/28/24 05:20 06/28/24 06:00 06/28/24 06:00 Temperature Pulse Rate 98 73 73 Respiratory Rate 25 H 17 Blood Pressure 121/75 Pulse Oximetry 98 99 Oxygen Delivery BiPAP Oxygen Flow Rate Fraction of Inspired Oxygen 06/28/24 08:00 06/28/24 08:00 06/28/24 09:00 Temperature 98.2 F Pulse Rate 76 Respiratory Rate 22 H Blood Pressure 136/81 Pulse Oximetry 95 100 99 Oxygen Delivery High Flow Therapy with Na High Flow Therapy with Na Oxygen Flow Rate 40 40 Fraction of Inspired Oxygen 32 06/28/24 09:11 06/28/24 09:11 Temperature Pulse Rate 106 H Respiratory Rate 20 Blood Pressure Pulse Oximetry 97 Oxygen Delivery Nasal Cannula Oxygen Flow Rate 4 Fraction of Inspired Oxygen 36 Intake/Output Intake/Output: Intake & Output 06/25/24 06/26/24 06/27/24 06/28/24 23:59 23:59 23:59 23:59 Intake Total 1870.0 2100 1780 Output Total 850 775 850 230 Balance 1020.0 1325 930 -230 Meds/Results Medications: Active Medications Generic Name Dose Route Start Last Admin Trade Name Freq PRN Reason Stop Dose Admin Acetaminophen 650 mg 06/24/24 10:52 Acetaminophen 325 Mg Tablet PO Q4H PRN Mild Pain (1-3) or Fever Budesonide 0.5 mg 06/27/24 08:00 06/28/24 09:11 Budesonide Respule Neb 0.5 Mg/2 Ml Amp NEBULIZE 0.5 mg Q12HRT MAX Administration Dextrose 12.5 gm 06/24/24 12:14 Dextrose 50% 25 Gm/50 Ml Syringe IV PUSH PRN PRN Hypoglycemia Protocol Enoxaparin Sodium 40 mg 06/25/24 09:00 06/28/24 08:14 Enoxaparin 40 Mg/0.4 Ml Syringe SUB-Q 40 mg DAILY MAX Administration Glucagon 1 mg 06/24/24 12:14 Glucagon For Inj 1 Mg Vial IM PRN PRN Hypoglycemia Protocol Glucose 15 gm 06/24/24 12:14 Glucose Oral Gel 15 Gm Of Glucse In 37.5 Gm Tube PO PRN PRN Hypoglycemia Protocol Doxycycline Hyclate 100 mg in 100 mls @ 100 mls/hr 06/24/24 19:00 06/28/24 08:14 Vibramycin 100 Mg/Ns 100 Ml IVPB 06/28/24 19:59 100 mls/hr Q12H MAX Administration Dextrose 1,000 mls @ 100 mls/hr 06/24/24 12:14 Dextrose 5% 1,000 Ml IVPB PRN PRN Hypoglycemia Protocol Ceftriaxone Sodium 2 gm in 100 mls @ 200 mls/hr 06/26/24 09:00 06/28/24 08:14 Rocephin 2 Gm/Ns 100 Ml IVPB 200 mls/hr DAILY MAX Administration Insulin Aspart 2 - 5 units 06/24/24 18:00 06/28/24 05:14 Insulin Aspart (*Bkc) 100 Units/Ml SUB-Q Not Given Q6HR MAX Protocol Ipratropium Thompson 0.5 mg 06/26/24 20:00 06/28/24 09:11 Ipratropium Br 0.02% Inh Soln 0.5 Mg/2.5 Ml Vial INHALATION 0.5 mg Q6HRT MAX Administration Levalbuterol HCl 0.63 mg 06/25/24 20:00 06/28/24 09:11 Levalbuterol Neb 1.25 Mg/3 Ml INHALATION 0.63 mg Q6HRT MAX Administration Ondansetron HCl 4 mg 06/24/24 10:52 Ondansetron Inj 4 Mg/2 Ml Vial IV PUSH Q4H PRN Nausea Pantoprazole Sodium 40 mg 06/25/24 09:00 06/28/24 08:13 Pantoprazole Sodium Iv 40 Mg Vial IV PUSH 40 mg QAM MAX Administration Radiology Results: ITS Impressions Chest CTA 06/24/24 07:46 IMPRESSION: 1. 5.9 cm mass in left kidney suspicious for renal cell carcinoma. Abdomen CT without and with contrast is recommended. 2. No pulmonary embolus. Sensitivity is moderately decreased by motion artifact. 3. Mild pneumonia in right upper lobe and left lower lobe. 4. Severe emphysema. Head CT 06/24/24 12:02 IMPRESSION: 1. Normal brain. Chest X-Ray 06/28/24 06:46 Impression: Clear lungs. COPD pattern. Labs Labs: Laboratory Results - last 24 hr 06/24/24 06/27/24 06/27/24 11:26 12:21 17:34 WBC RBC Hgb Hct MCV MCH MCHC RDW Plt Count MPV Immature Gran % (Auto) Neut % (Auto) Lymph % (Auto) [place] % (Auto) Eos % (Auto) Baso % (Auto) Lymph # (Auto) [place] # (Auto) Eos # (Auto) Baso # (Auto) Abs Immat Gran (auto) Absolute Neuts (auto) Absolute Nucleated RBC Total Counted Neutrophils % (Manual) Band Neutrophils % Lymphocytes % (Manual) Monocytes % (Manual) Basophils % (Manual) Metamyelocytes % Nucleated RBC % Abs Neuts (Manual) Abs Lymphs (Manual) Abs Monocytes (Manual) Abs Basophils (Manual) Nucleated RBCs Platelet Estimate Giant Platelets Hypochromasia Schistocytes Puncture Site ABG pH ABG pCO2 ABG pO2 ABG PO2/FiO2 Ratio ABG HCO3 ABG O2 Saturation ABG O2 Content ABG Base Excess A-a Gradient Oxyhemoglobin Carboxyhemoglobin Methemoglobin Reduced Hemoglobin Total Hemoglobin O2 Delivery Device O2 Liters/Min FiO2 Sodium Potassium Chloride Carbon Dioxide Anion Gap BUN Creatinine Estim Creat Clear Calc Estimated GFR Glucose POC Capillary Glucose 252 H 157 H Calcium Phosphorus Magnesium Total Bilirubin AST ALT Alkaline Phosphatase Total Protein Albumin Ur L.pneumophila Ag Not detected Urine Pneumococcal Ag Not detected 06/28/24 06/28/24 06/28/24 00:00 04:24 05:19 WBC 14.7 H RBC 3.33 L Hgb 9.9 L Hct 32.6 L MCV 97.9 MCH 29.7 MCHC 30.4 L RDW 13.3 Plt Count 274 MPV 9.5 Immature Gran % (Auto) Hairspring I Inspector Neut % (Auto) Hairspring I Inspector Lymph % (Auto) Hairspring I Inspector [place] % (Auto) Hairspring I Inspector Eos % (Auto) Hairspring I Inspector Baso % (Auto) Hairspring I Inspector Lymph # (Auto) Hairspring I Inspector [place] # (Auto) Hairspring I Inspector Eos # (Auto) Hairspring I Inspector Baso # (Auto) Hairspring I Inspector Abs Immat Gran (auto) Hairspring I Inspector Absolute Neuts (auto) Hairspring I Inspector Absolute Nucleated RBC Hairspring I Inspector Total Counted 100 Neutrophils % (Manual) 76 H Band Neutrophils % 4 Lymphocytes % (Manual) 14.0 L Monocytes % (Manual) 2 L Basophils % (Manual) 1 Metamyelocytes % 3 Nucleated RBC % Hairspring I Inspector Abs Neuts (Manual) 11.76 H Abs Lymphs (Manual) 2.05 Abs Monocytes (Manual) 0.29 Abs Basophils (Manual) 0.14 H Nucleated RBCs 1 Platelet Estimate Adequate Giant Platelets Present Hypochromasia 1+ Schistocytes None seen Puncture Site Right radial ABG pH 7.388 ABG pCO2 62.3 H* ABG pO2 89.2 ABG PO2/FiO2 Ratio 2.79 ABG HCO3 36.7 H ABG O2 Saturation 96.5 ABG O2 Content 16.5 ABG Base Excess 9.6 A-a Gradient 66.1 Oxyhemoglobin 96.6 Carboxyhemoglobin 0.3 Methemoglobin 0.3 Reduced Hemoglobin 2.8 Total Hemoglobin 12.1 O2 Delivery Device Other device O2 Liters/Min Not Reportable FiO2 32 Sodium 146 H Potassium 3.7 Chloride 107 Carbon Dioxide 39 H Anion Gap 0 L BUN 30 H Creatinine 0.90 Estim Creat Clear Calc 54 Estimated GFR > 60 Glucose 119 H POC Capillary Glucose 128 H Calcium 9.3 Phosphorus 2.3 L Magnesium 2.6 H Total Bilirubin 0.3 AST 23 ALT 41 H Alkaline Phosphatase 105 Total Protein 6.0 L Albumin 2.9 L Ur L.pneumophila Ag Urine Pneumococcal Ag Quality VTE Prophylaxis VTE prophylaxis: pharmacologic ordered
--- NOTE | 2024-06-28 09:44 | P.PNPL_ITS ---
Progress Note: A&P Assessment and Plan (1) COPD exacerbation: Code(s): J44.1 - Chronic obstructive pulmonary disease with (acute) exacerbation Status: Acute Assessment and Plan: Patient has a history of COPD Thirty pack year tobacco use, quit in 2017, vaping E cigarettes since then,with PFTs from 06/28/2016 with severe obstruction, positive bronchodilator response, moderately decreased DLCO. CT scan of the chest dating back to 01/22/2017 with moderate emphysema. the patient presents on 06/24/2024 with acute on chronic hypercarbic respiratory failure with blood gas on BiPAP of 7.24/73/314. Her serum bicarb on admission was 33. Plan: Agree with treating patient for COPD exacerbation. I will decrease her IV Solu-Medrol from 60 mg q.6 hours to 20 mg q.6 hours. She is tachycardic and will continue levalbuterol 0.63 mg nebs q.6 hours. I will add ipratropium 0.5 mg nebs q.6 hours. I will repeat COVID, RSV, influenza swab. I will send a respiratory pathogen panel to assess for 21 different respiratory viruses. I will send a mycoplasma IgM. At this time would continue ceftriaxone and doxycycline both day 3. 06/27/2024: Patient wore the noninvasive ventilator most of the day yesterday but was off for a few hours on Airvo yesterday afternoon. Overall she feels that she is a little better. She has a dry cough and no wheezing. Currently patient is on AVAPS 32% with saturations 98%. Her white blood cell count is 14.6, creatinine is 0.9. Chest x-ray today shows no consolidations, pleural effusions. Plan: I have discontinued her Solu-Medrol. Will continue levalbuterol 0.63 and ipratropium 0.5 mg nebs q.6 hours. Repeat COVID RSV influenza swab negative. Respiratory pathogen panel, mycoplasma IgM, urine Legionella, urine pneumococcal pending. Continue ceftriaxone for Haemophilus influenzae with beta lactamase in the blood and doxycycline both day 4. Patient can use noninvasive on a p.r.n. basis with goal saturations 90-94% if she is off with Airvo or high- flow nasal cannula as tolerated. 06/28/24: patient wore the hospital noninvasive ventilator with the AVAPS settings and said the mask was heavy but she did get some sleep. When I entered the room she was on Vapotherm 40 L 32% FiO2 with saturations 95% and we switched her 4 L nasal cannula and her saturations were 94%. She had a temperature yesterday to 37.6. Patient states she is breathing 30% back to her normal. Dry cough persists. No wheezing. White blood cell count 14.7, creatinine 0.9. ABG on the AVAPS setting 7.39/62/90. Chest x-ray was no focal consolidations. Repeat COVID, influenza, RSV RT PCR studies negative. Plan: Continue levalbuterol 0.63 and ipratropium 0.5 mg nebs q.6 hours. Continue ceftriaxone and doxycycline both day 5. Noninvasive ventilator p.r.n. during the day and she should wear this when she sleeps. Goal saturation 90-94 titer oxygen accordingly. Discussed with Dr. Macedo. Will follow with you. (2) Respiratory failure with hypoxia and hypercapnia: Code(s): J96.91 - Respiratory failure, unspecified with hypoxia; J96.92 - Respiratory failure, unspecified with hypercapnia Status: Acute Assessment and Plan: The patient presents on 06/24/2024 with acute on chronic hypercarbic respiratory failure with blood gas on BiPAP of 7.24/73/314. Her serum bicarb on admission was 33. The patient has chronic hypercarbic respiratory failure from COPD. She would benefit from noninvasive ventilation to prevent further deterioration and subsequent hospitalizations. Patient cannot tolerate BiPAP due to the high pressures. I will initiate noninvasive ventilation with the AVAPS mode. 06/26/2024: Currently the patient is on BiPAP rate of 16 pressures 20/8 50% FiO2 with saturations 100%. The patient states that she is breathing better than when she arrived. The patient states that she cannot tolerate the BiPAP pressures. Her white blood cell count is 13.6, creatinine is 0.8. Blood gas is 7.34/57/99 on these settings. I changed the patient to the AVAPS mode and adjust the settings to comfort resulting in a rate of 14, tidal volume 500, EPAP 5, minimal inspiratory pressure 6, maximal inspiratory pressure 25, inspiratory time 1.0, rise of 3 and 32% FiO2. Plan: I will obtain ABG in the morning prior to removal of the noninvasive ventilation with the AVAPS. 06/27/24: She slept with the noninvasive ventilator in the AVAPS settings as above and did well and said that she did sleep last night. ABG prior to removal of 7.40/51/99. Plan: Current noninvasive ventilator settings provide adequate ventilation. Once the patient oxygenation has stabilized will perform overnight oximetry on these settings. I have spoken to the senior marketing coordinator and will initiate the process for a home noninvasive ventilator. 06/28/24: patient wore the hospital noninvasive ventilator with the AVAPS settings and said the mask was heavy but she did get some sleep. ABG on the AVAPS setting 7.39/62/90. Plan: We have initiated home noninvasive ventilation through the [employer] via [employer]. She should wear the noninvasive ventilator at night when she sleeps with 32% FiO2. Will assess oxygen needs when she is clinically stable. Will set up home ventilator in the hospital if possible. Subjective Date/time seen: 06/28/24 09:44 Interval history: 06/26/2024: This is a new pulmonary consult for COPD with hypercarbic respiratory failure. 58-year-old with a history of severe COPD, asthma, hypertension and current vaping. Patient is currently on BiPAP in the ICU. Family is in the room and patient had 2 weeks shortness of breath, fever, cough and presented to the emergency room on 06/24/2024 with room air sats by EMS 61%. she had bilateral wheezing, white blood cell count 11.6, eosinophils 0%. Creatinine 1.0, MRSA swab negative, COVID, influenza, RSV swab negative, CT angiogram of the chest with no PE, very minimal infiltrate in the right upper lobe and left lower lobe and bilateral severe apical predominant panlobular emphysema. She was placed on CPAP And then placed on BiPAP. Blood gas on BiPAP 15/5 with pH of 7.24/73/314. Patient was given IV fluids, nebulizers, Solu-Medrol, ceftriaxone and doxycycline and admitted to the ICU. 06/26/2024: Currently the patient is on BiPAP rate of 16 pressures 20/8 50% FiO2 with saturations 100%. The patient states that she is breathing better than when she arrived. The patient states that she cannot tolerate the BiPAP pressures. Her white blood cell count is 13.6, creatinine is 0.8. Blood gas is 7.34/57/99 on these settings. I changed the patient to the AVAPS mode and adjust the settings to comfort resulting in a rate of 14, tidal volume 500, EPAP 5, minimal inspiratory pressure 6, maximal inspiratory pressure 25, inspiratory time 1.0, rise of 3 and 32% FiO2. 06/27/2024: Patient wore the noninvasive ventilator most of the day yesterday but was off for a few hours on Airvo yesterday afternoon. She slept with the noninvasive ventilator in the AVAPS settings as above and did well and said that she did sleep last night. ABG prior to removal of 7.40/51/99. Overall she feels that she is a little better. She has a dry cough and no wheezing. Currently patient is on AVAPS 32% with saturations 98%. Her white blood cell count is 14.6, creatinine is 0.9. Chest x-ray today shows no consolidations, pleural effusions. 06/28/24: patient wore the hospital noninvasive ventilator with the AVAPS settings and said the mask was heavy but she did get some sleep. When I entered the room she was on Vapotherm 40 L 32% FiO2 with saturations 95% and we switched her 4 L nasal cannula and her saturations were 94%. She had a temperature yesterday to 37.6. Patient states she is breathing 30% back to her normal. Dry cough persists. No wheezing. White blood cell count 14.7, creatinine 0.9. ABG on the AVAPS setting 7.39/62/90. Chest x-ray was no focal consolidations. DATA: 06/25/24: Echo Summary 1. The left ventricle is normal in size and systolic function. There is concentric left ventricular remodeling. The left ventricular ejection fraction is visually estimated to be 60-65%. 2. The right ventricle is not well visualized however the systolic function by tissue Doppler appears normal. 3. Technically difficult study with limited views. Right Ventricle The right ventricle is not well visualized however the systolic function by tissue Doppler appears normal. Left Atria The left atrium is normal size. Right Atria The right atrium is normal size. 06/24/24: EXAMINATION: CTA chest PE protocol DATE: 06/24/2024 07:39 INDICATION: Hypoxia. TECHNIQUE: Computed tomography angiography (CTA) of the chest was performed with 100 mL Omnipaque-350 intravenous contrast timed to evaluate the pulmonary arteries. Coronal maximum intensity projection 3D-reconstructions were created by the technologist. Automated exposure control and iterative reconstruction technique were employed. The dose-length product was 723.65 mGy-cm. COMPARISON: Chest CT 01/22/17 FINDINGS: There is severe emphysema. There are centrilobular nodules in left lower lobe and right upper lobe. No pleural effusion. The heart size is normal. No pericardial effusion. There is no pulmonary embolus. Calcifications in the liver and spleen are consistent with old granulomatous disease. Partially visualized is a 5.9 cm mass in left kidney. There are masses in the adrenal g lands measuring up to 13 mm on the left without change, likely adenomas. There is mild thoracic and lumbar spondylosis. IMPRESSION: 1. 5.9 cm mass in left kidney suspicious for renal cell carcinoma. Abdomen CT without and with contrast is recommended. 2. No pulmonary embolus. Sensitivity is moderately decreased by motion artifact. 3. Mild pneumonia in right upper lobe and left lower lobe. 4. Severe emphysema. 01/22/2017: EXAMINATION: CTA CHEST (PULMONARY ART) INDICATION: Shortness of breath. TECHNIQUE: Computed tomography angiography (CTA) of the chest was performed with 100 mL Omnipaque-350 intravenous contrast timed to evaluate the pulmonary arteries. Coronal maximum intensity projection 3D-reconstructions were created by the technologist. Automated exposure control and iterative reconstruction technique were employed. The dose-length product was 273 mGy-cm. COMPARISON: Chest single view 01/22/17 FINDINGS: There is moderate emphysema. There is mild scarring at the lung apices. There is mild atelectasis in lingula. A calcified left lung nodule and calcified left hilar lymph nodes are consistent with old granulomatous disease. No pleural effusion. The heart size is normal. No pericardial effusion. There is no pulmonary embolus. There is mild bilateral hilar and mediastinal lymphadenopathy. For example, a right hilar node measures 20 x 17 mm. There is a 2.2 cm mass in right adrenal gland measuring low attenuation, consistent with an adenoma. There is mild thoracic spondylosis. IMPRESSION: 1. No pulmonary embolus. 2. Moderate emphysema. 3. Mild bilateral hilar and mediastinal lymphadenopathy, likely reactive. 06/28/2016: PFT report FVC NORMAL, FEV1, FEV1% DECREASED. THERE IS ACUTE BRONCHODILATOR RESPONSE. LUNG VOLUMES ARE ALL INCREASED CONSISTENT WITH HYPERINFLATION AND AIR TRAPPING. RAW IS INCREASED. DLCO IS MODERATELY DECREASED WITH PARTIAL CORRECTION FOR VA. IMPRESSION: SEVERE OBSTRUCTIVE VENTILATORY DEFECT WITH ACUTE BRONCHODILATOR RESPONSE. MODERATELY DECREASED DLCO. ABG (RA) 7.41/ 43/ 72/ 27/ 87%/ CoHb 8.2 REVEALS MILD HYPOXEMIA WITH SIGNIFICANTLY DECREASED O2 CONTENT SECONDARY TO INCREASED CoHb. Review of Systems Constitutional: Constitutional: Reports no additional constitutional complaints Eyes: Eyes: Reports no additional eye complaints ENT: Reports system reviewed and no additional complaints, except as documented Cardiovascular: Cardiovascular: Reports no additional cardiovascular complaints Respiratory: Respiratory: Reports no additional respiratory complaints Gastrointestinal: Gastrointestinal: Reports no additional gastrointestinal c omplaints Musculoskeletal: Musculoskeletal: Reports no additional musculoskeletal complaints Neurologic: Reports system reviewed and no additional complaints, except as documented Psychiatric: Psychiatric: Reports no additional psychiatric complaints Endocrine: Endocrine: Reports no additional endocrine complaints Hematologic/Lymphatic: Hematologic/Lymphatic: Reports no additional hematologic/lymphatic complaints Allergic/Immunologic: Allergic/Immunologic: Reports no additional allergic/immunologic complaints Exam Const: General: cooperative, healthy appearing and comfortable Orienta tion/consciousness: oriented to person, oriented to place and oriented to time HENMT: Head: normal to inspection Ears: hearing grossly normal bilaterally Eyes: General: appearance normal, both eyes and all related structures Neck: Neck: normal visual inspection Chest: Chest palpation & inspection: normal inspection of the chest Resp: Effort & Inspection: normal respiratory effort and able to speak in complete sentences Auscultation: no crackles, no rales, no rhonchi, no wheezes and diminished lung sounds Cardio: Jugular venous distension: no JVD GI: Inspection: normal to inspection Skin: General skin exam: normal color Neuro: General: oriented to person, oriented to place and oriented to time Extrem: General: normal to inspection and no edema Psych: Appearance: grossly normal Objective Data Vital Signs Vital Signs: Vital Signs - 24 hr 06/27/24 10:00 06/27/24 10:00 06/27/24 10:53 Temperature Pulse Rate 110 H 110 H 109 H Respiratory Rate 28 H 24 H Blood Pressure 114/81 Pulse Oximetry 96 97 Oxygen Delivery High Flow Therapy with Na Oxygen Flow Rate 40 Fraction of Inspired Oxygen 32 06/27/24 12:00 06/27/24 12:00 06/27/24 12:00 Temperature Pulse Rate 104 H 106 H Respiratory Rate 27 H Blood Pressure 132/84 Pulse Oximetry 97 97 Oxygen Delivery High Flow Therapy with Na Oxygen Flow Rate 40 Fraction of Inspired Oxygen 06/27/24 14:00 06/27/24 14:00 06/27/24 14:06 Temperature Pulse Rate 93 93 92 Respiratory Rate 26 H 22 H Blood Pressure 111/73 Pulse Oximetry 98 99 Oxygen Delivery High Flow Therapy with Na Oxygen Flow Rate 40 Fraction of Inspired Oxygen 32 06/27/24 14:06 06/27/24 16:00 06/27/24 16:00 Temperature 36.9 C Pulse Rate 92 96 Respiratory Rate 22 H 24 H Blood Pressure 125/78 Pulse Oximetry 97 97 Oxygen Delivery High Flow Therapy with Na Oxygen Flow Rate 40 Fraction of Inspired Oxygen 06/27/24 16:00 06/27/24 18:00 06/27/24 18:00 Temperature Pulse Rate 97 94 94 Respiratory Rate 23 H Blood Pressure 135/87 Pulse Oximetry 100 Oxygen Delivery Oxygen Flow Rate Fraction of Inspired Oxygen 06/27/24 18:03 06/27/24 20:00 06/27/24 20:00 Temperature 36.9 C Pulse Rate 108 H 101 H Respiratory Rate 28 H 23 H Blood Pressure 137/86 Pulse Oximetry 98 99 Oxygen Delivery BiPAP BiPAP Oxygen Flow Rate Fraction of Inspired Oxygen 32 06/27/24 20:00 06/27/24 21:03 06/27/24 21:06 Temperature Pulse Rate 72 93 92 Respiratory Rate 22 H 25 H Blood Pressure Pulse Oximetry 98 Oxygen Delivery BiPAP Oxygen Flow Rate Fraction of Inspired Oxygen 06/27/24 22:00 06/27/24 22:00 06/28/24 00:00 Temperature 37.6 C H Pulse Rate 108 H 108 H 99 Respiratory Rate 22 H 24 H Blood Pressure 128/79 141/96 H Pulse Oximetry 99 98 Oxygen Delivery Oxygen Flow Rate Fraction of Inspired Oxygen 06/28/24 00:00 06/28/24 00:00 06/28/24 01:00 Temperature Pulse Rate 103 H 78 Respiratory Rate 23 H Blood Pressure Pulse Oximetry 98 Oxygen Delivery BiPAP BiPAP Oxygen Flow Rate Fraction of Inspired Oxygen 32 06/28/24 02:00 06/28/24 02:00 06/28/24 02:53 Temperature Pulse Rate 74 74 78 Respiratory Rate 21 H 22 H Blood Pressure 115/77 Pulse Oximetry 99 Oxygen Delivery Oxygen Flow Rate Fraction of Inspired Oxygen 06/28/24 04:00 06/28/24 04:00 06/28/24 04:00 Temperature 37.4 C Pulse Rate 98 74 Respiratory Rate 14 Blood Pressure 105/66 Pulse Oximetry 99 Oxygen Delivery BiPAP Oxygen Flow Rate Fraction of Inspired Oxygen 32 06/28/24 05:20 06/28/24 06:00 06/28/24 06:00 Temperature Pulse Rate 98 73 73 Respiratory Rate 25 H 17 Blood Pressure 121/75 Pulse Oximetry 98 99 Oxygen Delivery BiPAP Oxygen Flow Rate Fraction of Inspired Oxygen 06/28/24 08:00 06/28/24 08:00 06/28/24 08:00 Temperature 36.8 C Pulse Rate 76 81 Respiratory Rate 22 H Blood Pressure 136/81 Pulse Oximetry 95 100 Oxygen Delivery High Flow Therapy with Na Oxygen Flow Rate 40 Fraction of Inspired Oxygen 06/28/24 09:00 06/28/24 09:11 06/28/24 09:11 Temperature Pulse Rate 106 H Respiratory Rate 20 Blood Pressure Pulse Oximetry 99 97 Oxygen Delivery High Flow Therapy with Na Nasal Cannula Oxygen Flow Rate 40 4 Fraction of Inspired Oxygen 32 36 06/28/24 09:33 Temperature Pulse Rate 106 H Respiratory Rate 20 Blood Pressure Pulse Oximetry Oxygen Delivery Oxygen Flow Rate Fraction of Inspired Oxygen Intake/Output Intake/Output: Intake & Output 06/25/24 06/26/24 06/27/24 06/28/24 23:59 23:59 23:59 23:59 Intake Total 1870.0 2100 1780 Output Total 850 775 850 230 Balance 1020.0 1325 930 -230 Meds/Results Medications: Active Medications Generic Name Dose Route Start Last Admin Trade Name Freq PRN Reason Stop Dose Admin Acetaminophen 650 mg 06/24/24 10:52 Acetaminophen 325 Mg Tablet PO Q4H PRN Mild Pain (1-3) or Fever Budesonide 0.5 mg 06/27/24 08:00 06/28/24 09:11 Budesonide Respule Neb 0.5 Mg/2 Ml Amp NEBULIZE 0.5 mg Q12HRT MAX Administration Dextrose 12.5 gm 06/24/24 12:14 Dextrose 50% 25 Gm/50 Ml Syringe IV PUSH PRN PRN Hypoglycemia Protocol Enoxaparin Sodium 40 mg 06/25/24 09:00 06/28/24 08:14 Enoxaparin 40 Mg/0.4 Ml Syringe SUB-Q 40 mg DAILY MAX Administration Glucagon 1 mg 06/24/24 12:14 Glucagon For Inj 1 Mg Vial IM PRN PRN Hypoglycemia Protocol Glucose 15 gm 06/24/24 12:14 Glucose Oral Gel 15 Gm Of Glucse In 37.5 Gm Tube PO PRN PRN Hypoglycemia Protocol Doxycycline Hyclate 100 mg in 100 mls @ 100 mls/hr 06/24/24 19:00 06/28/24 08:14 Vibramycin 100 Mg/Ns 100 Ml IVPB 06/28/24 19:59 100 mls/hr Q12H MAX Administration Dextrose 1,000 mls @ 100 mls/hr 06/24/24 12:14 Dextrose 5% 1,000 Ml IVPB PRN PRN Hypoglycemia Protocol Ceftriaxone Sodium 2 gm in 100 mls @ 200 mls/hr 06/26/24 09:00 06/28/24 08:14 Rocephin 2 Gm/Ns 100 Ml IVPB 200 mls/hr DAILY MAX Administration Insulin Aspart 2 - 5 units 06/24/24 18:00 06/28/24 05:14 Insulin Aspart (*Bkc) 100 Units/Ml SUB-Q Not Given Q6HR MAX Protocol Ipratropium [place] 0.5 mg 06/26/24 20:00 06/28/24 09:11 Ipratropium Br 0.02% Inh Soln 0.5 Mg/2.5 Ml Vial INHALATION 0.5 mg Q6HRT MAX Administration Levalbuterol HCl 0.63 mg 06/25/24 20:00 06/28/24 09:11 Levalbuterol Neb 1.25 Mg/3 Ml INHALATION 0.63 mg Q6HRT MAX Administration Ondansetron HCl 4 mg 06/24/24 10:52 Ondansetron Inj 4 Mg/2 Ml Vial IV PUSH Q4H PRN Nausea Pantoprazole Sodium 40 mg 06/25/24 09:00 06/28/24 08:13 Pantoprazole Sodium Iv 40 Mg Vial IV PUSH 40 mg QAM MAX Administration Radiology Results: ITS Impressions Chest CTA 06/24/24 07:46 IMPRESSION: 1. 5.9 cm mass in left kidney suspicious for renal cell carcinoma. Abdomen CT without and with contrast is recommended. 2. No pulmonary embolus. Sensitivity is moderately decreased by motion artifact. 3. Mild pneumonia in right upper lobe and left lower lobe. 4. Severe emphysema. Head CT 06/24/24 12:02 IMPRESSION: 1. Normal brain. Chest X-Ray 06/28/24 06:46 Impression: Clear lungs. COPD pattern. Labs Labs: Laboratory Results - last 24 hr 06/24/24 06/27/24 06/27/24 11:26 12:21 17:34 WBC RBC Hgb Hct MCV MCH MCHC RDW Plt Count MPV Immature Gran % (Auto) Neut % (Auto) Lymph % (Auto) [place] % (Auto) Eos % (Auto) Baso % (Auto) Lymph # (Auto) [place] # (Auto) Eos # (Auto) Baso # (Auto) Abs Immat Gran (auto) Absolute Neuts (auto) Absolute Nucleated RBC Total Counted Neutrophils % (Manual) Band Neutrophils % Lymphocytes % (Manual) Monocytes % (Manual) Basophils % (Manual) Metamyelocytes % Nucleated RBC % Abs Neuts (Manual) Abs Lymphs (Manual) Abs Monocytes (Manual) Abs Basophils (Manual) Nucleated RBCs Platelet Estimate Giant Platelets Hypochromasia Schistocytes Puncture Site ABG pH ABG pCO2 ABG pO2 ABG PO2/FiO2 Ratio ABG HCO3 ABG O2 Saturation ABG O2 Content ABG Base Excess A-a Gradient Oxyhemoglobin Carboxyhemoglobin Methemoglobin Reduced Hemoglobin Total Hemoglobin O2 Delivery Device O2 Liters/Min FiO2 Sodium Potassium Chloride Carbon Dioxide Anion Gap BUN Creatinine Estim Creat Clear Calc Estimated GFR Glucose POC Capillary Glucose 252 H 157 H Calcium Phosphorus Magnesium Total Bilirubin AST ALT Alkaline Phosphatase Total Protein Albumin Ur L.pneumophila Ag Not detected Urine Pneumococcal Ag Not detected 06/28/24 06/28/24 06/28/24 00:00 04:24 05:19 WBC 14.7 H RBC 3.33 L Hgb 9.9 L Hct 32.6 L MCV 97.9 MCH 29.7 MCHC 30.4 L RDW 13.3 Plt Count 274 MPV 9.5 Immature Gran % (Auto) District Wildlife Manager Neut % (Auto) District Wildlife Manager Lymph % (Auto) District Wildlife Manager [place] % (Auto) District Wildlife Manager Eos % (Auto) District Wildlife Manager Baso % (Auto) District Wildlife Manager Lymph # (Auto) District Wildlife Manager [place] # (Auto) District Wildlife Manager Eos # (Auto) District Wildlife Manager Baso # (Auto) District Wildlife Manager Abs Immat Gran (auto) District Wildlife Manager Absolute Neuts (auto) District Wildlife Manager Absolute Nucleated RBC District Wildlife Manager Total Counted 100 Neutrophils % (Manual) 76 H Band Neutrophils % 4 Lymphocytes % (Manual) 14.0 L Monocytes % (Manual) 2 L Basophils % (Manual) 1 Metamyelocytes % 3 Nucleated RBC % District Wildlife Manager Abs Neuts (Manual) 11.76 H Abs Lymphs (Manual) 2.05 Abs Monocytes (Manual) 0.29 Abs Basophils (Manual) 0.14 H Nucleated RBCs 1 Platelet Estimate Adequate Giant Platelets Present Hypochromasia 1+ Schistocytes None seen Puncture Site Right radial ABG pH 7.388 ABG pCO2 62.3 H* ABG pO2 89.2 ABG PO2/FiO2 Ratio 2.79 ABG HCO3 36.7 H ABG O2 Saturation 96.5 ABG O2 Content 16.5 ABG Base Excess 9.6 A-a Gradient 66.1 Oxyhemoglobin 96.6 Carboxyhemoglobin 0.3 Methemoglobin 0.3 Reduced Hemoglobin 2.8 Total Hemoglobin 12.1 O2 Delivery Device Other device O2 Liters/Min Not Reportable FiO2 32 Sodium 146 H Potassium 3.7 Chloride 107 Carbon Dioxide 39 H Anion Gap 0 L BUN 30 H Creatinine 0.90 Estim Creat Clear Calc 54 Estimated GFR > 60 Glucose 119 H POC Capillary Glucose 128 H Calcium 9.3 Phosphorus 2.3 L Magnesium 2.6 H Total Bilirubin 0.3 AST 23 ALT 41 H Alkaline Phosphatase 105 Total Protein 6.0 L Albumin 2.9 L Ur L.pneumophila Ag Urine Pneumococcal Ag
--- NOTE | 2024-06-28 11:22 | WPDURCON ---
Assessment and Plan Assessment and plan (1) Left kidney mass: Code(s): N28.89 - Other specified disorders of kidney and ureter Status: Acute Plan 58yo female with incidental finding of 5.9 cm left renal mass on CTA chest, admitted for acute on chronic respiratory failure. Medical history significant for severe emphysema, COPD, and breast cancer treated with lumpectomy in 1997. Denies previous urological workup. Former smoker, continues to vape and use e-cigarettes. Denies urinary symptoms, UTIs, hematuria, kidney stones. She is completely asymptomatic. Brother with kidney disease, denies family history of malignancy. Renal function stable with creatinine 0.9. - CT AP WWO contrast completed today, radiology read is pending - Oncology co-consulted, planning on outpatient management - Given severity of acute on chronic respiratory disease, will plan on outpatient urology follow-up - Additional work-up pending CT findings Urology Consult Note HPI Date Seen: 06/28/24 Requesting Physician: Jeff Mcdaniels MD Primary Care Provider: [place] Consult Narrative Reason for consult: Left renal mass Narrative: Pleasant 58yo female admitted to the ICU at [facility] on 06/24/2024 with acute on chronic respiratory failure requiring BiPAP support. Medical history significant for severe emphysema, COPD, and breast cancer in 1997 treated with lumpectomy. Former smoker, continues to vape and use e-cigarettes. CTA chest revealed incidental finding of 5.9 cm left renal mass. Oncology consulted. CT abdomen and pelvis with and without contrast completed on 06/28/2024, radiology read pending. PERTINENT LABS: 06/28/2024 - WBC 14.7, hemoglobin 9.9, creatinine 0.9 PERTINENT IMAGIN06/24/2024 CTA Chest - Incidental finding of 5.9 cm left renal mass 06/28/2024 CT Abdomen and Pelvis with and without contrast - Radiology read pending Review of Systems Review of Systems: All systems reviewed & are unremarkable except as noted in HPI and below Genitourinary: Genitourinary: Denies hematuria, Denies dysuria, Denies flank pain and Denies urinary incontinence [facility], [facility] Past Medical History Medical History (Updated 06/24/24 @ 15:35 by Matt Mcdaniels MD) Breast cancer Asthma COPD (chronic obstructive pulmonary disease) Surgical History Surgical History (Updated 06/24/24 @ 15:35 by Matt Mcdaniels MD) H/O: hysterectomy History of lumpectomy Family History Family History (Updated 06/24/24 @ 15:35 by Matt Mcdaniels MD) Father Hypertension Mother Hypertension Social History Social History (Updated 06/24/24 @ 15:37 by Matt Mcdaniels MD) Social History: 25 pack year smoking hx. Quit smoking 7 years ago. No alcohol use. No drug use. Code status - full Surrogate decision maker - Smoking packs per day: 1 Smoking cigarettes per day: 20.0 Years smoked: 25 Smoking pack-years: 25.00 Smoking status: Former smoker Tobacco type: cigarettes and e-cigarettes/vaping Second hand tobacco smoke exposure: Yes Additional smoking assessment comments: still uses vape/e-cigarette Alcohol intake: unknown Substance use: never Substance use type: does not use Spiritual care concerns: No Meds Home Medications and Allergies Home Medications ?Medication ?Instructions ?Recorded ?Confirmed ?Type albuterol sulfate 90 mcg/actuation 1 inh inhalation Q4-6H PRN 06/24/24 06/24/24 History aerosol inhaler Shortness Of Breath Or Wheezing atorvastatin 20 mg tablet 20 mg PO DAILY 06/24/24 06/24/24 History budesonide 160 mcg-glycopyr 9 2 inh inhalation BID 06/24/24 06/24/24 History mcg-formot 4.8 mcg/actuation HFA inhaler (Breztri Aerosphere) cetirizine 10 mg tablet 10 mg PO DAILY 06/24/24 06/24/24 History lisinopril 20 mg tablet 20 mg PO DAILY 06/24/24 06/24/24 History Allergies Allergy/AdvReac Type Severity Reaction Status Date / Time No Known Drug Allergies Allergy Verified 06/25/24 07:38 Vital Signs Vital Signs - 24 hr 06/27/24 12:00 06/27/24 12:00 06/27/24 12:00 Temperature Pulse Rate 104 H 106 H Respiratory Rate 27 H Blood Pressure 132/84 Pulse Oximetry 97 97 Oxygen Delivery High Flow Therapy with Na Oxygen Flow Rate 40 Fraction of Inspired Oxygen 06/27/24 14:00 06/27/24 14:00 06/27/24 14:06 Temperature Pulse Rate 93 93 92 Respiratory Rate 26 H 22 H Blood Pressure 111/73 Pulse Oximetry 98 99 Oxygen Delivery High Flow Therapy with Na Oxygen Flow Rate 40 Fraction of Inspired Oxygen 32 06/27/24 14:06 06/27/24 16:00 06/27/24 16:00 Temperature 98.4 F Pulse Rate 92 96 Respiratory Rate 22 H 24 H Blood Pressure 125/78 Pulse Oximetry 97 97 Oxygen Delivery High Flow Therapy with Na Oxygen Flow Rate 40 Fraction of Inspired Oxygen 06/27/24 16:00 06/27/24 18:00 06/27/24 18:00 Temperature Pulse Rate 97 94 94 Respiratory Rate 23 H Blood Pressure 135/87 Pulse Oximetry 100 Oxygen Delivery Oxygen Flow Rate Fraction of Inspired Oxygen 06/27/24 18:03 06/27/24 20:00 06/27/24 20:00 Temperature 98.5 F Pulse Rate 108 H 101 H Respiratory Rate 28 H 23 H Blood Pressure 137/86 Pulse Oximetry 98 99 Oxygen Delivery BiPAP BiPAP Oxygen Flow Rate Fraction of Inspired Oxygen 32 06/27/24 20:00 06/27/24 21:03 06/27/24 21:06 Temperature Pulse Rate 72 93 92 Respiratory Rate 22 H 25 H Blood Pressure Pulse Oximetry 98 Oxygen Delivery BiPAP Oxygen Flow Rate Fraction of Inspired Oxygen 06/27/24 22:00 06/27/24 22:00 06/28/24 00:00 Temperature 99.7 F H Pulse Rate 108 H 108 H 99 Respiratory Rate 22 H 24 H Blood Pressure 128/79 141/96 H Pulse Oximetry 99 98 Oxygen Delivery Oxygen Flow Rate Fraction of Inspired Oxygen 06/28/24 00:00 06/28/24 00:00 06/28/24 01:00 Temperature Pulse Rate 103 H 78 Respiratory Rate 23 H Blood Pressure Pulse Oximetry 98 Oxygen Delivery BiPAP BiPAP Oxygen Flow Rate Fraction of Inspired Oxygen 32 06/28/24 02:00 06/28/24 02:00 06/28/24 02:53 Temperature Pulse Rate 74 74 78 Respiratory Rate 21 H 22 H Blood Pressure 115/77 Pulse Oximetry 99 Oxygen Delivery Oxygen Flow Rate Fraction of Inspired Oxygen 06/28/24 04:00 06/28/24 04:00 06/28/24 04:00 Temperature 99.3 F Pulse Rate 98 74 Respiratory Rate 14 Blood Pressure 105/66 Pulse Oximetry 99 Oxygen Delivery BiPAP Oxygen Flow Rate Fraction of Inspired Oxygen 32 06/28/24 05:20 06/28/24 06:00 06/28/24 06:00 Temperature Pulse Rate 98 73 73 Respiratory Rate 25 H 17 Blood Pressure 121/75 Pulse Oximetry 98 99 Oxygen Delivery BiPAP Oxygen Flow Rate Fraction of Inspired Oxygen 06/28/24 08:00 06/28/24 08:00 06/28/24 08:00 Temperature 98.2 F Pulse Rate 76 81 Respiratory Rate 22 H Blood Pressure 136/81 Pulse Oximetry 95 100 Oxygen Delivery High Flow Therapy with Na Oxygen Flow Rate 40 Fraction of Inspired Oxygen 06/28/24 09:00 06/28/24 09:11 06/28/24 09:11 Temperature Pulse Rate 106 H Respiratory Rate 20 Blood Pressure Pulse Oximetry 99 97 Oxygen Delivery High Flow Therapy with Na Nasal Cannula Oxygen Flow Rate 40 4 Fraction of Inspired Oxygen 32 36 06/28/24 09:33 06/28/24 10:00 06/28/24 10:00 Temperature Pulse Rate 106 H 90 90 Respiratory Rate 20 16 Blood Pressure 118/76 Pulse Oximetry 98 Oxygen Delivery Oxygen Flow Rate Fraction of Inspired Oxygen 06/28/24 10:21 06/28/24 10:33 Temperature Pulse Rate Respiratory Rate Blood Pressure Pulse Oximetry 97 97 Oxygen Delivery Nasal Cannula Nasal Cannula Oxygen Flow Rate 4 2 Fraction of Inspired Oxygen 36 28 Exam Const: General: comfortable and no acute distress HENMT: Face/Nose/Sinus: Normal nares present Eyes: General: appearance normal, both eyes and all related structures Resp: Effort & Inspection: normal respiratory effort : Bimanual exam- vagina & uterus: bladder normal to palpation Skin: General skin exam: normal color Neuro: Speech: normal speech Psych: Speech and movement: Normal speech and movement present Affect: normal affect Results Labs 06/28/24 04:24 06/28/24 04:24 Labs: Short CBC 06/28/24 Range/Units 04:24 WBC 14.7 H (4.5-10.0) K/mm3 Hgb 9.9 L (12.0-15.0) g/dL Hct 32.6 L (37.0-47.0) % Plt Count 274 (150-375) k/mm3 [facility] 06/28/24 04:24 Sodium 146 H Potassium 3.7 Chloride 107 Carbon Dioxide 39 H BUN 30 H Creatinine 0.90 Glucose 119 H Calcium 9.3 Liver Function 06/28/24 Range/Units 04:24 Total Bilirubin 0.3 (0.2-1.3) mg/dL AST 23 (14-36) U/L ALT 41 H (6-35) U/L Alkaline Phosphatase 105 (38-126) U/L Albumin 2.9 L (3.5-5.1) g/dL
[2024-06-28 11:40] LABS: Glucose Point of Care 126 mg/dl (65-105)
--- NOTE | 2024-06-28 11:50 | PCFNICU ---
ICU Rounding Note: Pt current nutrition is Regular with diet supplements. Last recorded weight is 79.6 kg, up from 75.7 kg on admit. Bowel Motility: +BM reported 06/27 Labs Reviewed: Mg 2.6, Glu 119, BUN 30, NA 146 Meds Noted: Rocephin Skin: WNL Additional Notes: Diet order has been upgraded to a regular diet. Intakes have been very minimal, she did have CT scan today. PO intake encouraged. Diet supplements continue of Ensure Clear TID (240 kcal and 8 gm protein) and Nutritional Ice Cream BID (300 kcal and 9 gm protein). Agree with diet orders. Following daily in ICU rounds. Monitoring diet orders, intakes, weights, labs, medications, plan of care Follow up in 3 days.
--- NOTE | 2024-06-28 15:17 | PCPTNOTE ---
Attempted PT evaluation, pt refused. Nursing aware. Will follow.
--- NOTE | 2024-06-28 16:21 | PC.NURSE ---
Attempted to titrate oxygen to room air. Patient O2 sat is 87%. Resumed 1L per nasal cannula.
--- NOTE | 2024-06-28 16:57 | PC.NURSE ---
Patient being transferred to [facility]. Report called to [place].
--- NOTE | 2024-06-28 17:18 | PC.NURSE ---
This patient, Terri Villafuerte, was received from [ICU-7 ] on 06/28/24 at 3588. Patient/family oriented to unit policies and routines. Report received from LINDSAY Hanley @ [phone]
[2024-06-29] VITALS (21 sets, daily range): BP systolic 105–151; BP diastolic 50–91; PULSE 79–122; RESP 16–24; TEMP 36.6–37.1; O2SAT 86–98
[2024-06-29] MEDS: LEVALBUTEROL NEB 1.25 MG/3 ML 0.63 MG INHALATION ×2 (03:10→07:22)
[2024-06-29] MEDS: IPRATROPIUM BR 0.02% INH SOLN 0.5 MG/2.5 ML VIAL INHALATION ×2 (03:10→07:22)
[2024-06-29 04:50] LABS: Basophils Absolute Auto 0.1 K/mm3 (0.0-0.1); Basophils Percent Auto 0.6 % (0.2-1.2); Eosinophils Absolute Auto 0.1 K/mm3 (0-0.3); Eosinophils Percent Auto 0.5 % (0-4.4); Hematocrit 33.1 % (37.0-47.0); Hemoglobin 10.3 g/dL (12.0-15.0); Immature Granulocyte Absolute 1.41 K/mm3 (0.00-0.031); Lymphocytes Percent Auto 10.6 % (18.3-44.2); Mean Corpuscular HGB Conc 31.1 g/dl (32-36); Mean Corpuscular Hemoglobin 29.9 pg (26-34); Mean Corpuscular Volume 95.9 fl (80-100); Mean Platelet Volume 9.4 fl (7.4-10.4); Monocytes Absolute Auto 0.8 K/mm3 (0.1-0.6); Monocytes Percent Auto 5.5 % (2.6-8.5); Neutrophils Absolute Auto 10.3 K/mm3 (1.3-6.7); Neutrophils Percent Auto 72.8 % (45.5-73.1); Platelet Count Result 254 k/mm3 (150-375); Red Blood Count 3.45 M/mm3 (4.2-5.4); Red Cell Distribution Width 13.2 % (11.5-14.5); White Blood Count 14.1 K/mm3 (4.5-10.0)
[2024-06-29 05:02] LABS: Alanine Aminotransferase 38 U/L (6-35); Albumin Level 2.8 g/dL (3.5-5.1); Alkaline Phosphatase 95 U/L (38-126); Anion Gap 0 mmol/L (4-12); Aspartate Amino Transferase 20 U/L (14-36); Bilirubin,Total 0.3 mg/dL (0.2-1.3); Blood Urea Nitrogen 22 mg/dL (7-17); Calcium 8.6 mg/dL (8.4-10.2); Carbon Dioxide 39 mmol/L (22-30); Chloride 104 mmol/L (98-107); Estimated CRCL calculation 72 ml/min; Estimated Glomerular Filt Rate > 60; Glucose 110 mg/dL (65-110); Magnesium 2.3 mg/dL (1.6-2.3); Potassium 3.5 mmol/L (3.4-5.0); Sodium 143 mmol/L (137-145)
[2024-06-29] MEDS: BUDESONIDE RESPULE NEB 0.5 MG/2 ML AMP NEBULIZE (07:22)
[2024-06-29 07:28] LABS: CA 15-3 14 U/mL (<32)
--- NOTE | 2024-06-29 08:11 | WPDUROPN2 ---
Progress Note: A&P Assessment and Plan (1) Left kidney mass: Code(s): N28.89 - Other specified disorders of kidney and ureter Status: Acute Assessment and Plan: 7 cm left renal mass which will require nephrectomy. Pulmonary status needs to be optimized 1st. In addition she has to adrenal lesions which are indeterminate. Will need to review films with radiologist and make decision regarding further studies versus biopsy to rule out metastatic disease if that is suspicious. Will need to make a decision whether she has a candid to be done here at [facility] versus referral to a tertiary care center Subjective Subjective Date/Time Seen: 06/29/24 08:11 Principal diagnosis: Left renal mass-7 cm Interval history: Terri is currently undergoing management of exacerbation of COPD. Denied any flank pain or hematuria. Objective Data Vital Signs Vital Signs: Vital Signs - 24 hr 06/28/24 09:00 06/28/24 09:11 06/28/24 09:11 Temperature Pulse Rate 106 H Respiratory Rate 20 Blood Pressure Pulse Oximetry 99 97 Oxygen Delivery High Flow Therapy with Na Nasal Cannula Oxygen Flow Rate 40 4 Fraction of Inspired Oxygen 32 36 06/28/24 09:33 06/28/24 10:00 06/28/24 10:00 Temperature Pulse Rate 106 H 90 90 Respiratory Rate 20 16 Blood Pressure 118/76 Pulse Oximetry 98 Oxygen Delivery Oxygen Flow Rate Fraction of Inspired Oxygen 06/28/24 10:21 06/28/24 10:33 06/28/24 12:00 Temperature Pulse Rate Respiratory Rate Blood Pressure Pulse Oximetry 97 97 96 Oxygen Delivery Nasal Cannula Nasal Cannula Nasal Cannula Oxygen Flow Rate 4 2 2 Fraction of Inspired Oxygen 36 28 06/28/24 12:00 06/28/24 12:00 06/28/24 12:45 Temperature 36.8 C Pulse Rate 104 H 104 H Respiratory Rate 29 H Blood Pressure 133/76 Pulse Oximetry 94 96 Oxygen Delivery Nasal Cannula Oxygen Flow Rate 1 Fraction of Inspired Oxygen 06/28/24 13:10 06/28/24 13:10 06/28/24 13:21 Temperature Pulse Rate 105 H Respiratory Rate 22 H Blood Pressure Pulse Oximetry 93 Oxygen Delivery Nasal Cannula Nasal Cannula Oxygen Flow Rate 1 1 Fraction of Inspired Oxygen 06/28/24 13:22 06/28/24 14:00 06/28/24 16:00 Temperature Pulse Rate 120 H 116 H Respiratory Rate 22 H Blood Pressure Pulse Oximetry 92 Oxygen Delivery Nasal Cannula Oxygen Flow Rate 1 Fraction of Inspired Oxygen 06/28/24 16:00 06/28/24 16:00 06/28/24 18:00 Temperature 36.5 C Pulse Rate 106 H 105 H 115 H Respiratory Rate 16 Blood Pressure 120/80 Pulse Oximetry 92 Oxygen Delivery Oxygen Flow Rate Fraction of Inspired Oxygen 06/28/24 20:00 06/28/24 20:00 06/28/24 20:12 Temperature 36.6 C Pulse Rate 95 100 Respiratory Rate 16 Blood Pressure 148/88 H Pulse Oximetry 95 95 Oxygen Delivery Nasal Cannula Oxygen Flow Rate 1 Fraction of Inspired Oxygen 06/28/24 20:46 06/28/24 20:48 06/28/24 20:53 Temperature Pulse Rate 94 94 Respiratory Rate 27 H 24 H Blood Pressure Pulse Oximetry 96 96 Oxygen Delivery BiPAP BiPAP Oxygen Flow Rate Fraction of Inspired Oxygen 28 06/28/24 22:00 06/28/24 23:48 06/29/24 00:00 Temperature Pulse Rate 95 85 Respiratory Rate Blood Pressure Pulse Oximetry 95 95 Oxygen Delivery BiPAP Oxygen Flow Rate Fraction of Inspired Oxygen 06/29/24 00:00 06/29/24 00:15 06/29/24 02:00 Temperature Pulse Rate 87 97 83 Respiratory Rate 24 H Blood Pressure Pulse Oximetry 95 Oxygen Delivery BiPAP Oxygen Flow Rate Fraction of Inspired Oxygen 06/29/24 03:10 06/29/24 03:20 06/29/24 04:00 Temperature Pulse Rate 97 98 Respiratory Rate 24 H 23 H Blood Pressure Pulse Oximetry 95 Oxygen Delivery BiPAP Oxygen Flow Rate Fraction of Inspired Oxygen 06/29/24 04:00 06/29/24 04:00 06/29/24 04:02 Temperature 36.9 C Pulse Rate 85 86 95 Respiratory Rate 20 23 H Blood Pressure 135/78 Pulse Oximetry 98 96 Oxygen Delivery BiPAP Oxygen Flow Rate Fraction of Inspired Oxygen 06/29/24 06:00 06/29/24 07:22 06/29/24 07:22 Temperature Pulse Rate 79 90 Respiratory Rate 22 H Blood Pressure Pulse Oximetry 92 Oxygen Delivery Nasal Cannula Oxygen Flow Rate 1 Fraction of Inspired Oxygen 06/29/24 07:46 Temperature Pulse Rate 110 H Respiratory Rate 22 H Blood Pressure Pulse Oximetry Oxygen Delivery Oxygen Flow Rate Fraction of Inspired Oxygen Intake/Output Intake/Output: Intake & Output 06/26/24 06/27/24 06/28/2406/29/24 23:59 23:59 23:59 23:59 Intake Total 2100 1780 1270 Output Total 775 850 980 800 Balance 1325 930 290 -800 Meds/Results Medications: Active Medications Generic Name Dose Route Start Last Admin Trade Name Freq PRN Reason Stop Dose Admin Acetaminophen 650 mg 06/24/24 10:52 Acetaminophen 325 Mg Tablet PO Q4H PRN Mild Pain (1-3) or Fever Budesonide 0.5 mg 06/27/24 08:00 06/29/24 07:22 Budesonide Respule Neb 0.5 Mg/2 Ml Amp NEBULIZE 0.5 mg Q12HRT MAX Administration Enoxaparin Sodium 40 mg 06/25/24 09:00 06/28/24 08:14 Enoxaparin 40 Mg/0.4 Ml Syringe SUB-Q 40 mg DAILY MAX Administration Ceftriaxone Sodium 2 gm in 100 mls @ 200 mls/hr 06/26/24 09:00 06/28/24 11:41 Rocephin 2 Gm/Ns 100 Ml IVPB Infused DAILY MAX Infusion Ipratropium [place] 0.5 mg 06/26/24 20:00 06/29/24 07:22 Ipratropium Br 0.02% Inh Soln 0.5 Mg/2.5 Ml Vial INHALATION 0.5 mg Q6HRT MAX Administration Levalbuterol HCl 0.63 mg 06/25/24 20:00 06/29/24 07:22 Levalbuterol Neb 1.25 Mg/3 Ml INHALATION 0.63 mg Q6HRT MAX Administration Ondansetron HCl 4 mg 06/24/24 10:52 Ondansetron Inj 4 Mg/2 Ml Vial IV PUSH Q4H PRN Nausea Pantoprazole Sodium 40 mg 06/25/24 09:00 06/28/24 08:13 Pantoprazole Sodium Iv 40 Mg Vial IV PUSH 40 mg QAM MAX Administration Radiology Results: ITS Impressions Chest CTA 06/24/24 07:46 IMPRESSION: 1. 5.9 cm mass in left kidney suspicious for renal cell carcinoma. Abdomen CT without and with contrast is recommended. 2. No pulmonary embolus. Sensitivity is moderately decreased by motion artifact. 3. Mild pneumonia in right upper lobe and left lower lobe. 4. Severe emphysema. Head CT 06/24/24 12:02 IMPRESSION: 1. Normal brain. Chest X-Ray 06/28/24 06:46 Impression: Clear lungs. COPD pattern. Abdomen/Pelvis CT 06/28/24 14:09 IMPRESSION: 1. 6.9 cm left renal mass consistent with renal cell carcinoma. 2. A pair of 1.3 cm left and right adrenal nodules which could represent adrenal adenomas or metastatic disease. Could consider further evaluation with MRI as clinically indicated. 3. Fibroid uterus. Labs Labs: Laboratory Results - last 24 hr 06/27/24 06/28/24 06/29/24 19:03 11:33 04:40 WBC 14.1 H RBC 3.45 L Hgb 10.3 L Hct 33.1 L MCV 95.9 MCH 29.9 MCHC 31.1 L RDW 13.2 Plt Count 254 MPV 9.4 Immature Gran % (Auto) 10.0 H Neut % (Auto) 72.8 Lymph % (Auto) 10.6 L [place] % (Auto) 5.5 Eos % (Auto) 0.5 Baso % (Auto) 0.6 Lymph # (Auto) 1.50 [place] # (Auto) 0.8 H Eos # (Auto) 0.1 Baso # (Auto) 0.1 Abs Immat Gran (auto) 1.41 H Absolute Neuts (auto) 10.3 H Absolute Nucleated RBC 0.000 Nucleated RBC % 0.0 Sodium 143 Potassium 3.5 Chloride 104 Carbon Dioxide 39 H Anion Gap 0 L BUN 22 H Creatinine 0.70 Estim Creat Clear Calc 72 Estimated GFR > 60 Glucose 110 POC Capillary Glucose 126 H Calcium 8.6 Magnesium 2.3 Total Bilirubin 0.3 AST 20 ALT 38 H Alkaline Phosphatase 95 Total Protein 5.0 L Albumin 2.8 L CA 15-3 Antigen 14
[2024-06-29] MEDS: PANTOPRAZOLE SODIUM IV 40 MG VIAL IV PUSH (09:15)
[2024-06-29] MEDS: cefTRIAXone 2 GM/NS 100 ML 2 GM/100 ML BAG IVPB (09:15)
[2024-06-29] MEDS: ENOXAPARIN 40 MG/0.4 ML SYRINGE SUB-Q (09:15)
--- NOTE | 2024-06-29 11:16 | PC.NURSE ---
This patient, Terri Villafuerte, was transferred to [[id number]] on 06/29/24 at 1117. Personal belongings sent with patient. Report given to [LINDSAY Rodriges @ [phone] ]. Appropriate documentation sent with patient. Family at beside and aware of transfer
--- NOTE | 2024-06-29 11:30 | PC.NURSE ---
This patient, Terri Villafuerte, was received from IMU on 06/29/24 at 1130. RN received report from [place] MONTOYA. Patient/family oriented to unit policies and routines
--- NOTE | 2024-06-29 11:41 | P.PNPL_ITS ---
Progress Note: A&P Assessment and Plan (1) COPD exacerbation: Code(s): J44.1 - Chronic obstructive pulmonary disease with (acute) exacerbation Status: Acute Assessment and Plan: Patient has a history of COPD Thirty pack year tobacco use, quit in 2017, vaping E cigarettes since then,with PFTs from 06/28/2016 with severe obstruction, positive bronchodilator response, moderately decreased DLCO. CT scan of the chest dating back to 01/22/2017 with moderate emphysema. the patient presents on 06/24/2024 with acute on chronic hypercarbic respiratory failure with blood gas on BiPAP of 7.24/73/314. Her serum bicarb on admission was 33. Plan: Agree with treating patient for COPD exacerbation. I will decrease her IV Solu-Medrol from 60 mg q.6 hours to 20 mg q.6 hours. She is tachycardic and will continue levalbuterol 0.63 mg nebs q.6 hours. I will add ipratropium 0.5 mg nebs q.6 hours. I will repeat COVID, RSV, influenza swab. I will send a respiratory pathogen panel to assess for 21 different respiratory viruses. I will send a mycoplasma IgM. At this time would continue ceftriaxone and doxycycline both day 3. 06/27/2024: Patient wore the noninvasive ventilator most of the day yesterday but was off for a few hours on Airvo yesterday afternoon. Overall she feels that she is a little better. She has a dry cough and no wheezing. Currently patient is on AVAPS 32% with saturations 98%. Her white blood cell count is 14.6, creatinine is 0.9. Chest x-ray today shows no consolidations, pleural effusions. Plan: I have discontinued her Solu-Medrol. Will continue levalbuterol 0.63 and ipratropium 0.5 mg nebs q.6 hours. Repeat COVID RSV influenza swab negative. Respiratory pathogen panel, mycoplasma IgM, urine Legionella, urine pneumococcal pending. Continue ceftriaxone for Haemophilus influenzae with beta lactamase in the blood and doxycycline both day 4. Patient can use noninvasive on a p.r.n. basis with goal saturations 90-94% if she is off with Airvo or high- flow nasal cannula as tolerated. 06/28/24: patient wore the hospital noninvasive ventilator with the AVAPS settings and said the mask was heavy but she did get some sleep. When I entered the room she was on Vapotherm 40 L 32% FiO2 with saturations 95% and we switched her 4 L nasal cannula and her saturations were 94%. She had a temperature yesterday to 37.6. Patient states she is breathing 30% back to her normal. Dry cough persists. No wheezing. White blood cell count 14.7, creatinine 0.9. ABG on the AVAPS setting 7.39/62/90. Chest x-ray was no focal consolidations. Repeat COVID, influenza, RSV RT PCR studies negative. Plan: Continue levalbuterol 0.63 and ipratropium 0.5 mg nebs q.6 hours. Continue ceftriaxone and doxycycline both day 5. Noninvasive ventilator p.r.n. during the day and she should wear this when she sleeps. Goal saturation 90-94 titer oxygen accordingly. 06/29/2024. patient states she is improving. She is transferred out of the ICU and states she has 60-70% back to her normal today. She is walking in the room. She has a dry cough that is improved. Currently she is on room air with saturations 92%. White blood cell count 14.1, creatinine 0.7. plan: I will discontinue albuterol, ipratropium budesonide nebulizers and place her on trelegy 100 - 62.5-25 at 1 puff q.day. Goal saturation 90-94%. she has completed doxycycline for 5 days and is on ceftriaxone with a plan to change her to oral Levaquin for total of 10 days course. If the patient remains clinically stable consider discharge on 06/30 on these pulmonary medications: Levaquin 750 mg PO Q day last dose 07/03/24. Breztri 160-9-4.8 at 2 puffs b.i.d. Rescue albuterol 2 puffs q.4 hours p.r.n. shortness of breath or wheezing Oxygen at rest and with activity per formal home O2 assessment which is ordered for today. When she naps or sleeps noninvasive ventilator through [employer] with TTV-VAPS-AE settings with a backup rate of 14, tidal volume 500, EPAP minimum 5, EPAP m aximum 15, minimum pressure support 6, maximum pressure support 25, with oxygen determined by overnight oximetry on 06/29/24. If overnight oximetry on her home machine with room air demonstrates saturations less than or equal to 88% less than 5 minutes she requires no supplemental oxygen at night. If saturations less than or equal to 88% or greater than 5 minutes she should be discharged on 2 L bleed in. Follow-up in the Pulmonary Clinic in 4 weeks. 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 Pulmonary inpatient consult services will resume on 07/02/2024, call with questions. Discussed with Dr. Polanco. (2) Respiratory failure with hypoxia and hypercapnia: Code(s): J96.91 - Respiratory failure, unspecified with hypoxia; J96.92 - Respiratory failure, unspecified with hypercapnia Status: Acute Assessment and Plan: The patient presents on 06/24/2024 with acute on chronic hypercarbic respiratory failure with blood gas on BiPAP of 7.24/73/314. Her serum bicarb on admission was 33. The patient has chronic hypercarbic respiratory failure from COPD. She would benefit from noninvasive ventilation to prevent further deterioration and subsequent hospitalizations. Patient cannot tolerate BiPAP due to the high pressures. I will initiate noninvasive ventilation with the AVAPS mode. 06/26/2024: Currently the patient is on BiPAP rate of 16 pressures 20/8 50% FiO2 with saturations 100%. The patient states that she is breathing better than when she arrived. The patient states that she cannot tolerate the BiPAP pressures. Her white blood cell count is 13.6, creatinine is 0.8. Blood gas is 7.34/57/99 on these settings. I changed the patient to the AVAPS mode and adjust the settings to comfort resulting in a rate of 14, tidal volume 500, EPAP 5, minimal inspiratory pr essure 6, maximal inspiratory pressure 25, inspiratory time 1.0, rise of 3 and 32% FiO2. Plan: I will obtain ABG in the morning prior to removal of the noninvasive ventilation with the AVAPS. 06/27/24: She slept with the noninvasive ventilator in the AVAPS settings as above and did well and said that she did sleep last night. ABG prior to removal of 7.40/51/99. Plan: Current noninvasive ventilator settings provide adequate ventilation. Once the patient oxygenation has stabilized will perform overnight oximetry on these settings. I have spoken to the audio visual coordinator and will initiate the process for a home noninvasive ventilator. 06/28/24: patient wore the hospital noninvasive ventilator with the AVAPS settings and said the mask was heavy but she did get some sleep. ABG on the AVAPS setting 7.39//90. Plan: We have initiated home noninvasive ventilation through the [employer] via [employer]. She should wear the noninvasive ventilator at night when she sleeps with 32% FiO2. Will assess oxygen needs when she is clinically stable. Will set up home ventilator in the hospital if possible. Later in the day filled out an order form with via [employer] for noninvasive ventilator with the TT V-VAPS-AE settings with a backup rate of 14, tidal volume 500, EPAP minimum 5, EPAP maximum 15, minimum pressure support 6, maximum pressure support 25, 3 L bleed in. 06/29/24. Patient wore the hospital noninvasive ventilator with a fullface mask and said that she did pretty good with this. She has a nasal bridge excoriation and erythema from the fullface mask. She slept for about 85% of the night. Overnight oximetry with recording duration of 8 hours and 3 minutes. Average saturation 96%. Low saturation 87%. Time with saturation less than or equal to 88% was 0 minutes. Oxygen desaturation index 1.1. Plan: Plan to set up home noninvasive ventilator in the hospital so she can wear this tonight. she will wear this with room air. Will inform [employer] that she has a bruised excoriated nasal bridge and that she should have a mask that will not irritate this area. Will check overnight oximetry on room air an ABG prior to removal to assess oxygenation and ventilation. Subjective Date/time seen: 06/29/24 11:41 Interval history: 06/26/2024: This is a new pulmonary consult for COPD with hypercarbic respiratory failure. 58-year-old with a history of severe COPD, asthma, hypertension and current vaping. Patient is currently on BiPAP in the ICU. Family is in the room and patient had 2 weeks shortness of breath, fever, cough and presented to the emergency room on 06/24/2024 with room air sats by EMS 61%. she had bilateral wheezing, white blood cell count 11.6, eosinophils 0%. Creatinine 1.0, MRSA swab negative, COVID, influenza, RSV swab negative, CT angiogram of the chest with no PE, very minimal infiltrate in the right upper lobe and left lower lobe and bilateral severe apical predominant panlobular emphysema. She was placed on CPAP And then placed on BiPAP. Blood gas on BiPAP 15/5 with pH of 7.24/73/314. Patient was given IV fluids, nebulizers, Solu-Medrol, ceftriaxone and doxycycline and admitted to the ICU. 06/26/2024: Currently the patient is on BiPAP rate of 16 pressures 20/8 50% FiO2 with saturations 100%. The patient states that she is breathing better than when she arrived. The patient states that she cannot tolerate the BiPAP pressures. Her white blood cell count is 13.6, creatinine is 0.8. Blood gas is 7.34/57/99 on these settings. I changed the patient to the AVAPS mode and adjust the settings to comfort resulting in a rate of 14, tidal volume 500, EPAP 5, minimal inspiratory pressure 6, maximal inspiratory pressure 25, inspiratory time 1.0, rise of 3 and 32% FiO2. 06/27/2024: Patient wore the noninvasive ventilator most of the day yesterday but was off for a few hours on Airvo yesterday afternoon. She slept with the noninvasive ventilator in the AVAPS settings as above and did well and said that she did sleep last night. ABG prior to removal of 7.40/51/99. Overall she feels that she is a little better. She has a dry cough and no wheezing. Currently patient is on AVAPS 32% with saturations 98%. Her white blood cell count is 14.6, creatinine is 0.9. Chest x-ray today shows no consolidations, pleural effusions. 06/28/24: patient wore the hospital noninvasive ventilator with the AVAPS settings and said the mask was heavy but she did get some sleep. When I entered the room she was on Vapotherm 40 L 32% FiO2 with saturations 95% and we switched her 4 L nasal cannula and her saturations were 94%. She had a temperature yesterday to 37.6. Patient states she is breathing 30% back to her normal. Dry cough persists. No wheezing. White blood cell count 14.7, creatinine 0.9. ABG on the AVAPS setting 7.39/62/90. Chest x-ray was no focal consolidations. later in the day patient had a CT scan of the abdomen and pelvis with a 6.9 cm left adrenal mass consistent with renal cell carcinoma as well as 1.3 cm left and right adrenal nodules which could raise the present adrenal adenomas or metastatic disease. 06/29/2024. patient states she is improving. She is transferred out of the ICU and states she has 60-70% back to her normal today. She is walking in the room. She has a dry cough that is improved. Currently she is on room air with saturations 92%. White blood cell count 14.1, creatinine 0.7. Patient wore the hospital noninvasive ventilator with a fullface mask and said that she did pretty good with this. She has a nasal bridge excoriation and erythema from the fullface mask. She slept for about 85% of the night. Overnight oximetry with recording duration of 8 hours and 3 minutes. Average saturation 96%. Low saturation 87%. Time with saturation less than or equal to 88% was 0 minutes. Oxygen desaturation index 1.1. DATA: 06/28/24: EXAMINATION: CT abdomen pelvis wo/w con DATE: 06/28/2024 10:11 INDICATION: Left-sided renal mass COMPARISON: None FINDINGS: Emphysema at the bilateral lung bases. Heart size is normal. No pericardial or pleural effusion. Focal hepatic steatosis at the ligamentum teres. Scattered small hepatic and splenic calcification consistent with old granulomatous disease. Gallbladder and pancreas are normal. 1.3 cm nodules in both the left and right adrenal glands. 8 mm low-attenuation cyst at the upper pole the right kidney. 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 6.9 x 6.8 cm heterogeneously enhancing mass with internal dystrophic calcifications arising from the lower pole of the left kidney consistent with renal cell carcinoma. Bowels including appendix are normal. Arambula catheter within the decompressed bladder. There are couple uterine fibroids the larger measuring 4.4 cm at the right side of the uterine body with a 9 mm pedunculated fibroid arising from the left side of the fundus. Bilateral adnexa are unremarkable. Small amount of likely physiologic free fluid in the pelvis. No pathologically enlarged abdominal or pelvic lymphadenopathy. Mild lumbar spondylosis. IMPRESSION: 1. 6.9 cm left renal mass consistent with renal cell carcinoma. 2. A pair of 1.3 cm left and right adrenal nodules which could represent adrenal adenomas or metastatic disease. Could consider further evaluation with MRI as clinically indicated. 3. Fibroid uterus. 06/25/24: Echo Summary 1. The left ventricle is normal in size and systolic function. There is concentric left ventricular remodeling. The left ventricular ejection fraction is visually estimated to be 60-65%. 2. The right ventricle is not well visualized however the systolic function by tissue Doppler appears normal. 3. Technically difficult study with limited views. Right Ventricle The right ventricle is not well visualized however the systolic function by tissue Doppler appears normal. Left Atria The left atrium is normal size. Right Atria The right atrium is normal size. 06/24/24: EXAMINATION: CTA chest PE protocol DATE: 06/24/2024 07:39 INDICATION: Hypoxia. TECHNIQUE: Computed tomography angiography (CTA) of the chest was performed with 100 mL Omnipaque-350 intravenous contrast timed to evaluate the pulmonary arteries. Coronal maximum intensity projection 3D-reconstructions were created by the technologist. Automated exposure control and iterative reconstruction technique were employed. The dose-length product was 723.65 mGy-cm. COMPARISON: Chest CT 01/22/17 FINDINGS: There is severe emphysema. There are centrilobular nodules in left lower lobe and right upper lobe. No pleural effusion. The heart size is normal. No pericardial effusion. There is no pulmonary embolus. Calcifications in the liver and spleen are consistent with old granulomatous disease. Partially visualized is a 5.9 cm mass in left kidney. There are masses in the adrenal glands measuring up to 13 mm on the left without change, likely adenomas. There is mild thoracic and lumbar spondylosis. IMPRESSION: 1. 5.9 cm mass in left kidney suspicious for renal cell carcinoma. Abdomen CT without and with contrast is recommended. 2. No pulmonary embolus. Sensitivity is moderately decreased by motion artifact. 3. Mild pneumonia in right upper lobe and left lower lobe. 4. Severe emphysema. 01/22/2017: EXAMINATION: CTA CHEST (PULMONARY ART) INDICATION: Shortness of breath. TECHNIQUE: Computed tomography angiography (CTA) of the chest was performed with 100 mL Omnipaque-350 intravenous contrast timed to evaluate the pulmonary arteries. Coronal maximum intensity projection 3D-reconstructions were created by the technologist. Automated exposure control and iterative reconstruction technique were employed. The dose-length product was 273 mGy-cm. COMPARISON: Chest single view 01/22/17 FINDINGS: There is moderate emphysema. There is mild scarring at the lung apices. There is mild atelectasis in lingula. A calcified left lung nodule and calcified left hilar lymph nodes are consistent with old granulomatous disease. No pleural effusion. The heart size is normal. No pericardial effusion. There is no pulmonary embolus. There is mild bilateral hilar and mediastinal lymphadenopathy. For example, a right hilar node measures 20 x 17 mm. There is a 2.2 cm mass in right adrenal gland measuring low attenuation, consistent with an adenoma. There is mild thoracic spondylosis. IMPRESSION: 1. No pulmonary embolus. 2. Moderate emphysema. 3. Mild bilateral hilar and mediastinal lymphadenopathy, likely reactive. 06/28/2016: PFT report FVC NORMAL, FEV1, FEV1% DECREASED. THERE IS ACUTE BRONCHODILATOR RESPONSE. LUNG VOLUMES ARE ALL INCREASED CONSISTENT WITH HYPERINFLATION AND AIR TRAPPING. RAW IS INCREASED. DLCO IS MODERATELY DECREASED WITH PARTIAL CORRECTION FOR VA. IMPRESSION: SEVERE OBSTRUCTIVE VENTILATORY DEFECT WITH ACUTE BRONCHODILATOR RESPONSE. MODERATELY DECREASED DLCO. ABG (RA) 7.41/ 43/ 72/ 27/ 87%/ CoHb 8.2 REVEALS MILD HYPOXEMIA WITH SIGNIFICANTLY DECREASED O2 CONTENT SECONDARY TO INCREASED CoHb. Review of Systems Constitutional: Constitutional: Reports no additional constitutional complaints Eyes: Eyes: Reports no additional eye complaints ENT: Reports system reviewed and no additional complaints, except as documented Cardiovascular: Cardiovascular: Reports no additional cardiovascular complaints Respiratory: Respiratory: Reports no additional respiratory complaints Gastrointestinal: Gastrointestinal: Reports no additional gastrointestinal complaints Musculoskeletal: Musculoskeletal: Reports no additional musculoskeletal complaints Neurologic: Reports system reviewed and no additional complaints, except as documented Psychiatric: Psychiatric: Reports no additional psychiatric complaints Endocrine: Endocrine: Reports no additional endocrine complaints Hematologic/Lymphatic: Hematologic/Lymphatic: Reports no additional hematologic/lymphatic complaints Allergic/Immunologic: Allergic/Immunologic: Reports no additional allergic/immunologic complaints Exam Const: General: cooperative, healthy appearing and comfortable Orientation/consciousness: oriented to person, oriented to place and oriented to time HENMT: Head: normal to inspection Ears: hearing grossly normal bilaterally Eyes: General: appearance normal, both eyes and all related structures Neck: Neck: normal visual inspection Chest: Chest palpation & inspection: normal inspection of the chest Resp: Effort & Inspection: normal respiratory effort and able to speak in complete sentences Auscultation: no crackles, no rales, no rhonchi, no wheezes and diminished lung sounds Cardio: Jugular venous distension: no JVD GI: Inspection: normal to inspection Skin: General skin exam: normal color Neuro: General: oriented to person, oriented to place and oriented to time Extrem: General: normal to inspection and edema Psych: Appearance: grossly normal Objective Data Vital Signs Vital Signs: Vital Signs - 24 hr 06/28/24 12:00 06/28/24 12:00 06/28/24 12:00 Temperature 36.8 C Pulse Rate 104 H 104 H Respiratory Rate 29 H Blood Pressure 133/76 Pulse Oximetry 96 94 Oxygen Delivery Nasal Cannula Oxygen Flow Rate 2 Fraction of Inspired Oxygen 06/28/24 12:45 06/28/24 13:10 06/28/24 13:10 Temperature Pulse Rate 105 H Respiratory Rate 22 H Blood Pressure Pulse Oximetry 96 93 Oxygen Delivery Nasal Cannula Nasal Cannula Oxygen Flow Rate 1 1 Fraction of Inspired Oxygen 24 06/28/24 13:21 06/28/24 13:22 06/28/24 14:00 Temperature Pulse Rate 120 H 116 H Respiratory Rate 22 H Blood Pressure Pulse Oximetry Oxygen Delivery Nasal Cannula Oxygen Flow Rate 1 Fraction of Inspired Oxygen 06/28/24 16:00 06/28/24 16:00 06/28/24 16:00 Temperature 36.5 C Pulse Rate 106 H 105 H Respiratory Rate 16 Blood Pressure 120/80 Pulse Oximetry 92 92 Oxygen Delivery Nasal Cannula Oxygen Flow Rate 1 Fraction of Inspired Oxygen 06/28/24 18:00 06/28/24 20:00 06/28/24 20:00 Temperature Pulse Rate 115 H 95 Respiratory Rate Blood Pressure Pulse Oximetry 95 Oxygen Delivery Nasal Cannula Oxygen Flow Rate 1 Fraction of Inspired Oxygen 06/28/24 20:12 06/28/24 20:46 06/28/24 20:48 Temperature 36.6 C Pulse Rate 100 94 94 Respiratory Rate 16 27 H 24 H Blood Pressure 148/88 H Pulse Oximetry 95 96 Oxygen Delivery BiPAP Oxygen Flow Rate Fraction of Inspired Oxygen 06/28/24 20:53 06/28/24 22:00 06/28/24 23:48 Temperature Pulse Rate 95 85 Respiratory Rate Blood Pressure Pulse Oximetry 96 95 Oxygen Delivery BiPAP Oxygen Flow Rate Fraction of Inspired Oxygen 06/29/24 00:00 06/29/24 00:00 06/29/24 00:15 Temperature Pulse Rate 87 97 Respiratory Rate 24 H Blood Pressure Pulse Oximetry 95 95 Oxygen Delivery BiPAP BiPAP Oxygen Flow Rate Fraction of Inspired Oxygen 06/29/24 02:00 06/29/24 03:10 06/29/24 03:20 Temperature Pulse Rate 83 97 98 Respiratory Rate 24 H 23 H Blood Pressure Pulse Oximetry Oxygen Delivery Oxygen Flow Rate Fraction of Inspired Oxygen 06/29/24 04:00 06/29/24 04:00 06/29/24 04:00 Temperature 36.9 C Pulse Rate 85 86 Respiratory Rate 20 Blood Pressure 135/78 Pulse Oximetry 95 98 Oxygen Delivery BiPAP Oxygen Flow Rate Fraction of Inspired Oxygen 06/29/24 04:02 06/29/24 06:00 06/29/24 07:22 Temperature Pulse Rate 95 79 Respiratory Rate 23 H Blood Pressure Pulse Oximetry 96 92 Oxygen Delivery BiPAP Nasal Cannula Oxygen Flow Rate 1 Fraction of Inspired Oxygen 06/29/24 07:22 06/29/24 07:45 06/29/24 07:46 Temperature 37.1 C Pulse Rate 90 108 H 110 H Respiratory Rate 22 H 16 22 H Blood Pressure 148/87 H Pulse Oximetry 96 Oxygen Delivery Oxygen Flow Rate Fraction of Inspired Oxygen 06/29/24 08:00 06/29/24 08:52 Temperature Pulse Rate 112 H Respiratory Rate Blood Pressure Pulse Oximetry Oxygen Delivery Nasal Cannula Oxygen Flow Rate 1 Fraction of Inspired Oxygen Intake/Output Intake/Output: Intake & Output 06/26/24 06/27/24 06/28/24 06/29/24 23:59 23:59 23:59 23:59 Intake Total 2100 1780 1270 340 Output Total 775 850 980 800 Balance 1325 930 290 -460 Meds/Results Medications: Active Medications Generic Name Dose Route Start Last Admin Trade Name Freq PRN Reason Stop Dose Admin Acetaminophen 650 mg 06/24/24 10:52 Acetaminophen 325 Mg Tablet PO Q4H PRN Mild Pain (1-3) or Fever Enoxaparin Sodium 40 mg 06/25/24 09:00 06/29/24 09:15 Enoxaparin 40 Mg/0.4 Ml Syringe SUB-Q 40 mg DAILY MAX Administration Fluticasone/Umeclidinium/Vilanterol 1 puff 06/29/24 12:00 Fluticasone/Umeclidin/Vilanter 100-62.5-25 Mcg Ellipta INHALATION DAILYRT MAX Ceftriaxone Sodium 2 gm in 100 mls @ 200 mls/hr 06/26/24 09:00 06/29/24 11:15 Rocephin 2 Gm/Ns 100 Ml IVPB Infused DAILY MAX Infusion Ondansetron HCl 4 mg 06/24/24 10:52 Ondansetron Inj 4 Mg/2 Ml Vial IV PUSH Q4H PRN Nausea Pantoprazole Sodium 40 mg 06/25/24 09:00 06/29/24 09:15 Pantoprazole Sodium Iv 40 Mg Vial IV PUSH 40 mg QAM MAX Administration Radiology Results: ITS Impressions Chest CTA 06/24/24 07:46 IMPRESSION: 1. 5.9 cm mass in left kidney suspicious for renal cell carcinoma. Abdomen CT without and with contrast is recommended. 2. No pulmonary embolus. Sensitivity is moderately decreased by motion artifact. 3. Mild pneumonia in right upper lobe and left lower lobe. 4. Severe emphysema. Head CT 06/24/24 12:02 IMPRESSION: 1. Normal brain. Chest X-Ray 06/28/24 06:46 Impression: Clear lungs. COPD pattern. Abdomen/Pelvis CT 06/28/24 14:09 IMPRESSION: 1. 6.9 cm left renal mass consistent with renal cell carcinoma. 2. A pair of 1.3 cm left and right adrenal nodules which could represent adrenal adenomas or metastatic disease. Could consider further evaluation with MRI as clinically indicated. 3. Fibroid uterus. Labs Labs: Laboratory Results - last 24 hr 06/27/24 06/29/24 19:03 04:40 WBC 14.1 H RBC 3.45 L Hgb 10.3 L Hct 33.1 L MCV 95.9 MCH 29.9 MCHC 31.1 L RDW 13.2 Plt Count 254 MPV 9.4 Immature Gran % (Auto) 10.0 H Neut % (Auto) 72.8 Lymph % (Auto) 10.6 L [place] % (Auto) 5.5 Eos % (Auto) 0.5 Baso % (Auto) 0.6 Lymph # (Auto) 1.50 [place] # (Auto) 0.8 H Eos # (Auto) 0.1 Baso # (Auto) 0.1 Abs Immat Gran (auto) 1.41 H Absolute Neuts (auto) 10.3 H Absolute Nucleated RBC 0.000 Nucleated RBC % 0.0 Sodium 143 Potassium 3.5 Chloride 104 Carbon Dioxide 39 H Anion Gap 0 L BUN 22 H Creatinine 0.70 Estim Creat Clear Calc 72 Estimated GFR > 60 Glucose 110 Calcium 8.6 Magnesium 2.3 Total Bilirubin 0.3 AST 20 ALT 38 H Alkaline Phosphatase 95 Total Protein 5.0 L Albumin 2.8 L CA 15-3 Antigen 14
--- NOTE | 2024-06-29 12:32 | HOMEO2EVAL ---
Evaluation was performed at [facility] Home Oxygen Evaluation RC: Home Oxygen (O2) Evaluation Start: 06/29/24 10:33 Freq: ONCE Status: Active Protocol: RPE Activity Type Activity Date Activity User E-sign Co-sign Detail Recorded Client Recorded Date Recorded By Document 06/29/24 11:30 [email or web address] 06/29/24 12:32 PKH Document 06/29/24 11:35 [email or web address] 06/29/24 12:32 PKH Document 06/29/24 11:40 [email or web address] 06/29/24 12:32 PKH Document 06/29/24 11:45 [email or web address] 06/29/24 12:32 PK Document 06/29/24 11:55 [email or web address] 06/29/24 12:32 PKH 06/29/24 06/29/24 06/29/24 11:30 11:35 11:40 Home O2 Evaluation [Oxygen] -Test Phase Resting Exercise Exercise -Oxygen Delivery Room Air Room Air Nasal Cannula -Oxygen Flow Rate (L/min) 1 [Pulse Oximetry] -Pulse Oximetry (90-100 %) 92 86 L 87 L [Pulse Rate] -Pulse Rate (60-100 beats/min) 103 H 122 H 120 H [Exercise] -Ambulation Distance (feet) 360 -Ambulation Distance (meters) 109.72 [Charges] -Evaluation Charges O2 Evaluation O2 Evaluation by Pulmonary by Pulmonary 06/29/24 06/29/24 11:45 11:55 Home O2 Evaluation [Oxygen] -Test Phase Exercise Resting -Oxygen Delivery Nasal Cannula Autopap -Oxygen Flow Rate (L/min) 2 [Pulse Oximetry] -Pulse Oximetry (90-100 %) 92 92 [Pulse Rate] -Pulse Rate (60-100 beats/min) 115 H 102 H [Exercise] -Ambulation Distance (feet) -Ambulation Distance (meters) [Charges] -Evaluation Charges
--- NOTE | 2024-06-29 12:41 | HOMEO2EVAL ---
Evaluation was performed at [facility] Home Oxygen Evaluation RC: Home Oxygen (O2) Evaluation Start: 06/29/24 10:33 Freq: ONCE Status: Active Protocol: RPE Activity Type Activity Date Activity User E-sign Co-sign Detail Recorded Client Recorded Date Recorded By Document 06/29/24 11:30 [email or web address] 06/29/24 12:32 PKH Document 06/29/24 11:35 [email or web address] 06/29/24 12:32 PKH Document 06/29/24 11:40 [email or web address] 06/29/24 12:32 PKH Document 06/29/24 11:45 [email or web address] 06/29/24 12:32 PK Document 06/29/24 11:55 [email or web address] 06/29/24 12:32 PKH 06/29/24 06/29/24 06/29/24 11:30 11:35 11:40 Home O2 Evaluation [Oxygen] -Test Phase Resting Exercise Exercise -Oxygen Delivery Room Air Room Air Nasal Cannula -Oxygen Flow Rate (L/min) 1 [Pulse Oximetry] -Pulse Oximetry (90-100 %) 92 86 L 87 L [Pulse Rate] -Pulse Rate (60-100 beats/min) 103 H 122 H 120 H [Exercise] -Ambulation Distance (feet) 360 -Ambulation Distance (meters) 109.72 [Charges] -Evaluation Charges O2 Evaluation O2 Evaluation by Pulmonary by Pulmonary 06/29/24 06/29/24 11:45 11:55 Home O2 Evaluation [Oxygen] -Test Phase Exercise Resting -Oxygen Delivery Nasal Cannula Room Air -Oxygen Flow Rate (L/min) 2 [Pulse Oximetry] -Pulse Oximetry (90-100 %) 92 92 [Pulse Rate] -Pulse Rate (60-100 beats/min) 115 H 102 H [Exercise] -Ambulation Distance (feet) -Ambulation Distance (meters) [Charges] -Evaluation Charges
--- NOTE | 2024-06-29 14:06 | P.PNIM_ITS ---
Progress Note: A&P Assessment and Plan (1) Respiratory failure with hypoxia and hypercapnia: Code(s): J96.91 - Respiratory failure, unspecified with hypoxia; J96.92 - Respiratory failure, unspecified with hypercapnia Status: Acute Assessment and Plan: Acute respiratory failure secondary to pneumonia and COPD exacerbation CTA negative for PE -on admission patient was placed on BiPAP but repeat ABG was worse likely secondary to low tidal volumes and high FiO2 -currently on AVAPS, will alternate with possible Vapotherm -continue ceftriaxone, doxycycline for community-acquired pneumonia -06/27: discontinued vancomycin as MRSA nares is negative -continue bronchodilators -continue inhaled corticosteroid -appreciate pulmonology following the patient, IV steroids discontinued -COVID-19 and influenza swabs were negative -respiratory pathogen panel pending 06/25/2024: CTA chest IMPRESSION: 1. 5.9 cm mass in left kidney suspicious for renal cell carcinoma. Abdomen CT without and with contrast is recommended. 2. No pulmonary embolus. Sensitivity is moderately decreased by motion artifact. 3. Mild pneumonia in right upper lobe and left lower lobe. 4. Severe emphysema. planned home AVAPS which is being arranged for hypercapnic resp failure (2) Sepsis: Code(s): A41.9 - Sepsis, unspecified organism Status: Acute Assessment and Plan: Sepsis secondary to community-acquired pneumonia Management of respiratory failure as above -06/25: Blood cultures growing Hemophilus influenzae at 1/2 bottles, sensitivities pending -06/25/2024: Sputum culture with no growth -urine Legionella and pneumococcal antigens pending -viral panel per pulmonology is pending -lactic acids are normal -antibiotics as above -hemodynamics are stable -DC IV fluids 06/25/2024: Echocardiogram Summary 1. The left ventricle is normal in size and systolic function. There is concentric left ventricular remodeling. The left ventricular ejection fraction is visually estimated to be 60-65%. 2. The right ventricle is not well visualized however the systolic function by tissue Doppler appears normal. 3. Technically difficult study with limited views. (3) COPD exacerbation: Code(s): J44.1 - Chronic obstructive pulmonary disease with (acute) exacerbation Status: Acute Assessment and Plan: Continue NIPPV, bronchodilators and antibiotics as above (4) PNA (pneumonia): Code(s): J18.9 - Pneumonia, unspecified organism Status: Acute Assessment and Plan: See above (5) Left kidney mass: Code(s): N28.89 - Other specified disorders of kidney and ureter Status: Acute Assessment and Plan: CT scan shows incidental 6 cm left kidney mass suspicious for renal cell carcinoma. planned op workup per urology -appreciate heme Onc evaluation and recommendation -CT pelvis with and without contrast has been ordered per Dr. Kelly -consulted Urology (6) Encephalopathy: Code(s): G93.40 - Encephalopathy, unspecified Status: Acute Assessment and Plan: Likely secondary to CO2 narcosis Management of respiratory failure as above Negative head CT Normal ammonia and TSH Improved (7) Elevated troponin: Code(s): R79.89 - Other specified abnormal findings of blood chemistry Status: Acute Assessment and Plan: No documented history of coronary disease. Patient had 1st troponin check which was mildly abnormal and repeat troponin was in normal range. Likely elevation secondary to respiratory failure and tachycardia EKG reviewed. Serial troponins negative Echo as above Monitor Plan DVT prophylaxis -Lovenox Stress ulcer prophylaxis -PPI Nutrition -regular Code Status - Full Code Subjective Date/time seen: 06/29/24 14:06 Interval history: no overnight events, no new complaints. sob with exertion which is improving. no nausea, vomiting. discussed with urology and pulmonary Review of Systems Review of Systems: All systems reviewed & are unremarkable except as noted in HPI and below Exam Narrative: General: Patient is awake, alert o RA, in no acute distress Lungs/Chest: Trachea central Clear BS B/L, improved air entry this morning, no wheezing Cardiac: regular rate and rhythm. Normal S1 S2. No murmurs Circulation: Pedal pulses are intact and symmetrical. Abdomen: Normal bowel sounds. Obese. Soft. NT. ND. Extremities: No clubbing, cyanosis or edema. Warm : Arambula in place Neurologic: Alert awake, follows commands all 4 extremities. Alert oriented x3 PERRL Skin: No Rash Objective Data Vital Signs Vital Signs: Vital Signs - 24 hr 06/28/24 16:00 06/28/24 16:00 06/28/24 16:00 Temperature 97.7 F Pulse Rate 106 H 105 H Respiratory Rate 16 Blood Pressure 120/80 Pulse Oximetry 92 92 Oxygen Delivery Nasal Cannula Oxygen Flow Rate 1 Fraction of Inspired Oxygen 06/28/24 18:00 06/28/24 20:00 06/28/24 20:00 Temperature Pulse Rate 115 H 95 Respiratory Rate Blood Pressure Pulse Oximetry 95 Oxygen Delivery Nasal Cannula Oxygen Flow Rate 1 Fraction of Inspired Oxygen 06/28/24 20:12 06/28/24 20:46 06/28/24 20:48 Temperature 97.9 F Pulse Rate 100 94 94 Respiratory Rate 16 27 H 24 H Blood Pressure 148/88 H Pulse Oximetry 95 96 Oxygen Delivery BiPAP Oxygen Flow Rate Fraction of Inspired Oxygen 06/28/24 20:53 06/28/24 22:00 06/28/24 23:48 Temperature Pulse Rate 95 85 Respiratory Rate Blood Pressure Pulse Oximetry 96 95 Oxygen Delivery BiPAP Oxygen Flow Rate Fraction of Inspired Oxygen 06/29/24 00:00 06/29/24 00:00 06/29/24 00:15 Temperature Pulse Rate 87 97 Respiratory Rate 24 H Blood Pressure Pulse Oximetry 95 95 Oxygen Delivery BiPAP BiPAP Oxygen Flow Rate Fraction of Inspired Oxygen 06/29/24 02:00 06/29/24 03:10 06/29/24 03:20 Temperature Pulse Rate 83 97 98 Respiratory Rate 24 H 23 H Blood Pressure Pulse Oximetry Oxygen Delivery Oxygen Flow Rate Fraction of Inspired Oxygen 06/29/24 04:00 06/29/24 04:00 06/29/24 04:00 Temperature 98.5 F Pulse Rate 85 86 Respiratory Rate 20 Blood Pressure 135/78 Pulse Oximetry 95 98 Oxygen Delivery BiPAP Oxygen Flow Rate Fraction of Inspired Oxygen 06/29/24 04:02 06/29/24 06:00 06/29/24 07:22 Temperature Pulse Rate 95 79 Respiratory Rate 23 H Blood Pressure Pulse Oximetry 96 92 Oxygen Delivery BiPAP Nasal Cannula Oxygen Flow Rate 1 Fraction of Inspired Oxygen 06/29/24 07:22 06/29/24 07:45 06/29/24 07:46 Temperature 98.7 F Pulse Rate 90 108 H 110 H Respiratory Rate 22 H 16 22 H Blood Pressure 148/87 H Pulse Oximetry 96 Oxygen Delivery Oxygen Flow Rate Fraction of Inspired Oxygen 06/29/24 08:00 06/29/24 08:00 06/29/24 08:52 Temperature Pulse Rate 112 H 112 H Respiratory Rate 22 H Blood Pressure Pulse Oximetry 96 Oxygen Delivery Nasal Cannula Nasal Cannula Oxygen Flow Rate 1 1 Fraction of Inspired Oxygen 06/29/24 09:15 06/29/24 11:30 06/29/24 11:35 Temperature Pulse Rate 103 H 122 H Respiratory Rate Blood Pressure Pulse Oximetry 92 86 L Oxygen Delivery Room Air Room Air Room Air Oxygen Flow Rate Fraction of Inspired Oxygen 06/29/24 11:40 06/29/24 11:45 06/29/24 11:55 Temperature Pulse Rate 120 H 115 H 102 H Respiratory Rate Blood Pressure Pulse Oximetry 87 L 92 92 Oxygen Delivery Nasal Cannula Nasal Cannula Room Air Oxygen Flow Rate 1 2 Fraction of Inspired Oxygen Intake/Output Intake/Output: Intake & Output 06/26/24 06/27/24 06/28/24 06/29/24 23:59 23:59 23:59 23:59 Intake Total 2100 1780 1270 340 Output Total 775 850 980 800 Balance 1325 930 290 -460 Meds/Results Medications: Active Medications Generic Name Dose Route Start Last Admin Trade Name Freq PRN Reason Stop Dose Admin Acetaminophen 650 mg 06/24/24 10:52 Acetaminophen 325 Mg Tablet PO Q4H PRN Mild Pain (1-3) or Fever Enoxaparin Sodium 40 mg 06/25/24 09:00 06/29/24 09:15 Enoxaparin 40 Mg/0.4 Ml Syringe SUB-Q 40 mg DAILY [facility] Administration Fluticasone/Umeclidinium/Vilanterol 1 puff 06/29/24 12:00 Fluticasone/Umeclidin/Vilanter 100-62.5-25 Mcg Ellipta INHALATION DAILYRT [facility] Levofloxacin 750 mg 06/30/24 09:00 Levofloxacin 750 Mg Tablet PO 07/04/24 09:01 DAILY [facility] Ondansetron HCl 4 mg 06/24/24 10:52 Ondansetron Inj 4 Mg/2 Ml Vial IV PUSH Q4H PRN Nausea Pantoprazole Sodium 40 mg 06/25/24 09:00 06/29/24 09:15 Pantoprazole Sodium Iv 40 Mg Vial IV PUSH 40 mg QAM MAX Administration Radiology Results: ITS Impressions Chest CTA 06/24/24 07:46 IMPRESSION: 1. 5.9 cm mass in left kidney suspicious for renal cell carcinoma. Abdomen CT without and with contrast is recommended. 2. No pulmonary embolus. Sensitivity is moderately decreased by motion artifact. 3. Mild pneumonia in right upper lobe and left lower lobe. 4. Severe emphysema. Head CT 06/24/24 12:02 IMPRESSION: 1. Normal brain. Chest X-Ray 06/28/24 06:46 Impression: Clear lungs. COPD pattern. Abdomen/Pelvis CT 06/28/24 14:09 IMPRESSION: 1. 6.9 cm left renal mass consistent with renal cell carcinoma. 2. A pair of 1.3 cm left and right adrenal nodules which could represent adrenal adenomas or metastatic disease. Could consider further evaluation with MRI as clinically indicated. 3. Fibroid uterus. Labs Labs: Laboratory Results - last 24 hr 06/27/24 06/29/24 19:03 04:40 WBC 14.1 H RBC 3.45 L Hgb 10.3 L Hct 33.1 L MCV 95.9 MCH 29.9 MCHC 31.1 L RDW 13.2 Plt Count 254 MPV 9.4 Immature Gran % (Auto) 10.0 H Neut % (Auto) 72.8 Lymph % (Auto) 10.6 L [place] % (Auto) 5.5 Eos % (Auto) 0.5 Baso % (Auto) 0.6 Lymph # (Auto) 1.50 [place] # (Auto) 0.8 H Eos # (Auto) 0.1 Baso # (Auto) 0.1 Abs Immat Gran (auto) 1.41 H Absolute Neuts (auto) 10.3 H Absolute Nucleated RBC 0.000 Nucleated RBC % 0.0 Sodium 143 Potassium 3.5 Chloride 104 Carbon Dioxide 39 H Anion Gap 0 L BUN 22 H Creatinine 0.70 Estim Creat Clear Calc 72 Estimated GFR > 60 Glucose 110 Calcium 8.6 Magnesium 2.3 Total Bilirubin 0.3 AST 20 ALT 38 H Alkaline Phosphatase 95 Total Protein 5.0 L Albumin 2.8 L CA 15-3 Antigen 14
[2024-06-29] MEDS: NEOMYCIN/POLYMYXIN/BACITR/HC OINT 15 GM TUBE 1 APPLIC TOPICAL (15:12)
[2024-06-30 05:29] LABS: Base Excess ABG 13.5 mEq/l (+/-2.0); Fractional Inspired Oxygen 21 %; HCO3 ABG 39.6 mEq/l (22.0-26.0); Oxygen Content ABG 14.8 %vol (16.0-22.0); PCO2 ABG 57.2 mmHg (35.0-45.0); PO2 FiO2 Ratio Arterial Blood 2.34 %; Total Hemoglobin 12.3 g/dL (12.0-18.0); pH ABG 7.458 (7.350-7.450)
[2024-06-30 05:33] LABS: PO2 ABG 49.2 mmHg (80.0-100.0)
[2024-06-30 05:34] LABS: Modified Allen's Test Pass; Oxygen Saturation ABG 85.7 % (95.0-100.0); Oxyhemoglobin 85.8 % THb (90.0-100.0); Site Drawn RIGHT RADIAL
[2024-06-30 05:35] LABS: Device OTHER DEVICE
[2024-06-30 05:44] VITALS: BP 162/84; PULSE 81; RESP 18; TEMP 36.4; O2SAT 95
[2024-06-30 08:00] VITALS: O2SAT 99
[2024-06-30 08:23] VITALS: O2SAT 95
[2024-06-30] MEDS: FLUTICASONE/UMECLIDIN/VILANTER 100-62.5-25 MCG ELLIPTA 1 PUFF INHALATION (08:23)
[2024-06-30] MEDS: ENOXAPARIN 40 MG/0.4 ML SYRINGE SUB-Q (10:12)
[2024-06-30] MEDS: levoFLOXacin 750 MG TABLET PO (10:13)
[2024-06-30] MEDS: PANTOPRAZOLE SODIUM IV 40 MG VIAL IV PUSH (10:13)
--- NOTE | 2024-06-30 13:24 | PM.DS ---
DS: Admitting Diagnosis Discharge Date 06/30/2024 Admitting Diagnosis Shortness of breath DS: Discharge Diagnosis Discharge Diagnosis (1) Respiratory failure with hypoxia and hypercapnia: Code(s): J96.91 - Respiratory failure, unspecified with hypoxia; J96.92 - Respiratory failure, unspecified with hypercapnia Status: Acute (2) Sepsis: Code(s): A41.9 - Sepsis, unspecified organism Status: Acute (3) COPD exacerbation: Code(s): J44.1 - Chronic obstructive pulmonary disease with (acute) exacerbation Status: Acute (4) PNA (pneumonia): Code(s): J18.9 - Pneumonia, unspecified organism Status: Acute (5) Left kidney mass: Code(s): N28.89 - Other specified disorders of kidney and ureter Status: Acute (6) Encephalopathy: Code(s): G93.40 - Encephalopathy, unspecified Status: Acute (7) Elevated troponin: Code(s): R79.89 - Other specified abnormal findings of blood chemistry Status: Acute DS: Summary Hospital Course Hospital Course: # Respiratory failure with hypoxia and hypercapnia: Acute respiratory failure secondary to pneumonia and COPD exacerbation CTA negative for PE -on admission patient was placed on BiPAP but repeat ABG was worse likely secondary to low tidal volumes and high FiO2 -currently on AVAPS, will alternate with possible Vapotherm -continue ceftriaxone, doxycycline for community-acquired pneumonia -06/27: discontinued vancomycin as MRSA nares is negative -continue bronchodilators -continue inhaled corticosteroid -appreciate pulmonology following the patient, IV steroids discontinued -COVID-19 and influenza swabs were negative 06/25/2024: CTA chest IMPRESSION: 1. 5.9 cm mass in left kidney suspicious for renal cell carcinoma. Abdomen CT without and with contrast is recommended. 2. No pulmonary embolus. Sensitivity is moderately decreased by motion artifact. 3. Mild pneumonia in right upper lobe and left lower lobe. 4. Severe emphysema. Started on home AVAPS which was arranged for hypercapnic resp failure # Sepsis: Sepsis secondary to community-acquired pneumonia Management of respiratory failure as above -06/25: Blood cultures growing Hemophilus influenzae at 1/2 bottles, sensitivities pending -06/25/2024: Sputum culture with no growth -urine Legionella and pneumococcal antigens pending -viral panel per pulmonology is pending -lactic acids are normal -antibiotics as above -hemodynamics are stable -DC IV fluids 06/25/2024: Echocardiogram Summary 1. The left ventricle is normal in size and systolic function. There is concentric left ventricular remodeling. The left ventricular ejection fraction is visually estimated to be 60-65%. 2. The right ventricle is not well visualized however the systolic function by tissue Doppler appears normal. 3. Technically difficult study with limited views. # COPD exacerbation: Continue NIPPV, bronchodilators and antibiotics as above # PNA (pneumonia): See above # Left kidney mass: CT scan shows incidental 6 cm left kidney mass suspicious for renal cell carcinoma. planned op workup per urology -appreciate heme Onc evaluation and recommendation -CT pelvis with and without contrast has been ordered per Dr. Kelly -consulted Urology Plan outpatient workup potentially need nephrectomy # Encephalopathy: Likely secondary to CO2 narcosis Management of respiratory failure as above Negative head CT Normal ammonia and TSH Improved # Elevated troponin: No documented history of coronary disease. Patient had 1st troponin check which was mildly abnormal and repeat troponin was in normal range. Likely elevation secondary to respiratory failure and tachycardia EKG reviewed. Serial troponins negative Echo as above Monitor # DVT prophylaxis -Lovenox # Nutrition -regular # Code Status - Full Code Time Spent with Patient Time attestation: Total time spent providing and/or coordinating discharge services: 40 minutes Exam Narrative: General: Patient is awake, alert o RA, in no acute distress Lungs/Chest: Trachea central Clear BS B/L, improved air entry this morning, no wheezing Cardiac: regular rate and rhythm. Normal S1 S2. No murmurs Circulation: Pedal pulses are intact and symmetrical. Abdomen: Normal bowel sounds. Obese. Soft. NT. ND. Extremities: No clubbing, cyanosis . Warm. Mild pitting edema lower extremity Neurologic: Alert awake, follows commands all 4 extremities. Alert oriented x3 PERRL Skin: No Rash DS: Data Data Completed and Pending Completed studies during hospitalization: Pending at discharge 06/25/24 19:28 Cytology [PTH] Routine Exam Type: CA echo dop color flow w con Study Info Indications - RESP FAILURE Complete two-dimensional, color flow and Doppler transthoracic echocardiogram is performed with contrast to opacify the left ventricle and to improve the deliniation of the left ventricle endocardial borders. Contrast/Agitated Saline Contrast/Ag. Saline: Definity Amount: 2.00 ml Existing IV Access: Yes Reason for Poor Study: poor echocardiographic windows Summary 1. The left ventricle is normal in size and systolic function. There is concentric left ventricular remodeling. The left ventricular ejection fraction is visually estimated to be 60-65%. 2. The right ventricle is not well visualized however the systolic function by tissue Doppler appears normal. 3. Technically difficult study with limited views. Left Ventricle The left ventricle is normal in size and systolic function. There is concentric left ventricular remodeling. The left ventricular ejection fraction is visually estimated to be 60-65%. Right Ventricle The right ventricle is not well visualized however the systolic function by tissue Doppler appears normal. Left Atria The left atrium is normal size. Right Atria The right atrium is normal size. Atrial Septum The atrial septum is not well visualized. Aortic Valve The aortic valve is not well visualized. The gradients across the valve suggests a normal functioning valve. Pulmonic Valve The pulmonic valve is not well visualized. There is no color Doppler evidence of pulmonic valve regurgitation. Mitral Valve The mitral valve is normal. There is no mitral regurgitation. Tricuspid Valve The tricuspid valve is not well visualized. There is trace tricuspid regurgitation. Pericardium/Pleural Pericardium is normal in appearance with no evidence for significant pericardial effusion. Inferior Vena Cava Dilated inferior vena cava with >50% collapse upon inspiration consistent with elevated right atrial pressure, 8 mmHg. Aorta The aortic root at the level of the sinus of Valsalva measures 3.0 cm in diameter. Labs on day of discharge: Labs from last 24 hours 06/30/24 05:11 Puncture Site Right radial ABG pH 7.458 H ABG pCO2 57.2 H ABG pO2 49.2 L* ABG PO2/FiO2 Ratio 2.34 ABG HCO3 39.6 H ABG O2 Saturation 85.7 L* ABG O2 Content 14.8 L ABG Base Excess 13.5 A-a Gradient 32.0 Oxyhemoglobin 85.8 L* Total Hemoglobin 12.3 O2 Delivery Device Other device O2 Liters/Min Not Reportable FiO2 21 Imaging Radiologist's impression: ITS Impressions Chest X-Ray 06/24/24 06:21 IMPRESSION: 1. Emphysema. Chest CTA 06/24/24 07:46 IMPRESSION: 1. 5.9 cm mass in left kidney suspicious for renal cell carcinoma. Abdomen CT without and with contrast is recommended. 2. No pulmonary embolus. Sensitivity is moderately decreased by motion artifact. 3. Mild pneumonia in right upper lobe and left lower lobe. 4. Severe emphysema. Head CT 06/24/24 12:02 IMPRESSION: 1. Normal brain. Chest X-Ray 06/27/24 06:23 Impression: COPD. Clear lungs. Chest X-Ray 06/28/24 06:46 Impression: Clear lungs. COPD pattern. Abdomen/Pelvis CT 06/28/24 14:09 IMPRESSION: 1. 6.9 cm left renal mass consistent with renal cell carcinoma. 2. A pair of 1.3 cm left and right adrenal nodules which could represent adrenal adenomas or metastatic disease. Could consider further evaluation with MRI as clinically indicated. 3. Fibroid uterus. Discharge Plan Discharge Attending physician on discharge: Patrick Wen Consulting providers: Giancarlo Gutierrez; Yury Fatima; Luis Fernando Kelly; Juan Daniel Zhong Discharging Clinician: Patrick Wen Anticipated Discharge Date/Time: 06/30/24 13:25 Patient Disposition: Home, Self-Care Activity: as tolerated Diet: heart healthy Discharge Instructions: Oxygen 2 L with activity AVAPS at night with 2 L bled in Follow-up with Pulmonary in 4 weeks Follow-up with Urology in 1 week. Call for appointment Patient Instructions: Antibiotic Form, How to Quit Using Smokeless Tobacco (GEN) Patient Language: Bahamian Stand Alone Forms: General Discharge Information Follow-up/Referrals: Juan Daniel Zhong MD [Physician] - 1 Week [place], [Primary Care Provider] - 1 Week Yury Fatima MD [Physician] - 4 Weeks Discharge Medications: New levofloxacin 750 mg tablet 750 mg PO DAILY Qty: 4 0RF Continued atorvastatin 20 mg tablet 20 mg PO DAILY cetirizine 10 mg tablet 10 mg PO DAILY lisinopril 20 mg tablet 20 mg PO DAILY albuterol sulfate 90 mcg/actuation HFA aerosol inhaler 1 inh INHALATION Q4-6H PRN (Reason: Shortness Of Breath Or Wheezing) Breztri Aerosphere 160-9-4.8 mcg/actuation HFA aerosol inhaler 2 inh INHALATION BID Date of admission: 06/24/24 10:52 Primary Care Provider: [facility] [place], Admitting Provider: Matt Mcdaniels Attending physician on admission: Matt Mcdaniels Condition: Stable
--- NOTE | 2024-06-30 13:53 | PC.NURSE ---
Education on oxygen and home 02 orders, Patient and both demonstrated knowledge and taught back use of new home oxygen machine, patient stated she would call the motor vehicle field representative today. Patient alert and orientated able to ambulate and voids own her own. No c/o pain, no questions at this time.
[2024-07-01 20:38] LABS: Adenovirus DNA Not Detected (Not Detected); Chlamydophila pneumoniae Not Detected (Not Detected); Coronavirus 229E Not Detected (Not Detected); Coronavirus HKU1 Not Detected (Not Detected); Coronavirus NL63 Not Detected (Not Detected); Coronavirus OC43 Not Detected (Not Detected); Human Metapneumovirus Not Detected (Not Detected); Human Parainfluenza Virus 1 Not Detected (Not Detected); Human Parainfluenza Virus 2 Not Detected (Not Detected); Human Parainfluenza Virus 3 Not Detected (Not Detected); Human Parainfluenza Virus 4 Not Detected (Not Detected); Human RSV B Not Detected (Not Detected); Influenza A Not Detected (Not Detected); Influenza B Not Detected (Not Detected); Mycoplasma pneumoniae Not Detected (Not Detected); Rhinovirus/Enterovirus Not Detected (Not Detected)
[2024-07-01 21:14] LABS: Mycoplasma IgM Antibody Titer 50 U/mL
== END 2024-06-30 13:55 | disposition home or self-care (01) | DRG 871 ==
LOC: ANHED 09:50 → ANHICU 11:25 → ANHIMU 06-25 20:42 → ANHICU 06-25 20:46 → ANHIMU 06-28 17:11 → ANH3MEDSUR 06-30 13:25 → ANHIMU 07-02 10:36
PROVIDERS: Emergency Medicine; Internal Medicine; Internal Medicine Hematology & Oncology; Internal Medicine Pulmonary Disease; Admitting Provider Internal Medicine; Emergency Provider Emergency Medicine; Visit Provider Internal Medicine
DX: A41.3 Sepsis due to Hemophilus influenzae (principal); J18.9 Pneumonia, unspecified organism; J96.01 Acute respiratory failure with hypoxia; J96.22 Acute and chronic respiratory failure with hypercapnia; J44.0 Chronic obstructive pulmonary disease with (acute) lower respiratory infection; J44.1 Chronic obstructive pulmonary disease with (acute) exacerbation; G93.40 Encephalopathy, unspecified; N28.89 Other specified disorders of kidney and ureter; Z20.822 Contact with and (suspected) exposure to COVID-19; Z87.891 Personal history of nicotine dependence; Z85.3 Personal history of malignant neoplasm of breast
CPT/HCPCS: 36415; 36600; 70450; 71045; 71275; 74178; 80053; 80202; 82104; 82140; 82375; 82668; 82805; 82948; 83050; 83605; 83735; 84100; 84439; 84443; 84480; 84484; 85018; 85025; 86300; 86738; 87040; 87070; 87205; 87449; 87633; 87637; 87641; 87899; 88108; 93005; 94002; 94003; 94618; 94640; 94762; 96365; 96366; 96367; 96375; 97110; 97161; 97165; 97530; 99285; A9270; C8929; J0696; J1650; J1815; J2470; J2919; J3370; J3475; J7030; J7120; Q9957; Q9967

== ENCOUNTER 2024-08-08 12:20 | Outpatient (CLI) | payer OTHER, SELFPAY ==
--- OUTSIDE RECORDS SUMMARY | 2024-08-10 00:13 | XMS_ITS | Continuity of Care Document ---
Author Name [facility] Organization [facility] Care Team Providers Care Crossband Layer Name Role Phone [facility] Unavailable Unavailable Problems Combined list of problems from Department of Defense and Veterans Affairs facilities. It does not include entries that were removed or entered in error. Problem Status Onset Date Problem Type Date of Resolution Comments Source Renal mass Active 07/27/19 25 Diagnosis 9094P-Ir-H-[address] [facility] COPD - Chronic obstructive pulmonary disease Active 07/27/19 25 Diagnosis 5382R-Rm-E-[facility] Tachycardia Active 06/22/20 24 Diagnosis 4320Y-Ji-R-[facility] COPD - Chronic obstructive pulmonary disease Active 06/22/20 24 Diagnosis 3917D-As-X-[facility] Essential (primary) hypertension Active 08/18/19 19 Condition DoD Other specified counseling Active Condition DoD Encounter for gynecological examination (general) (routine) without abnormal findings Active Condition DoD Hyperlipidemia, unspecified Active Condition DoD Encounter for other specified special examinations Active Condition DoD cough Active Condition DoD nummular eczematous dermatitis Inactive Condition DoD Outpatient Physician Consultation Active Condition DoD breast neoplasm uncertain behavior Active Condition DoD ganglion right hand Active Condition Do D Imaging Studies Nonspecific Abnormal Findings Inactive Condition DoD thyroid neoplasm uncertain behavior Active Condition DoD current smoker Active Condition DoD visit for: screening exam thyroid disorders Inactive Condition DoD allergic rhinitis Active Condition DoD feeling congested in the chest Inactive Condition DoD visit for: postsurgical exam Active Condition DoD Aftercare Active Condition DoD menometrorrhagia Active Condition DoD menorrhagia Active Condition DoD Test Negative Inactive Condition DoD metrorrhagia Active Condition DoD Mammogram Screening Inactive Condition D oD nicotine dependence continuous Active Condition DoD sinusitis acute Inactive Condition DoD Blood Pressure Isolated Elevated Inactive Condition DoD sore throat Inactive Condition DoD mycoplasma infection Inactive Condition DoD X-Ray Inactive Condition DoD visit for: screening exam for malignant neoplasm cervix Inactive Condition DoD bronchitis Inactive Condition DoD other specified viral disease Inactive Condition DoD upper respiratory infection acute Inactive Condition DoD skin disorder exanthem Active Condition DoD skin neoplasm uncertain behavior Active Condition DoD dermatology skin condition Active Condition DoD joint pain, localized in the shoulder Active Condition DoD shoulder sprain Active Condition Advi sed to continue motrin. Patient referred to PT and will f/u in 1 month or prn. DoD smoking cigarettes Active Condition DoD ovarian cyst right Active Condition DoD visit for: administrative purpose Inactive Condition DoD ovarian cyst left Active Condition DoD postcoital bleeding Active Condition Do D visit for: screening exam malignant neoplasm breast Inactive Condition Exam normal and pt had mammogram earlier this month and was told it was negative. DoD dysfunctional uterine bleeding Active Condition DoD visit for: screening exam lipoid disorders Active Condition DoD non-neoplastic nevus Active Condition Mole-like lesion on left buttock present all my life but recent change in size and color. Pt referred to Derm for evaluation. 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 Taught exercises to strengthen those muscles. F/U PRN DoD hyperlipidemia Active Condition Has 2 risk factors, smoking and fmaily history but with HDL of 67 has effective risk factor of 1. Goal LDL less than 160-. Did stress diet and exercise to lower numbers. Repeat lab. DoD pain in leg lower Inactive Condition pt to continue rest, ice, NSAIDS, compression and gentle stretching as tolerated. F/U prn DoD routine history and physical adult (18 - 64 yrs) Inactive Condition DoD routine pelvic exam Active Condition Do D Cervix Sample Taken For Pap Smear Active Condition DoD Breast mass Active Condition Ambulatory Pharmacy COPD - Chronic obstructive pulmonary disease Active Condition Ambulat ory Pharmacy Primary renal cell carcinoma of left kidney Active Condition Ambulatory Pharmacy Tobacco use Active Condition Ambulatory Pharmacy Medications Combined list of outpatient medications from Department of Defense and Veterans Affairs facilities.Medications provided include 1) outpatient medications from the last 15 months, and 2) patient-reported medications. Medication Details Route Status Patient Instructions Prescription Expires Prescription Number Last Dispense Date Ordering Provider Order Date Order Qty Source albuterol 2.5mg/3mL (0.083%) inhalation soln (3mL) See Instruct tariq, # 270 mL, 6 total refill(s ), Hard Stop Complet ed 05/05/2024 270.0 Ambulat ory Pharmac y ALBUTEROL 90 MCG INH HFAA [8.5 GM] ALBUTERO L 90 MCG INH HFAA [8.5 GM] Start Date: 12/02/20 Status: Ordered Ordered No Facilit y Access albuterol 90 mcg inhaler [8.5g] See Instruct ions, Inhale, # 17 g, 4 total refill(s ), Hard Stop Inhala tion (breat he in) Complet ed 12/24/2023 17.0 Ambulat ory Pharmac y albuterol 90 mcg inhaler [8.5g] See Instruct ions, # 17 g, 6 total refill(s ), Hard Stop Discont inued 02/10/2024 17.0 Ambulat ory Pharmac y albuterol 90 mcg/inh aerosol inhaler 2 puff(s), Inhale, every 4 hr, PRN wheezing , # 8.5 g, 11 total refill(s ), Maintena nce, 8.5g = 1 inhaler, Pharmacy : [facility] Inhala tion (breat he in) Ordered 8.5 6130C-A f-C-375 Th [facility] Albuterol Sulfate (PROVENTIL Eq.) Solution 2.5MG/3ML Inhalation Take or use exactly as directed .Obtain advice for OTCs.For inhalati on. 05/05/2024 [id number] 3 2022 [facility] [place] [place] [place] amoxicillin -clavulanat e 875 mg-125 mg oral tablet 0 total refill(s ) Discont inued 06/22/2024 No Facilit y Access amoxicillin -clavulanat e 875 mg-125 mg oral tablet 1 tab(s), Oral, every 12 hr, X 7 days, # 14 tab(s), 0 total refill(s ), Acute, 06/29/24 2:52:00 PM [employer] V[employer]OR, Pharmacy : [id number], Respirat ory, COPD exacerba tion Oral (given by mouth) Complet ed 06/29/2024 14.0 6130C-A f-C-375 Th Aman Trujillo atorvastati n 20 mg oral tablet atorvast atin 20 mg oral tablet Start Date: 10/06/20 Stop Date: 02/17/24 Status: Disconti nued Discont inued 02/17/2024 No Facilit y Access atorvastati n 20 mg oral tablet 1 tab(s), Oral, Daily, # 90 tab(s), 3 total refill(s ), Maintena nce, Pharmacy : [facility] Oral (given by mouth) Ordered 90.0 6130C-A f-C-375 [facility] [place] Breztri Aerosphere 160 mcg-4.8 mcg-9 mcg/inh [10.7g] = 2 puff(s), Inhale, BID, # 11 g, 6 total refill(s ), Hard Stop Inhala tion (breat he in) Discont inued 02/10/2024 10.7 Ambulat ory Pharmac y Breztri Aerosphere 160 mcg-9 mcg-4.8 mcg/inh inhalation aerosol 2 puff(s), Inhale, BID, # 10.7 g, 11 total refill(s ), Maintena nce, 10.7g = 1 inhaler with 120 metered doses, Pharmacy : [facility] Inhala tion (breat he in) Ordered 10.7 6130C-A f-C-375 [facility] [place] cetirizine 10 mg oral tablet cetirizi ne 10 mg oral tablet Start Date: 10/06/20 Stop Date: 02/17/24 Status: Disconti nued Discont inued 02/17/2024 No Facilit y Access cetirizine 10 mg oral tablet 1 tab(s), Oral, Daily, # 90 tab(s), 3 total refill(s ), Maintena cae, Pharmacy : [facility] Oral (given by mouth) Ordered 90.0 6130C[facility]A f[facility] 100-20 mcg inhaler [4g] See dose instruct ions in comments , # 4 g, 1 total refill(s ), Acute Complet ed 09/27/2023 4.0 Ambulat ory Pharmac y fluticasone 110 mcg/inh aerosol inhaler fluticas one 110 mcg/inh aerosol inhaler Start Date: 12/02/20 Stop Date: 02/17/24 Status: Disconti nued Discont inued 02/17/2024 No Facilit y Access fluticasone 110 mcg/inh aerosol inhaler 2 puff(s), Inhale, BID, # 12 g, 11 total refill(s ), [facility], Pharmacy : [facility] Inhala tion (breat he in) Ordered 12.0 6130C-A f-C-375 Th [facility] [place] fluticasone 50 mcg/inh nasal spray fluticas one 50 mcg/inh nasal spray Start Date: 10/06/20 Stop Date: 02/17/24 Status: Disconti nued Discont inued 02/17/2024 No Facilit y Access fluticasone 50 mcg/inh nasal spray 1 spray(s) , Nostril- Both, Daily, # 15.8 mL, 11 total refill(s ), [facility], Pharmacy : [facility] Nostri l-Both (into the nose) Ordered 15.8 6130C-A f-C-375 Th [facility] [place] fluticasone CFC free 110 mcg/inh inhalation aerosol INHALE 2 PUFFS BY MOUTH TWICE A DAY, # 12 g, 1 total refill(s ), Acute Complet ed 02/04/2023 12.0 Ambulat ory Pharmac y ipratropium -albuterol 20 mcg-100 mcg/inh inhalation aerosol ipratrop ium-albu terol 20 mcg-100 mcg/inh inhalati on aerosol Start Date: 12/02/20 Status: Ordered Ordered No Facilit y Access lisinopril 20 mg oral tablet lisinopr il 20 mg oral tablet Start Date: 10/06/20 Stop Date: 02/17/24 Status: Disconti nued Discont inued 02/17/2024 No Facilit y Access lisinopril 20 mg oral tablet 1 tab(s), Oral, Daily, # 90 tab(s), 3 total refill(s ), [facility], Pharmacy : [facility] Oral (given by mouth) Ordered 90.0 6130C-A f-C-375 Th [facility] [place] predniSONE 20 mg oral tablet 1 tab(s), Oral, Daily, X 5 days, # 5 tab(s), 0 total refill(s ), Acute, Pharmacy : [id number] Oral (given by mouth) Complet ed 06/27/2024 5.0 6130C-A f-C-375 Th [facility] [place] RING (BRAND) 90 MCG INH HFAA [8.5 GM] Take or use exactly as directed .Obtain advice for OTCs.Franklin clifford.For inhalati on. 05/05/2024 [id number] 3 [address] [place] [address] Ron[facility]) Allergies, Adverse Reactions, Alerts Combined list of allergies from Department of Defense and Veterans Affairs facilities. It does not include entries that were removed or entered in error. Substance Category Reaction Severity Reaction type Status Date Reported Comments Source ADHESIVE (ADHESIVE) Allergy to substance (disorder) Rash, Rash or Itch active [address] [place] [address] Ronnie [facility]) LATEX (LATEX) Drug allergy (disorder) Rash, Rash or Itch, Swelling active [address] [place] [address] Ronnie B [facility]) OTHER Drug allergy (disorder) active 6 [place] [address] OTHER {Cla } Drug allergy (disorder) Unknown active [address] [place] [address]) Immunizations Combined list of available immunizations from the Department of Defense and Veterans Affairs facilities. Immunization Series Date Given Administered By Site Reaction Lot Number CVX Code Drug Network Systems Integrator Status Comments Source COVID Vaccine Moderna [facility] [id number] complet ed COVID Vaccine Moderna 06/08/21 Given Ambulat ory Pharmac y SARS-COV-2 (COVID-19) vaccine, mRNA, spike protein, LNP, preservative free, 100 mcg or 50 mcg dose 1 2020 Unknown, Provider [id number] Moderna [employer]. (MOD) complet ed SARS-COV- 2 (COVID-19 ) vaccine, mRNA, spike protein, LNP, preservat rasheed free, 100 mcg or 50 mcg dose DoD influenza, injectable, quadrivalent- pf 2020 Kourtney Arm [id number] complet ed influenza , injectabl e, quadrival ent-pf 04/28/21 Given Ambulat ory Pharmac y COVID Vaccine Moderna 2020 Екатерина Arm [id number] complet ed COVID Vaccine Moderna 04/28/21 Given Ambulat ory Pharmac y Influenza, injectable, quadrivalent, preservative free 1 2020 Unknown, Provider [id number] 150 [facility] (SKB) complet ed Influenza , injectabl e, quadrival ent, preservat rasheed free DoD SARS-COV-2 (COVID-19) vaccine, mRNA, spike protein, LNP, preservative free, 100 mcg or 50 mcg dose 1 2020 Unknown, Provider [id number] Moderna [employer] (MOD) complet ed SARS-COV- 2 (COVID-19 ) vaccine, mRNA, spike protein, LNP, preservat rasheed free, 100 mcg or 50 mcg dose DoD Influenza, inj, MDCK, quadrivalent- pf [facility] [id number] Se[employer] complet ed Influenza , inj, MDCK, quadrival ent-pf 06/23/20 Given Ambulat ory Pharmac y zoster vaccine, inactivated [facility] [id number] GlaxoSmithKli ne complet ed zoster vaccine, inactivat ed 06/23/20 Given Ambulat ory Pharmac y Influenza, injectable, Madin [place] Canine Kidney, preservative free, quadrivalent 1 2019 Unknown, Provider [id number] [employer] (SEQ) complet ed Influenza , injectabl e, Madin [place] Canine Kidney, preservat rasheed free, quadrival ent DoD zoster vaccine recombinant 1 2019 Unknown, Provider [id number] [facility] ([place]) complet ed zoster vaccine recombina nt DoD influenza, injectable, quadrivalent- pf 2019 zzL t Arm [id number] 150 Se[employer]irus complet ed influenza , injectabl e, quadrival ent-pf 08/22/19 Given Ambulat ory Pharmac y Influenza, injectable, quadrivalent, preservative free 1 2019 Unknown, Provider [id number] 150 [employer] (SEQ) complet ed Influenza , injectabl e, quadrival ent, preservat rasheed free DoD influenza, injectable, quadrivalent- pf [address] [facility] [id number] 150 GlaxoSmithKli ne complet ed influenza , injectabl e, quadrival ent-pf 08/10/18 Given Ambulat ory Pharmac y tetanus, diphtheria, acellular pertu is 2018 zzJai ht Arm [id number] GlaxoSmithKli ne complet ed tetanus, diphtheri a, acellular pertussis 08/10/18 Given Ambulat ory Pharmac y tetanus toxoid, reduced diphtheria toxoid, and acellular pertu is vaccine, adsorbed 1 2018 Unknown, Provider [id number] [facility] ([place]) complet ed tetanus toxoid, reduced diphtheri a toxoid, and acellular pertussis vaccine, adsorbed DoD Influenza, injectable, quadrivalent, preservative free 1 2018 Unknown, Provider [id number] 150 [facility] Influenza , injectabl e, quadrival ent, preservat rasheed free DoD tetanus-dipht h toxoids (Td) adult/adol 2002 zBellaef t Arm [id number] sanofi pasteur complet ed tetanus-d iphth toxoids (Td) adult/ado l 03/21/03 Given Ambulat ory Pharmac y tetanus and diphtheria toxoids, adsorbed, preservative free, for adult use (2 Lf of tetanus toxoid and 2 Lf of diphtheria toxoid) 1 2002 Unknown, Provider [id number] Sanofi Pasteur (PMC) complet ed tetanus and diphtheri a toxoids, adsorbed, preservat rasheed free, for adult use (2 Lf of tetanus toxoid and 2 Lf of diphtheri a toxoid) DoD Vital Signs Combined list of inpatient and outpatient Vital Signs from Department of Defense and Veterans Affairs, ranging from 12 months to all on record, depending upon the facility. Vital Sign Value Date Comments Source Respiratory Rate 20br/min 06/22/2024 20:27:00 Ambulatory Pharmacy Systolic Blood Pressure 132mm[Hg] 02/10/2024 19:02:00 Ambulatory Pharmacy Diastolic Blood Pressure 90mm[Hg] 02/10/2024 19:02:00 Ambulatory Pharmacy Mean Arterial Pressure, Calc 104mm[Hg] 02/10/2024 19:02:00 Ambulatory P harmacy Peripheral Pulse Rate 103bpm 02/10/2024 19:02:00 Ambulatory Pharmacy Respiratory Rate 16br/min 02/10/2024 19:02:00 Ambulatory Pharmacy BP Site 02/10/2024 19:02:00 Ambul atory Pharmacy Blood Pressure Manual 02/10/2024 19:02:00 Ambulatory Pharmacy Encounters Combined list of: 1) Encounters from Department of Veterans Affairs facilities going back up to thelast 18 months. 2) Encounters from the Department of Defense facilities going back up to 280 months. Location Location Details Encounter Type Encounter Number Reason For Visit Attending Provider ADM Date DC Date Status Disposition Source [address] [place] [address] Ronnie AUSTEN[facility] Practice Non-GME FHI2) OUTPATIENT [id number] annnual pap KHADAR SAUER 06/10 Released w/o Limitations [address] [place] [address] [facility] [employer] [facility]F amily Practic e Non-GME FHI2) [address] [place] [address] [place] [employer] [facility] Practice Non-GME FHI1) TELE CONSULT [id number] pulled left calf muscle MAY RIVAS 12/[address] [place] [address] Ronnie B [facility])(F amily Practic e Non-GME FHI1) [address] [place] [address] Ronnie B [facility]) OUTPATIENT [id number] pulled muscle rt calf CHIN JULIO 12/21 Released w/o Limitations [address] [place] [address] Ronnie B [facility])(F amily Practic e Non-GME FHI1) [address] [place] [address] Ronnie B [facility]Opt ometry) OUTPATIENT [id number] ROUTINE EYE EXAM HORTENSIA CHEW 08/02 Released w/o Limitations [address] [place] [address] [facility] [employer] [facility]O ptometr y) [address] [place] [address] Ronnie B [facility]Opt ometry) OUTPATIENT [id number] 24-2/io p/HORTENSIA Villanueva 01/06 Released w/o Limitations [address] [place] [address] [place] [employer] [facility]O ptometr y) [address] [place] [address] [place] [employer] [facility] Practice Non-GME FHI1) OUTPATIENT [id number] ANNUAL PAP SMEAR. PH:[phone]*H DUNG JOHNSON 04/10 Released w/o Limitations [address] [place] [address] [place] [employer] [facility]F amily Practic e Non-GME FHI1) [address] [place] [address] Ronnie B [facility]Cellar Supervisor ecology) OUTPATIENT [id number] DUB/emb per Capt.Jose anderson ASHUTSOH MITCHELL Brit 04/12 Released w/o Limitations [employer] [place] [employer] [facility]G ynecolo gy) [address] [place] [address] Ronnie [facility]YCE[employer] [facility])(Cellar Supervisor ecology) TELE CONSULT [id number] Ultraso und results . ASHUTOSH MITCHELL Brit 04/20 [facility] [place] [place] [place]G ynecolo gy) [facility] Ronnie [employer] ([facility] [place] [place]Cellar Supervisor ecology) OUTPATIENT [id number] post coital bleedin g ANABELLA BARNARD 04/26 Released w/o Limitations [facility] [employer] ([facility] [place] [place]G ynecolo gy) [address] [place] [address] [employer] [place] [place] [place]Sco tt Internal Medicine Tm) TELE CONSULT [id number] colpo results ANABELLA BARNARD 05/10[facility] [place] [employer] ([facility]S cott Interna l Medicin e Tm) [facility] [employer] [facility]Cellar Supervisor ecology) TELE CONSULT [id number] Colpo results MEÑO FERNANDEZ Brit 05/[address] [place] [address] Group Ronnie [facility]YCEB ([facility]G ynecolo gy) [facility] Ronnie [employer] ([facility] [place] [place]Cellar Supervisor ecology) TELE CONSULT [id number] Ultraso und results ASHUTOSH MITCHELL Brit 06/[address] [place] [address] Group Ronnie BOYCEB ([facility] [place]G ynecolo gy) [facility] Ronnie [employer] ([facility] [place] [place]Cellar Supervisor ecology) OUTPATIENT [id number] US result and f/u Post coital bleedin BEER Roman 06/01 Released w/o Limitations [facility] [employer] [place]G ynecolo gy) [facility] [employer] ([facility]Sco tt [facility] FAMRES Tm Blue) OUTPATIENT [id number] neck and shoulde r pain... .[phone] TALIA RIDDLE 01/28 Released w/o Limitations [employer] ([facility]S cott [facility] Tm Blue) [facility] Medical [facility] [employer] [employer] [facility]Phy sical Therapy) OUTPATIENT [id number] SHOULDE DARNELL HERNANDEZ 01/30 Released w/o Limitations [facility] [employer] ([facility]P hysical Therapy ) [facility] [place] [employer] ([facility]Phy sical Therapy) OUTPATIENT [id number] DARNELL WATSON 02/07 Released w/o Limitations [facility] Ronnie [employer] ([facility]P hysical Therapy ) [address] [place] [address] [employer] [place] Non-GME FHI2) OUTPATIENT [id number] F/U EVAL FOR MED CONDITI ON ROBERTO CARLOS BROOKS 03/01 Released w/o Limitations [facility] [employer] ([facility]F amily Practic e Non-GME FHI2) [address] [place] [address] [employer] [facility] Practice Non-GME FHI2) OUTPATIENT [id number] inflamm ed mole on lt buttock , swollen [phone] BUDDY DELEON 04/26 Released w/o Limitations [address] [place] [address] [employer] [employer] [facility])(F amily Practic e Non-GME FHI2) [address] [place] [address] [employer] [facility]Butch matology) OUTPATIENT [id number] DERMATO LOGY - SKIN CONDITI ON BENJAMIN HADLEY 05/02 Released w/o Limitations [address] [place] [address] [employer] ([facility]D ermatol ogy) [address] [place] [address] [employer] [facility]Butch matology) TELE CONSULT [id number] Lab Results REECE BECKETT 05/[address] [place] [address] [employer] [facility]D ermatol ogy) [address] [place] [address] [employer] [facility] Non-GME FHI1) OUTPATIENT [id number] congest ion.... [id number] SERENITY DIXON 06/12 Released w/o Limitations [address] [place] [address] [employer] [employer] [facility])(F amily Practic e Non-GME FHI1) [address] [place] [address] [employer] [facility]Sco tt [facility] Team 3) OUTPATIENT [id number]# pap SERENITY DIXON 11/21 Released w/o Limitations [address] [place] [address] [employer] ([facility] Team 3) [employer] ([facility]Opt ometry) OUTPATIENT [id number]# well TIM WARD 12/03 Released w/o Limitations [employer] ([facility]O ptometr y) [employer] ([facility]Sco tt [facility] Team 3) TELE CONSULT [id number] No acute appts/N delroyjulian VANESSA DE LA PAZ 05/05 [employer] ([facility] [facility] Team [facility] [employer] [place] [place] Team 3) TELE CONSULT [id number] Audiono carissa - Rad Results STANLEY LOBO 09/19 [employer] [place] [place] 3) [facility] [employer] [place] [place]Fam ivy Med Tm B Non-AD BCC) OUTPATIENT [id number] Sinus infecti on [id number] BENJAMIN WIN 05/29 Released w/o Limitations [employer] [place] [place]F amily Med Tm B Non-AD BCC) [employer] [place] [place]War rior Op Med Cln Tm A Ad) OUTPATIENT [id number] Sinus [id number] ROBERTO CARLOS BROOKS 06/29 Released w/o Limitations [employer] [place] [place]W arrior Op Med Cln Tm A Ad) [employer] [place] [place]Sco tt [facility] Team 3) OUTPATIENT [id number] sinus.. [id number] DIGNA RICHARD 08/27 Released w/o Limitations [employer] [place] [place] 3) [facility] [employer] [place] [place] ecology) OUTPATIENT [id number] well woman [id number] EMILIANO VANN 11/13 Released w/o Limitations [employer] [place] [place]G ynecolo gy) [facility] [employer] [place] [place] ecology) TELE CONSULT [id number] Discuss u/s results EMILIANO VANN 11/20 [facility] [employer] [place] [place]G ynecolo gy) [employer] [place] [place] ecology) OUTPATIENT [id number] [facility] - [id number] EMILIANO VANN 11/24 Released w/o Limitations [employer] [place] [place]G ynecolo gy) [employer] [place] [place]Ob/ Cellar Supervisor) TELE CONSULT [id number] test results EMILIANO VANN 12/09 [facility] [employer] ([facility] [place]O b/Cellar Supervisor) [facility] Medical [facility] [employer] ([facility] [place] ecology) OUTPATIENT [id number] CONSULT FOR ABLATIO N PER SHONNA ON HUMBLE PRESTON Iglesia 01/26 Released w/o Limitations [facility] [employer] [place] [place]G ynecolo gy) [facility] Medical [facility] [employer] ([facility] [place]Ob/ Cellar Supervisor) TELE CONSULT [id number] change appoint ment HELADIOSHAR HUMBLE Iglesia 02/17 [facility] [employer] ([facility] [place]O b/Cellar Supervisor) [facility] Medical [facility] [employer] ([facility] [place] ecology) OUTPATIENT [id number] novasur e ablatio n - [id number] HUMBLE PRESTON Iglesia 03/12 Released w/o Limitations [address] [place] [address] [employer] ([facility] [place]G ynecolo gy) [address] [place] [address] [employer] ([facility] [place]Ob/ Cellar Supervisor) TELE CONSULT [id number] Call back Dx Hyst and Novasur e Uterine Ablatio n KARINA PEPPER 03/15 [facility] [employer] [place] [place]O b/Cellar Supervisor) [facility] Medical [facility] [employer] [place] [place] Super[employer] ecology) OUTPATIENT [id number] f/u novasur e ablatio n - [id number] HELADIOHUMBLE MYLES Iglesia 04/06 Released w/o Limitations [address] [place] [address] [employer] ([facility] [place]G ynecolo gy) [address] [place] [address] [employer] ([facility] [place]War rior Op Med Cln Tm A Ad) TELE CONSULT [id number] Notes Entered by: MILDRED BEJARANO 07 Feb 2013 1341 ------- ------- ------- ------- -- Congest aziza/Dr. Maher/ KARISHMA SCHMIDT 02/07 Referred for Appointment [address] [place] [address])(W arrior Op Med Cln Tm A Ad) [address] [place] [address])(War rior Op Med Cln Tm A Ad) OUTPATIENT [id number] sore throat JESS DE LA ROSA 02/08 Released w/o Limitations [address] [place] [address])(W arrior Op Med Cln Tm A Ad) [address] [place] [address])(War rior Op Med Cln Tm A Ad) TELE CONSULT [id number] Notes Entered by: JESS DE LA ROSA 26 Feb 2013 0759 ------- ------- ------- ------- -- Thyroid nodules JESS DE LA ROSA 02/[address] [place] [address])(W arrior Op Med Cln Tm A Ad) [address] [place] [address])(War rior Op Med Cln Tm A Ad) OUTPATIENT [id number] spot under skin on left hand; moves around under skin MICHELE MAHER 03/22 Released w/o Limitations [address] [place] [address])(W arrior Op Med Cln Tm A Ad) [address] [place] [address])(War rior Op Med Cln Tm A Ad) TELE CONSULT [id number] Notes Entered by: JESS DE LA ROSA 26 Apr 2013 1509 ------- ------- ------- ------- -- Need to see patient tomorro w if at all RAMIREZ Klein 04/[address] [place] [address])(W arrior Op Med Cln Tm A Ad) [address] [place] [address])(War rior Op Med Cln Tm A Ad) TELE CONSULT [id number] Notes Entered by: AIDA ROMERO 10 May 2013 0951 ------- ------- ------- ------- -- Network Results -ENDOCR INOLOGY /ONCOLO GY 3 MICHELE MAHER 05/[address] [place] [address] Ronnie MORENO [facility]W arrior Op Med Cln Tm A Ad) [address] [place] [address] Group [employer] MORENO [facility]War rior Op Med Cln Tm A Ad) OUTPATIENT [id number] ysabel yang-denisse h on arms & stomach otc meds not working MICHELE MAHER 06/07 Released w/o Limitations [address] [place] [address] Group [employer] MORENO ([facility] [place]W arrior Op Med Cln Tm A Ad) [address] [place] [address] Ronnie MORENO [facility]Fam ivy Med Tm B Non-AD BCC) TELE CONSULT [id number] Notes Entered by: YEYO PRYOR 21 Jun 2013 1445 ------- ------- ------- ------- -- Network Results -SURGER Y 3 MICHELE MAHER 06/[address] [place] [address] Ronnie MORENO [facility]F amily Med Tm B Non-AD BCC) [address] [place] [address] Ronnie MORENO [facility]Njo [facility] Team 3) TELE CONSULT [id number] Notes Entered by: JESS DE LA ROSA 18 Sep 2013 2247 ------- ------- ------- ------- -- F/u on thyroid US JESS DE LA ROSA 09/[address] [place] [address] Ronnie BOYCEB [facility]S raquel [facility] Team 3) [address] [place] [address] Ronnie BOYCEB [facility]Njo tt [facility] Team 3) TELE CONSULT [id number] Notes Entered by: JESS DE LA ROSA 30 Sep 2013 1711 ------- ------- ------- ------- -- F/u on US JESS DE LA ROSA 09/[address] [place] [address] Ronnie AUSTENB [facility]S cott [facility] Team 3) [address] [place] [address] Ronnie MORENO [facility]Cellar Supervisor ecology) OUTPATIENT [id number] Annual WWE OLGA LEYVA 03/04 Released w/o Limitations [address] [place] [address])(G ynecolo gy) [address] [place] [address])(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 ecology) TELE CONSULT [id number] Notes Entered by: Brit LEYVA 25 Mar 2014 1202 ------- ------- ------- ------- -- Elevate d LDL/lip ids FEDE HSIEH 03/[address] [place] [address] Ronnie [facility])(G ynecolo gy) [address] [place] [address])(Fam ivy Med Tm B Non-AD BCC) TELE CONSULT [id number] Notes Entered by: JESS DE LA ROSA 02 Apr 20141 ------- ------- ------- ------- -- Needs f/u JESS DE LA ROSA 04/[address] [place] [address] Ronnie [facility])(F amily Med Tm B Non-AD BCC) [address] [place] [address] Ronnie [facility])(War rior Op Med Cln Tm A Ad) OUTPATIENT [id number] chest congest ion/ coughin g/ sinus pressur e- [id number] SEBASTIÁN CORBIN 06/10 Released w/o Limitations [address] [place] [address] Ronnie B [facility]W arrior Op Med Cln Tm A Ad) [address] [place] [address])(Fam ivy Med Tm B Non-AD BCC) TELE CONSULT [id number] Notes Entered by: ANNIA STEPHENS 17 Jun 2014 1503 ------- ------- ------- ------- -- Ysabel [facility] Team 2: Office Message MICHELE MAHER 06/[address] [place] [address] Ronnie B [facility])(F amily Med Tm B Non-AD BCC) [address] [place] [address] Ronnie B [facility]Fam ivy Med Tm B Non-AD BCC) OUTPATIENT [id number] Chest congest ion, non-pro ductive cough, facial pressur e - [id number] ALMAS, TRINI G 05/30 Released w/o Limitations [address] [place] [address] Ronnie MORENO [facility]F amily Med Tm B Non-AD BCC) [address] [place] [address] Ronnie MORENO [facility]Min or Procedure Clinic) OUTPATIENT [id number] 3rd floor [employer]/pr eop screeni ng leninos copy ARTURO RESENDIZ 06/30 Released w/o Limitations [address] [place] [address] Ronnie MORENO [facility]M inor Procedu re Clinic) [address] [place] [address] Ronnie MORENO [facility])(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 Supervisor ecology) OUTPATIENT [id number] WWE 334.621 1 OLGA LEYVA 09/03 Released w/o Limitations [address] [place] [address] Ronnie MORENO [facility]G ynecolo gy) [address] [place] [address] Ronnie TIFFANIE [facility]Ob/ Cellar Supervisor) TELE CONSULT [id number] Notes Entered by: Brit LEYVA 05 Sep 2015 1602 ------- ------- ------- ------- -- Lipids/ Vit D level OLGA LEYVA 09/[address] [place] [address] Ronnie MORENO ([facility] [place] [place]O b/Cellar Supervisor) [address] [place] [address] Ronnie MORENO [facility]Fam ivy Med Tm B Non-AD BCC) OUTPATIENT [id number] f/u on Thyroid 334.621 1 BNENIE MCLEOD 09/11 Released w/o Limitations [address] [place] [address] Ronnie MORENO [place] [place]F amily Med Tm B Non-AD BCC) [address] [place] [address] Ronnie MORENO [facility]Fam ivy Med Tm B Non-AD BCC) TELE CONSULT [id number] Notes Entered by: JAYRO CROUCH 12 Sep 2015 1503 ------- ------- ------- ------- -- US results DELFINO TOSCANO 09/12 Referred for Appointment [address] [place] [address] Ronnie MORENO [facility]F amily Med Tm B Non-AD BCC) [address] [place] [address] Ronnie MORENO [facility]Opt ometry) OUTPATIENT [id number] Routine Eye Exam 334.621 1 CASEY POTTS 10/23 Released w/o Limitations [address] [place] [address] [employer] [place] [place] [place]O ptometr y) [address] [place] [address] Ronnie B [facility] ivy Med Tm B Non-AD BCC) OUTPATIENT [id number] right arm, shoulde r pain//3 34.6211 JARRETZOËIN LINN 12/25 Released w/o Limitations [address] [place] [address] Ronnie B [facility] amily Med Tm B Non-AD BCC) [address] [place] [address] Ronnie B [facility] ivy Med Tm B Non-AD BCC) OUTPATIENT [id number] cough, congest ion, green mucus CHELSIE JAEGER 05/06 Released w/o Limitations [address] [place] [address] Ronnie B [facility]F amily Med Tm B Non-AD BCC) [address] [place] [address] Ronnie B [facility] ivy Med Tm B Non-AD BCC) OUTPATIENT [id number] sore throat, product rasheed cough, headach e, head congest ion/618 .334.62 11 ARTURO WHEAT LINN 05/24 Released w/o Limitations [address] [place] [address] Ronnie BOYCEB ([facility] [place] [place] amily Med Tm B Non-AD BCC) [address] [place] [address] Ronnie B [facility] ivy Med Tm B Non-AD BCC) TELE CONSULT [id number] Notes Entered by: JAYRO CROUCH 18 Jun 2016 1226 ------- ------- ------- ------- -- Lab results REECE REID 06/18 Referred for Appointment [address] [place] [address] Ronnie BOYCEB [facility] amily Med Tm B Non-AD BCC) [address] [place] [address] Ronnie B [facility] ivy Med Tm B Non-AD BCC) TELE CONSULT [id number] Notes Entered by: RAMANA FLOWERS 23 Jun 2016 1433 ------- ------- ------- ------- -- Network results Pulmona ry/Sammy p Nate jordan 016 TRINI HENDRICKSON 06/[address] [place] [address] Ronnie [facility])(F amily Med Tm B Non-AD BCC) [address] [place] [address] Ronnie [facility])(Fam ivy Med Tm B Non-AD BCC) TELE CONSULT [id number] Notes Entered by: RAMANA FLOWERS 03 Aug 2016 0806 ------- ------- ------- ------- -- Network results Pulmona ry/Slee p Medicin e 016 SHANICE CHONG 08/[address] [place] [address])(F amily Med Tm B Non-AD BCC) [address] [place] [address])(War rior Op Med Cln Tm A Ad) TELE CONSULT [id number] Notes Entered by: Jaxson PANTOJA 20 Jan 2017 1124 ------- ------- ------- ------- -- Network Results Pulmona ry 7 TANNA MORENO 01/[address] [place] [address])(W arrior Op Med Cln Tm A Ad) [address] [place] [address])(Fam ivy Med Tm B Non-AD BCC) TELE CONSULT [id number] Notes Entered by: REJI CHILEL 31 Jan 2017 0845 ------- ------- ------- ------- -- F/u hospita lizatio n/Colmeme lucy/618 .334.62 11/clALONDRA Moreno 01/31 Referred for Appointment [address] [place] [address] Ronnie [facility])(F amily Med Tm B Non-AD BCC) [address] [place] [address])(Fam ivy Med Tm B Non-AD BCC) OUTPATIENT [id number] f/u after inpt stay, COPD Exacerb atARTURO Razo 01/31 Released w/o Limitations [address] [place] [address] Ronnie [facility])(F amily Med Tm B Non-AD BCC) [address] [place] [address])(Fam ivy Med Tm B Non-AD BCC) TELE CONSULT [id number] Notes Entered by: Erica LYNCH 21 Jun 2017 1354 ------- ------- ------- ------- -- Network Results Pulmona ry 05/23/17 BENNIE SANTOS 06/[address] [place] [address])(F amily Med Tm B Non-AD BCC) [address] [place] [address])(Fam ivy Med Tm B Non-AD BCC) TELE CONSULT [id number] Notes Entered by: NAHED CARLTON 05 Jul 2017 0851 ------- ------- ------- ------- -- Request for Lab Order - Appt Jul / alejandra e / - sgj ROSA ISELA RIVERA 07/[address] [place] [address])(F amily Med Tm B Non-AD BCC) [address] [place] [address])(Med ication Refill Clinic) TELE CONSULT [id number] Notes Entered by: NAHED CARLTON 05 Jul 2017 0856 ------- ------- ------- ------- -- Med Bridge - Appt Jul Lukasz e / - sgj KELSI JULIO 07/[address] [place] [address])(M edicayony on Refill Clinic) [address] [place] [address])(Fam ivy Med Tm B Non-AD BCC) OUTPATIENT [id number] General check up / medicat ions / lab results [id number] BENNIE MCLEOD 07/19 Released w/o Limitations [address] [place] [address])(F amily Med Tm B Non-AD BCC) [address] [place] [address])(Fam ivy Med Tm B Non-AD BCC) TELE CONSULT [id number] Notes Entered by: JUMA TORRES 20 Jul 2017 1040 ------- ------- ------- ------- -- Network Results : Pulmono logkaitlynn BENNIE MCLEOD 07/20 [employer] [facility]F amily Med Tm B Non-AD BCC) [employer] [place]Fam ivy Med Tm B Non-AD BCC) OUTPATIENT [id number] f/u BP BENNIE MCLEOD 08/16 Released w/o Limitations [employer] ([facility]F amily Med Tm B Non-AD BCC) [facility] [employer] ([facility]Fam ivy Med Tm B Non-AD BCC) TELE CONSULT [id number] Notes Entered by: NAHED CARLTON 08 Aug 2018 1103 ------- ------- ------- ------- -- Med Bridge - Appt Aug / Orestes / - TANA Ramirez 08/08 Referred for Appointment [employer])(F amily Med Tm B Non-AD BCC) [address] [place] [address] Group Ronnie [facility])(Fam ivy Med Tm B Non-AD BCC) TELE CONSULT [id number] Notes Entered by: NAHED CARLTON 08 Aug 2018 1107 ------- ------- ------- ------- -- Lab Order Request - Appt Aug / Orestes / - TANA Ramirez 08/08 Referred for Appointment [employer] [place]F amily Med Tm B Non-AD BCC) [facility] [employer] ([facility]Fam ivy Med Tm B Non-AD BCC) OUTPATIENT [id number] General check up / medicat ions / lab results [id number] SACHIN AARON 08/10 Released w/o Limitations [facility] [employer] [place]F amily Med Tm B Non-AD BCC) [address] [place] [address] Group Ronnie [facility])(War rior Op Med Cln Tm A Ad) TELE CONSULT [id number] Notes Entered by: MAURO BROWNE 21 Aug 2019 0741 ------- ------- ------- ------- -- Med Renewal - Lab Test Request / Clay kay/ - POLLO Donnelly 08/21 Medication Refill Forwarded [address] [place] [address])(W arrior Op Med Cln Tm A Ad) [address] [place] [address])(War rior Op Med Cln Tm A Ad) OUTPATIENT [id number] Annual Check Up [phone] GRACIELA PEREYRA 08/21 Released w/o Limitations [address] [place] [address])(W arrior Op Med Cln Tm A Ad) [address] [place] [address])(War rior Op Med Cln Tm A Ad) TELE CONSULT [id number] Notes Entered by: GRACIELA SALAS 04 Sep 2019 1742 ------- ------- ------- ------- -- follow up imaging s AYAH LANGSTON 09/04 Released to [employer] [address] [place] [address])(W arrior Op Med Cln Tm A Ad) [address] [place] [address])(War rior Op Med Cln Tm A Ad) TELE CONSULT [id number] Notes Entered by: GRACIELA SALAS 23 Apr 2020 1419 ------- ------- ------- ------- -- follow up labs HUMBLE WHITTEN 04/23 Other Not Elsewhere Classified [address] [place] [address])(W arrior Op Med Cln Tm A Ad) [address] [place] [address])(Sco tt [facility] Fam Res Tm Green) TELE CONSULT [id number] Notes Entered by: RENUKA WELSH 22 Jul 2020 0849 ------- ------- ------- ------- -- SX-sinu s pressur e/cough / [id number] teri KRISTEL SAUCEDA Brit 07/22 Referred for Appointment [address] [place] [address] Ronnie MORENO [facility]S cott [facility] Fam Res Tm Green) [address] [place] [address] Ronnie MORENO [facility])(Sco tt [facility] Fam Res Tm Green) OUTPATIENT [id number] virtual , cough, sinus pressur e, hoarse LOPEZ GOMEZ N 07/22 Released w/o Limitations [address] [place] [address] Ronnie MORENO [facility])(S cott [facility] Fam Res Tm Green) [address] [place] [address] Ronnie MORENO [facility])(Sco tt [facility] Fam Res Tm Green) TELE CONSULT [id number] Notes Entered by: VANI HAMILTON 26 Sep 2020 0903 ------- ------- ------- ------- -- Lab Request / [id number] RODY SAUCEDAUlises Perea 09/26 Other Not Elsewhere Classified [address] [place] [address] Ronnie MORENO [facility]S [facility] Fam Res Tm Green) [address] [place] [address] Ronnie MORENO [facility])(Sco tt [facility] Fam Res Tm Green) OUTPATIENT [id number] F2F - Annual Physica l, LOPEZ GOMEZ N 10/03 Released w/o Limitations [address] [place] [address] Ronnie MORENO [facility])(S cott [facility] Fam Res Tm Green) [address] [place] [address] Ronnie MORENO [facility])(Sco tt [facility] FAMRES Tm Blue) TELE CONSULT [id number] Notes Entered by: SA RICH MELENDREZ 09 Oct 2020 0741 ------- ------- ------- ------- -- Pt's mammogr am was inconcl usive due to density of normal breast tissue. PEDRO MELENDREZ 10/09 Released to Self [employer] [address] [place] [address] Ronnie BOYCEJhon [facility])(S [facility] FAMRES Tm Blue) [address] [place] [address] Ronnie MORENO [facility])(Sco tt [facility] Fam Res Tm Green) TELE CONSULT [id number] Notes Entered by: ANNE MARIE MATTHEWS 01 Jul 2021 0817 ------- ------- ------- ------- -- Multi I Sx Swollen , Painful Rt Shoulde r/Marie/ KRISTEL SAUCEDA Brit 07/01 Referred for Appointment [address] [place] [address] Ronnie MORENO [facility])(S cott [facility] Fam Res Tm Green) [address] [place] [address] Ronnie MORENO [facility])(Sco tt [facility] Fam Res Tm Green) OUTPATIENT [id number] eval of right shoulde r pain since 06DEC LE OLIVEROS 07/01 Released w/o Limitations [address] [place] [address] Ronnie MORENO [facility])(S cott [facility] Fam Res Tm Green) [address] [place] [address] Ronnie MORENO [facility])(Sco tt [facility] Fam Res Tm Green) TELE CONSULT [id number] Notes Entered by: MAURO BROWNE 05 Nov 2021 1016 ------- ------- ------- ------- -- Routine Lab Test Request / Marie/ KRISTEL SAUCEDA Brit 11/05 Other Not Elsewhere Classified [address] [place] [address] Ronnie MORENO [facility]S cott [facility] Fam Res Tm Green) [address] [place] [address] Ronnie MORENO [facility])(Sco tt [facility] Fam Res Tm Green) OUTPATIENT [id number] F2F - Routine Check - Med Renewal s PEDRO MELENDREZ 11/05 Released w/o Limitations [address] [place] [address] Ronnie MORENO [facility]S cott [facility] Fam Res Tm Green) [address] [place] [address] Ronnie MORENO [facility])(Cellar Supervisor ecology) OUTPATIENT [id number] WWE SUSIE AJ 12/09 Released w/o Limitations [address] [place] [address] Ronnie MORENO [facility])(G ynecolo gy) [address] [place] [address] Ronnie Jhon [facility])(OFM C Proc Clinic) OUTPATIENT [id number] SKIN CLINIC/ SKIN EXAM LUIS ARMANDO LARES 12/17 Released w/o Limitations [address] [place] [address] Group Ronnie MORENO ([facility]O [facility]) [address] [place] [address] Ronnie MORENO ([facility]Sco tt [facility] Res Tm Green) TELE CONSULT [id number] Notes Entered by: MAY LANG 24 Dec 2021 0854 ------- ------- ------- ------- -- path follow up MAY LANG 12/[address] [place] [address] [place]ENO [place] [place] [facility] [place]) 6130C-Af- C-375Th Medgrp-Sc rut Care Not Rendered [phone] KRUNAL ANGELA SAVITA 03/27 Discharge Disposition: Home or Self Care 6130C-A f-C-375 Th Medgrp- Ronnie 6130C-Af- C-375Th Medgrp-Sc rut Clinic [id number] Chronic obstruc tive pulmona ry disease , unspeci fied,Anthony beltrán, unspeci fied OSCAR GIRON 06/22 Discharge Disposition: Home or Self Care 6130C-A f-C-375 Th Medgrp- Ronnie 6130C-Af- C-375Th Medgrp-Sc rut Between Visit [id number] 07/13 Discharge Disposition: Home or Self Care 6130C-A f-C-375 Th Medgrp- Ronnie 6130C-Af- C-375Th Medgrp-Sc rut Clinic [id number] 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 Procedure Procedure Type Code Date Perfomer Comments Sourc e TANGENTIAL BIOPSY OF SKIN (EG, SHAVE, SCOOP, SAUCERIZE, CURETTE); SINGLE LESION 12/18/2021 DoD SCREENING PAPANICOLAOU SMEAR; OBTAINING, PREPARING AND CONVEYANCE OF CERVICAL OR VAGINAL SMEAR TO LABORATORY 12/15/2021 DoD ACUPUNCTURE, 1 OR MORE NEEDLES; WITHOUT ELECTRICAL STIMULATION, INITIAL 15 MINUTES OF PERSONAL ONE-ON-ONE CONTACT WITH THE PATIENT 07/01/2021 DoD WAIVER SERVICES; NOT OTHERWISE SPECIFIED (NOS) 07/22/2020 DoD TELE ASSESS & MGT SRV PROV QUAL NONPHYS HLTH CARE PRO TO EST PAT,PARENT,GUARD NOT ORIG REL ASSESS & MGT SRV PROV W/IN PREV 7 DAYS NOR LEAD ASSESS & MGT SRV/PX W/IN NXT 24 HR/SOON APT;5-10 MIN MED DIS 08/21/2019 DoD TELE ASSESS & MGT SRV PROV QUAL NONPHYS HLTH CARE PRO TO EST PAT,PARENT,GUARD NOT ORIG REL ASSESS & MGT SRV PROV W/IN PREV 7 DAYS NOR LEAD ASSESS & MGT SRV/PX W/IN NXT 24 HR/SOON APT;5-10 MIN MED DIS 07/05/2017 DoD NONINVASIVE EAR OR PULSE OXIMETRY FOR OXYGEN SATURATION; SINGLE DETERMINATION 02/01/2017 DoD TELE ASSESS & MGT SRV PROV QUAL NONPHYS HLTH CARE PRO TO EST PAT,PARENT,GUARD NOT ORIG REL ASSESS & MGT SRV PROV W/IN PREV 7 DAYS NOR LEAD ASSESS & MGT SRV/PX W/IN NXT 24 HR/SOON APT;5-10 MIN MED DIS 01/31/2017 DoD ARTHROCENTESIS, ASPIRATION AND/OR INJECTION, MAJOR JOINT OR BURSA (EG, SHOULDER, HIP, KNEE, SUBACROMIAL BURSA); WITHOUT ULTRASOUND GUIDANCE 12/29/2015 DoD DETERMINATION OF REFRACTIVE STATE 10/24/2015 DoD TELE ASSESS & MGT SRV PROV QUAL NONPHYS HLTH CARE PRO TO EST PAT,PARENT,GUARD NOT ORIG REL ASSESS & MGT SRV PROV W/IN PREV 7 DAYS NOR LEAD ASSESS & MGT SRV/PX W/IN NXT 24 HR/SOON APT;5-10 MIN MED DIS 09/12/2015 DoD COLORECTAL CANCER SCREENING; COLONOSCOPY ON INDIVIDUAL NOT MEETING CRITERIA FOR HIGH RISK 07/25/2015 DoD HOLDING CHAMBER OR SPACER FOR USE WITH AN INHALER OR NEBULIZER; WITHOUT MASK 06/10/2014 DoD SCREENING PAPANICOLAOU SMEAR; OBTAINING, PREPARING AND CONVEYANCE OF CERVICAL OR VAGINAL SMEAR TO LABORATORY 03/04/2014 DoD TELE ASSESS & MGT SRV PROV QUAL NONPHYS HLTH CARE PRO TO EST PAT,PARENT,GUARD NOT ORIG REL ASSESS & MGT SRV PROV W/IN PREV 7 DAYS NOR LEAD ASSESS & MGT SRV/PX W/IN NXT 24 HR/SOON APT;5-10 MIN MED DIS 02/07/2013 DoD HYSTEROSCOPY, SURGICAL; WITH ENDOMETRIAL ABLATION (EG, ENDOMETRIAL RESECTION, ELECTROSURGICAL ABLATION, THERMOABLATION) 03/12/2011 DoD GONADOTROPIN, CHORIONIC (HCG); QUALITATIVE 11/24/2010 [facility] SCREENING PAPANICOLAOU SMEAR; OBTAINING, PREPARING AND CONVEYANCE OF CERVICAL OR VAGINAL SMEAR TO LABORATORY 11/13/2010 DoD NONINVASIVE EAR OR PULSE OXIMETRY FOR OXYGEN SATURATION; SINGLE DETERMINATION 08/27/2010 [facility] SCANNING COMPUTERIZED OPHTHALMIC DIAGNOSTIC IMAGING, POSTERIOR SEGMENT, (EG, SCANNING LASER) WITH INTERPRETATION AND REPORT, UNILATERAL 12/03/2008 DoD SCREENING PAPANICOLAOU SMEAR; OBTAINING, PREPARING AND CONVEYANCE OF CERVICAL OR VAGINAL SMEAR TO LABORATORY 11/21/2008 [facility] BIOPSY OF SKIN, SUBCUTANEOUS TISSUE AND/OR MUCOUS MEMBRANE (INCLUDING SIMPLE CLOSURE), UNLESS OTHERWISE LISTED; SINGLE LESION 05/02/2008 [facility] APPLICATION OF A MODALITY TO 1 OR MORE AREAS; DIATHERMY (EG, MICROWAVE) 02/08/2008 [facility] APPLICATION OF A MODALITY TO 1 OR MORE AREAS; ULTRASOUND, EACH 15 MINUTES 01/31/2008 [facility] ENDOMETRIAL SAMPLING (BIOPSY) WITH OR WITHOUT ENDOCERVICAL SAMPLING (BIOPSY), WITHOUT CERVICAL DILATION, ANY METHOD (SEPARATE PROCEDURE) 04/26/2007 DoD SCREENING PAPANICOLAOU SMEAR; OBTAINING, PREPARING AND CONVEYANCE OF CERVICAL OR VAGINAL SMEAR TO LABORATORY 04/10/2007 [facility] GONIOSCOPY (SEPARATE PROCEDURE) 01/06/2007 [facility] DETERMINATION OF REFRACTIVE STATE 08/02/2006 [facility] DETERMINATION OF REFRACTIVE STATE 07/10/2003 DoD No data available for this section Ambulatory Pharmacy Social History Combined list of available smoking, tobacco, and other social history from Department of Defense and Veterans Affairs facilities. Social History Type Response Date Comment Sourc e Female 06/16/2021 Ambulatory Pha rmacy This section is an empty social history section. DoD Tobacco Cigarette use: Never-cigarette user. Other Tobacco use: Never-other tobacco user (not cigarettes). Ambulatory Pharma cy Sexual Orientation Ambula tory Pharmacy Gender identity Ambulator y Pharmacy Assessment and Plan Combined list of future care activities from Department of Defense and Veterans Affairs facilities (e.g., assessment and plan notes, appointments, orders, and referrals). Additional future care activities may be listed in the Plan of Care section. Result Assessment and Plan Date Source Assessment and Plan Extracted from:Title : Ambulatory Patient Education Author: KIM MARIN MD Date: 07/27/24 Pulmonary Medicine COPD and Physical Activity Chronic obstructive pulmonary disease (COPD) is a long-term, or chronic, condition that affects the lungs. COPD is a general term that can be used to describe many problems that cause inflammation of the lungs and limit airflow. These conditions include chronic bronchitis and emphysema. The main symptom of COPD is shortness of breath, which makes it harder to do even simple tasks. This can also make it harder to exercise and stay active. Talk with your health care provider about treatments to help you breathe better and actions you can take to prevent breathing problems during physical activity. What are the benefits of exercising when you have COPD? Exercising regularly is an important part of a healthy lifestyle. You can still exercise and do physical activities even though you have COPD. Exercise and physical activity improve your shortness of breath by increasing blood flow (circulation). This causes your heart to pump more oxygen through your body. Moderate exercise can: Improve oxygen use. Increase your energy level. Help with shortness of breath. Strengthen your breathing muscles. Improve heart health. Help with sleep. Improve your self-esteem and feelings of self-worth. Lower depression, stress, and anxiety. Exercise can benefit everyone with COPD. The severity of your disease may affect how hard you can exercise, especially at first, but everyone can benefit. Talk with your health care provider about how much exercise is safe for you, and which activities and exercises are safe for you. What actions can I take to prevent breathing problems during physical activity? Sign up for a pulmonary rehabilitation program. This type of program may include: ? Education about lung diseases. ? Exercise classes that teach you how to exercise and be more active while improving your breathing. This usually involves: ? Exercise using your lower extremities, such as a stationary bicycle. ? About 30 minutes of exercise, 2 to 5 times per week, for 6 to 12 weeks. ? Strength training, such as push-ups or leg lifts. ? Nutrition education. ? Group classes in which you can talk with others who also have COPD and learn ways to manage stress. If you use an oxygen tank, you should use it while you exercise. Work with your health care provider to adjust your oxygen for your physical activity. Your resting flow rate is different from your flow rate during physical activity. How to manage your breathing while exercising While you are exercising: Take slow breaths. Pace yourself, and do nottry to go too fast. Purse your lips while breathing out. Pursing your lips is similar to a kissing or whistling position. If doing exercise that uses a quick burst of effort, such as weight lifting: ? Breathe in before starting the exercise. ? Breathe out during the hardest part of the exercise, such as raising the weights. Where to find support You can find support for exercising with COPD from: Your health care provider. A pulmonary rehabilitation program. Your local health department or community health programs. Support groups, either online or in-person. Your health care provider may be able to recommend support groups. Where to find more information You can find more information about exercising with COPD from: [place] [employer]: lung.org COPD Foundation: copdfoundation.org Contact a health care provider if: Your symptoms get worse. You have nausea. You have a fever. You want to start a new exercise program or a new activity. Get help right away if: You have chest pain. You cannot breathe. These symptoms may represent a serious problem that is an emergency. Do not wait to see if the symptoms will go away. Get medical help right away. Call your local emergency services (911 in the [place] Do not drive yourself to the hospital. Summary COPD is a general term that can be used to describe many different lung problems that cause lung inflammation and limit airflow. This includes chronic bronchitis and emphysema. Exercise and physical activity improve your shortness of breath by increasing blood flow (circulation). This causes your heart to provide more oxygen to your body. Contact your health care provider before starting any exercise program or new activity. Ask your health care provider what exercises and activities are safe for you. This information is not intended to replace advice given to you by your health care provider. Make sure you discuss any questions you have with your health care provider. Document Revised: 05/12/2021 Document Reviewed: 05/12/2021 Elsevier Patient Education ? 2023 [employer] Extracted from:Title: FM: virtual Referral Author: KIM MARIN MD Date: 07/27/24 1.?Renal mass ?Incidental?renal mass,?acute, asymptomatic -Message sent to?Mrs. Hennessy, and?nurse Cyndi for referral modification -Appointment with Dr. Whyte with [facility] [place] next week Follow-up PRN ? ? 2.?COPD - Chronic obstructive pulmonary disease ?Acute exacerbation requiring hospitalization Improving, no residual symptoms Saw pulmonology 07/26,?good to go on inhalers/nebulizers/oxygen RTC PRN ? ? Capt Kim Marin MD Semaphore Operator?PGY-3 [facility]/ [address] [place] [address] LISETTE [place] ? Staffed By: Sameer ? the above note has been dictated partially or in totality with the assistance of??Accera dictation software.??While it was proofread for errors, there may still be grammatical and dictation errors. ? Addendum by COLLEEN RIVERA MD on July 27, 2024 09:57:42 ICE CREAM VENDOR I certify that I was present for case discussion in the Family Medicine preceptor room at the time of this encounter. I have reviewed the note and agree with the findings, assessment, and plan except as I have documented below. Follow up as listed. All labs/imaging/consults to be followed by the ordering provider. ? If renal mass, may benefit from nephrology consult. Unable to view OSH results and reccs so should send message to admin team to obtain records. ? Maj Greta () Family Medicine Physician [facility] LIS[place]TE [place] Extracted from:Title: [facility] Clinic Note - COPD exac Author: OSCAR OCHOA MD Date: 06/22/24 1.?COPD - Chronic obstructive pulmonary disease Acute exacerbation on chronic. No home O2. Incr in?sputum production, purulent over past wk and dyspneic above baseline. Responsive to albuterol and nebs at home. Irritable w/ steroids in the past but interested in lower dose. Likely triggered by sinusitis in s/o sick contacts from the holidays. Satting?well enough for COPD w/o severity warranting hospital tx at?this time. - Augmentin 875 bid x7 days for sinusitis and exac - Pred 20 qd x5 days (lower dose since irritable last time she tood steroids) - Cont home inhalers/nebs - Counseled on?ER precautions - Expect improvement in comping days w/ above tx - F/u if no improvement or worsening of sxs in?next 5-7 days, otherwise?prn ? Ordered: amoxicillin-clavulanate(amoxicilli n-clavulanate 875 mg-125 mg oral tablet), amoxicillin 1 tab(s), Oral, every 12 hr, X 7 days, # 14 tab(s), 0 total refill(s), Acute, 06/29/2024, 1 tab(s) Oral every 12 hr,x7 days, Pharmacy: [facility] #[id number], Respiratory, COPD exacerbation [External Rx] predniSONE(predniSONE 20 mg oral tablet), 1 tab(s), Oral, Daily, X 5 days, # 5 tab(s), 0 total refill(s), Acute, 1 tab(s) Oral Daily,x5 days, Pharmacy: [facility] #[id number] [External Rx] ? 2.?Tachycardia HR 106, likely in s/o acute illness and home meds. No arrhythmias. If continued beyond current illness, can assess further. ? Oscar Ochoa MD, NASH, MPH PGY-3, Family Medicine CHUY Bey, [facility] [place] ? ? Addendum by CHELLY MCMAHAN DO on June 22, 2024 17:55:53 ICE CREAM VENDOR I certify that I was present for case discussion in the Family Medicine preceptor room at the time of this encounter. I have reviewed the note and agree with the findings, assessment, and plan except as I have documented below. Follow up as listed. All labs/imaging/consults to be followed by the ordering provider. Chelly Mcmahan DO, CHUY [place], Staff Physician Extracted from:Title: [facility] - Mammogram Results Author: KRUNAL TAVAREZ DO Date: 02/20/24 1.?Breast mass Discussed?mammogram findings the patient, including?chronic circumscribed breast mass?and diffuse breast calcifications.? Patient understands and agrees with plan to follow-up in 1 year for repeat mammogram. -Discussed results as above -Return precautions discussed -RTC for annual well or sooner as needed ? ? Krunal Tavarez DO Semaphore Operator, PGY-3 [employer] ? Addendum by CHELLY MCMAHAN DO on March 26, 2024 15:11:41 CDT I certify that I was present for case discussion in the Family Medicine preceptor room at the time of this encounter. I have reviewed the note and agree with the findings, assessment, and plan except as I have documented below. Follow up as listed. All labs/imaging/consults to be followed by the ordering provider. Chelly Mcmahan DO, , [facility], Staff Physician Extracted from:Title: [facility] - Annual Wellness Author: KRUNAL TAVAREZ DO Date: 02/10/24 1.?Well female adult Preventative Medicine / HCM visit with no emergent concerns. ----- VACCINES: - Advised annual flu vaccine - Advised COVID-19 vaccine ----- - Cervical Cancer Screening:?UTD? - Breast?Cancer Screening:? DUE? -?Lung Cancer Screening:? DUE? -?Colon Cancer Screening:? DUE? ? ----- METABOLIC: -?Lipid screening:? ?UTD? -?DM screening:? UTD? ----- DIET:? -Mediterranean: Discussed that the Mediterranean diet consists of a diet high in fruits, vegetables, whole grains, etc. Mediterranean diet has been associated with decreased incidence of stroke and CVD.?Online resources provided on the Mediterranean diet for patient to review at home.? ----- SUBSTANCE USE: -?Tobacco use:?Admits? - Alcohol use:? Denies? - Illicit drug use:? Denies? ----- OTHER: - Discussed wearing safety belts, helmets (if motorcycle rider), sunscreen, smoke detectors in home ----- FOLLOW UP: - Annually? Ordered: MG Mammo [place] Screening Bilateral ? 2.?COPD - Chronic obstructive pulmonary disease Chronic. ?Well-controlled. -Refills placed for albuterol and?Breztri?as requested -Smoking cessation encouraged -Return precautions discussed -RTC as needed ? ? ? Ordered: albuterol(albuterol 90 mcg/inh aerosol inhaler), 2 puff(s), Inhale, every 4 hr, PRN wheezing, # 8.5 g, 11 total refill(s), Maintenance, 8.5g = 1 inhaler, 2 puff(s) Inhale every 4 hr,PRN:wheezing, Pharmacy: [facility] [Federal Rx: #8.5 last filled 02/10/24] budesonide/glycopyrrolate/formoter ol(Breztri Aerosphere 160 mcg-9 mcg-4.8 mcg/inh inhalation aerosol), 2 puff(s), Inhale, BID, # 10.7 g, 11 total refill(s), Maintenance, 10.7g = 1 inhaler with 120 metered doses, 2 puff(s) Inhale BID, Pharmacy: [facility] [Federal Rx: #10.7 last filled 02/10/24] Referral Request 2.0 - DoD ? 3.?Tobacco use Chronic.? Uncontrolled. -Discuss smoking cessation as above -Annual low-dose CT?ordered per USPSTF recommendations -RTC as needed ? ? Ordered: CT Low Dose Lung Screening ? 4.?Encounter for screening for malignant neoplasm of colon Screening colonoscopy ordered, as patient is due per?USPSTF recommendations Ordered: Referral Request 2.0 - DoD ? 5.?Skin lesion Skin lesion?seen just lateral to the left lateral canthus.? Pearly lesion with telangiectasias is highly consistent with?basal cell carcinoma, however?actinic keratosis?and squamous cell carcinoma are still in the differential. -Referral placed to dermatology?for continued evaluation and treatment -Return precautions discussed -RTC as needed ? ? Ordered: Referral Request 2.0 - DoD ? 6.?Thyroid nodule Patient is due for?serial thyroid ultrasound to evaluate for multiple thyroid nodules that are currently being?imaged every 2 years. ?She denies any new or worsening symptoms. Ordered: US Thyroid ? Krunal Tavarez, DO Semaphore Operator, PGY-3 [employer] ? 08/10/2024 Ambulatory Pharmacy Functional Status Combined list of recent functional and cognitive assessments recorded at Department of Defense and Veterans Affairs (VA).VA Functional [place] Measurement (FIM) Scale: 1 = Total Assistance (Subject = 0% +), 2 = Maximal Assistance (Subject = 25% +), 3 = Moderate Assistance (Subject = 50% +), 4 = Minimal Assistance (Subject = 75% +), 5 = Supervision, 6 = Modified Panola (Device), 7 = Complete Pan[place] (Timely, Safely). Assessment Date/Time Source Assessment Type Assessment Skill Assessment Score Assessment Details No data available for this section
--- OUTSIDE RECORDS SUMMARY | 2024-08-10 00:18 | XMS_ITS | Clinical Summary ---
Author Organization [facility] Address [address] [place] [address]. [place] [address] [place] [address] Care Team Providers Care Sample Stitcher Name Role Phone Unavailable Primary Care Provider Unavailabl e Encounters Date Type Department Care Team Description 08/10/2024 8:30 AM STONECUTTER ASSISTANT Hospital Encounter [facility] [address] Casey Whyte MD from Last 3 Months Social History Tobacco Use Types Packs/Day Years Used Date Smoking Tobacco: Never Assessed Comments Unknown Sex and Gender Information Value Date Recorded Sex Assigned at Not on file Legal Sex Female 8:35 PM CDT Gender Identity Not on file Sexual Orientation Not on file Plan of Treatment Upcoming Encounters Date Type Department Care Team (Late st Contact Info) Description 08/10/2024 8:30 AM STONECUTTER ASSISTANT Hospital Encounter [facility] [address] Casey Whyte MD [address] [facility] [address] [place] [address] 08/23/2024 12:05 PM STONECUTTER ASSISTANT Hospital Encounter [facility] [place] [address] Casey Whyte MD [address] [facility] [address] [place] [address] 08/23/2024 12:05 PM STONECUTTER ASSISTANT Anesthesia Event [facility] [place] [address] Alice Chester FNP [address] [place] [address] 08/23/2024 12:05 PM STONECUTTER ASSISTANT - 08/23/2024 4:24 PM STONECUTTER ASSISTANT Surgery [facility] [place] [address] Casey Whyte MD [address] [facility] [address] [place] [address] LEFT LAPAROSCOPIC NEPHRECTOMY Scheduled Procedures Name Priority Associated Diagnoses Date/Ti me LAPAROSCOPIC NEPHRECTOMY RENAL MASS, ADRENAL NODULE N28.89, E27.9 08/23/2024 12:05 PM STONECUTTER ASSISTANT Health Maintenance Due Date Last Done Comments Cervical Cancer Screening Pa p Smear (Age 30 to 64) Every 3 Years 1964 Colorectal Cancer Screening Colonoscopy (10 Years) 1964 Annual Physical 1967 Hepatitis C 1982 DTaP, Tdap and Td Vaccines ( 1 - Tdap) 1983 Cervical Cancer Screening Pa p with HPV Testing (Age 30 to 64) Every 5 Years 1994 Cervical Cancer Screening with HPV 1994 Mammogram Screening 2004 Zoster Vaccines (1 of 2) 2014 COVID-19 Vaccine (2023-2 5 season) 2024 Influenza Adult (#1) 2024 RSV Immunization or 60+ Years (1 - 1-dose 75+ series) 2039 Meningococcal B Vaccine Aged Out No l onger eligible based on patient's age to complete this topic Meningococcal Vaccine Aged Out No oneil moira eligible based on patient's age to complete this topic Pneumococcal Vaccine: Pediat rics (0 to 5 Years) and At-Risk Patients (6 to 64 Years) Aged Out No longer eligible b ased on patient's age to complete this topic RSV Immunizations Under 20 Months Aged Out No longer eligible based on patient's age to complete this topic Insurance
--- OUTSIDE RECORDS SUMMARY | 2024-08-10 00:18 | XMS_ITS | Data Portability ---
Author Organization [place] [facility] [employer], Main Office Address [address] [place] [address] Care Team Providers Care Family Educator Name Role Phone ALEE MORENO, [facility] Primary Care Provider [phone] Assessment No assessment recorded. Plan of Treatment Reminders Order Date Submit Date Provider Last Modified By Organization Details Last Modified Time Details Appointments None recorded. Lab None recorded. Referral None recorded. Procedures None recorded. Surgeries None recorded. Imaging LDCT, chest, for lung cancer screening 2022 023 [facility], [address] [place] [address], [address], 3 16:22:16 Medication Orders Breztri Aerosphere 160 mcg-9mcg-4. 8mcg/actuat ion HFA aerosol inhaler [address], [address] [place] [address], [address], 3 13:27:36 albuterol sulfate HFA 90 mcg/actuati on aerosol inhaler 2022 023 [facility], [address] [place] [address], [address], 3 13:33:07 albuterol sulfate 2.5 mg/3 mL (0.083 %) solution for nebulizatio n 2022 023 [facility], [address] [place] [address], [address], 3 13:33:07 Patient TargetsNo targets recorded. Patient InstructionsNo instructions recorded. Reason for Referral None Reported. Results Created Date Observation Date Name Description Value Unit Range Abnormal Flag Note LastModifiedBy Organization Detail LastModifiedTime 05/19/20 21 05/18/2021 compl ete PFT w/ post [facility] hodil ator valdemar metry * No observ ation record ed. [id number] [facility] [address] [facility] [address], [place], [address], 09/15/2022 03:14:00 10/23/19 22 10/08/2021 LDCT, chest , for lung cance r scree vanessa No observ ation record ed. [id number] Not Available 09/15/2022 03:14:00 11/10/19 23 11/05/2022 LDCT, chest , for lung cance r scree vanessa No observ ation record ed. [email or web address] [facility] [address] [place], [address], 11/15/2022 14:38:02 Result Notes None recorded. Problems Name Problem SNOMED Code Status Onset Date Resolution Date Notes Provider Name and Address Organization Details Recorded Time Chronic obstructiv e pulmonary disease 91367707 Active 2018 Not Available [employer] 3 03:03:32 Body mass index 30+ - obesity 680039411 Active 2018 Not Available [facility] 3 03:03:32 Anti-nucle ar factor detected 565387221 Active 2021 Not Available [facility] 3 03:03:32 Calcified granuloma of lung 1699631989832 9100 Active 2021 Not Available [facility] 3 03:03:32 Former heavy tobacco smoker 1463759672138 00 Active 2018 Not Available [facility] 3 03:03:32 Candidiasi s of mouth 57994390 Active 2021 Not Available [facility] 3 03:03:32 Ex-smoker 9289656 Active 2021 Not Available [facility] 3 03:03:33 Pulmonary emphysema 76882674 Active 2021 Not Available [facility] 3 03:03:33 Problem Notes None recorded. Procedures Surgical History None recorded. Imaging Results Imaging Date Name Status LastModified by Organization Details LastModified Time 10/08/2021 LDCT, chest, for lung cancer screening completed [id number] Information not available 09/15/2022 03:14:00 05/18/2021 complete PFT w/ post bronchodilator spirometry* completed [id number] [facility] [address] [facility] [address], [place], [address], 09/15/2022 03:14:00 11/05/2022 LDCT, chest, for lung cancer screening completed [email or web address] [facility] [address] [place], [address], 11/15/2022 14:38:02 Procedure Notes None recorded. Medical Equipment None Reported. Allergies Allergen ID Allergen Name Allergen Category Reaction Reaction Severity Criticality Documentation Date Start Date Code Code System Note Provider Name and Address Organization Details Recorded Time 5516 latex environme nt,medica tion Not available Not available Not available 09/15/2022 77803 91 RxNorm Not Available [facility] 3 03:13:32 5517 influenza virus vaccine, specific Not available itching rash swelling Not available Not available Not available Not available 09/15/2022 68304 UNK Not Available [facility] 3 03:13:32 Medications Name Sig Start Date Stop Date Status Note LastModified by Organization Details LastModified Time amoxicillin 500 mg capsule Take 1 capsule every 8 hours by oral route as directed for 7 days. active Not Available Not Available No t Available atorvastati n 40 mg tablet 1 PO QHS 04/17 completed Not Available Not Available Not Available nystatin 100,000 unit/mL oral suspension Take 5 mL 4 times a day by oral route as directed for 10 days. active Not Available Not Available No t Available atorvastati n 20 mg tablet active Not Available Not Available Not Available albuterol sulfate 2.5 mg/3 mL (0.083 %) solution for nebulizatio n Inhale 3 mL 3 times a day by nebulizat ion route as directed for 30 days. 2022 active Not Available Not Available Not Avai lable cetirizine 10 mg tablet 1 PO QD active Not Available Not Available Not Available lisinopril 20 mg tablet active Not Available Not Available Not Available Zithromax Z-Harish 250 mg tablet TAKE 2 TABLETS (500 MG) BY ORAL ROUTE ONCE DAILY FOR 1 DAY THEN 1 TABLET (250 MG) BY ORAL ROUTE ONCE DAILY FOR 4 DAYS 10/10 completed Not Available Not Available Not Available amoxicillin 875 mg tablet 03/29 completed Not Available Not Available Not Available Cheratussin AC 10 mg-100 mg/5 mL oral liquid 03/29 completed Not Available Not Available Not Available cefuroxime axetil 500 mg tablet 03/29 completed Not Available Not Available Not Available levofloxaci n 500 mg tablet 03/29 completed Not Available Not Available Not Available methylpredn isolone 4 mg tablets in a dose pack 03/29 completed Not Available Not Available Not Available albuterol sulfate HFA 90 mcg/actuati on aerosol inhaler 2 PUFF Q4-6H PRN SHORTNESS OF BREATH 2022 active Not Available Not Available Not Avai lable fluticasone propionate 50 mcg/actuati on nasal spray,suspe nsion [place] 1 spray every day by intranasa l route as directed for 30 days. active Not Available Not Available No t Available cholecalcif reyes (vitamin D3) 125 mcg (5,000 unit) capsule 1 PO QD active Not Available Not Available Not Available amoxicillin 875 mg-marinau m clavulanate 125 mg tablet TAKE 1 TABLET BY MOUTH TWICE DAILY FOR 7 DAYS 10/16 completed Not Available Not Available Not Available Flovent HFA 110 mcg/actuati on aerosol inhaler 2 PUFFS BID active Not Available Not Available No t Available Atrovent HFA 17 mcg/actuati on aerosol inhaler 03/29 completed Not Available Not Available Not Available [employer] active Not Available Not Available Not Available Cinnamon 2021 active Not Available Not Available Not Avai lable Mucus Relief ER 600 mg tablet, extended release 03/29 completed Not Available Not Available Not Available Combivent Respimat 20 mcg-100 mcg/actuati on solution for inhalation 1 PUFF 4 TIMES DAILY active Not Available Not Available No t Available Nena Aerosphere 160 mcg-9mcg-4. 8mcg/actuat ion HFA aerosol inhaler Inhale 2 puffs twice a day by inhalatio n route as directed for 30 days. active Not Available Not Available No t Available Vitals Date Recorded Body height Body mass index (BMI) Body weight Body temperature Heart rate Oxygen saturation Oxygen saturation in Arterial blood by Pulse oximetry Systolic blood pressure Diastolic blood pressure Provider Name and Address Organization Details Last Updated DateTime 3 156.21 cm 31.6 kg/m2 41283.7 g 98 [degF] 116 /min 97 % 97 % 136 mm[Hg] 70 mm[Hg] Leida Khan MA [employer] 3 10:30:16 Date Recorded Body height Body mass index (BMI) Body weight Body temperature Heart rate Oxygen saturation Oxygen saturation in Arterial blood by Pulse oximetry Systolic blood pressure Diastolic blood pressure Provider Name and Address Organization Details Last Updated DateTime 3 156.21 cm 30.7 kg/m2 36783.7 4 g 97.2 [degF] 104 /min 93 % 93 % 112 mm[Hg] 64 mm[Hg] Tameka Castillo [facility] 3 10:16:16 Date Recorded Body mass index (BMI) Body height Oxygen saturation Oxygen saturation in Arterial blood by Pulse oximetry Heart rate Body temperature Body weight Systolic blood pressure Diastolic blood pressure Provider Name and Address Organization Details Last Updated DateTime 1 32.7 kg/m2 156.21 cm 93 % 93 % 107 /min 98.8 [degF] 68647.2 6 g 106 mm[Hg] 78 mm[Hg] Not Available [facility] 03:02:22 Date Recorded Body mass index (BMI) Body height Oxygen saturation Oxygen saturation in Arterial blood by Pulse oximetry Heart rate Body temperature Body weight Systolic blood pressure Diastolic blood pressure Provider Name and Address Organization Details Last Updated DateTime 2 32 kg/m2 156.21 cm 94 % 94 % 86 /min 97.9 [degF] 78222.8 9 g 120 mm[Hg] 70 mm[Hg] Not Available [facility] 3 03:02:22 Date Recorded Body mass index (BMI) Body height Oxygen saturation Oxygen saturation in Arterial blood by Pulse oximetry Heart rate Body temperature Body weight Systolic blood pressure Diastolic blood pressure Provider Name and Address Organization Details Last Updated DateTime 2 31.6 kg/m2 156.21 cm 96 % 96 % 122 /min 96.3 [degF] 72344.7 g 124 mm[Hg] 80 mm[Hg] Not Available [facility] 3 03:02:23 Social History Question Answer Notes LastModified by Organizat ion Details LastModified Time Tobacco Smoking Status Former Smoker Not Available [facility] 09/15/2022 02:54:49 Do You Have An Advance Directive? No [id number] Information not available 09/15/2022 What Is Your Level Of Alcohol Consumption? Occasional [id number].[id number] 1026 Information not available 09/15/2022 What Is Your Level Of Caffeine Consumption? Heavy MIGRATION.758660 0015 Information not available 09/15/2022 How Much Tobacco Do You Chew? None MIGRATION.309376 [id number] Information not available 09/15/2022 In The 14 Days Before Symptom Onset, Have You Had Close Contact With A Laboratory-confir med COVID-19 While That Case Was Ill? No [id number].[id number] 6033 Information not available 09/15/2022 In The 14 Days Before Symptom Onset, Have You Had Close Contact With A Person Who Is Under Investigation For COVID-19 While That Person Was Ill? No MIGRATION.[id number] 6429 Information not available 09/15/2022 What Type Of Diet Are You Following? REGULAR MIGRATION.832816 6434 Information not available 09/15/2022 Which Illicit Or Recreational Drugs Have You Used? None MIGRATION.[id number] 1587 Information not available 09/15/2022 Do You Or Have You Ever Used E-cigarettes Or Vape? Current User Of Electronic Cigarettes MIGRATION.994307 8395 Information not available 09/15/2022 Do You Have An Electrostatic Air Filter? 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 6-10yearssince lastcigarette MIGRATION.368096 5558 Information not available 09/15/2022 Are There Any Guns Present In Your Home? Yes MIGRATION.806513 7204 Information not available 09/15/2022 Do You Have A Humidifier? Yes MIGRATION.161060 0859 Information not available 09/15/2022 Do You Have Moisture Problems In Your Home? No MIGRATION.808190 8219 Information not available 09/15/2022 What Was The Date Of Your Most Recent Tobacco Screening? 05/27/2021 MIGRATION.262314 6282 Information not available 09/15/2022 How Many Children Do You Have? 2 MIGRATION.593654 6736 Information not available 09/15/2022 Do You Have Any Pets? Yes MIGRATION.396136 6219 Information not available 09/15/2022 At What Age Did You Start Smoking Tobacco? 12 MIGRATION.281074 5875 Information not available 09/15/2022 Are You Passively Exposed To Smoke? Yes MIGRATION.179581 7843 Information not available 09/15/2022 Do You Or Have You Ever Used Smokeless Tobacco? Never Used Smokeless Tobacco MIGRATION.789157 5351 Information not available 09/15/2022 How Much Tobacco Do You Smoke? 1 PPD MIGRATION.819366 2643 Information not available 09/15/2022 How Many Years Have You Smoked Tobacco? 35 MIGRATION.424955 6195 Information not available 09/15/2022 Have You Recently Traveled Abroad? No MIGRATION.320179 7446 Information not available 09/15/2022 Sex: Unknown Functional Status Question Answer Note LastModified by Organizat ion Details LastModified Time What is your exercise level? None [id number] Information not available 09/15/2022 Mental Status None recorded. Family History Nothing Reported. Medical History No medical history recorded. Gynecological HistoryNo gynecological history recorded. Obstetrics History GPAL:G 0 P 0 0 0 0 Immunizations Vaccine Type Date Status Note Provider Nam e and Address Organization Details Recorded Time influenza, unspecified formulation 1 completed Not Available [facility] 09/15/2022 03:13:24 COVID-19, mRNA, LNP-S, PF, 100 mcg/0.5mL dose or 50 mcg/0.25mL dose 1 completed Not Available [facility] 09/15/2022 03:13:24 Influenza, split virus, quadrivalent, PF 2 completed Not Available [facility] 09/15/2022 03:13:24 Influenza, split virus, quadrivalent, preservative 7 completed Not Available [facility] 09/15/2022 03:13:24 Past Encounters Encounter ID Performer Location Encounter Start Date Encounter Closed Date Diagnosis/Indication Diagnosis SNOMED-CT Code Diagnosis ICD10 Code Diagnosis Note [id number] [facility] [place] [address] [place] [address] 10/16/2020 00:00:00 10/16/2020 11:36:16 [id number] [facility] [place] [address] [place] [address] 04/22/2021 00:00:00 04/22/2021 11:08:07 [id number] [facility] [place] [address] [place] [address] 05/27/2021 00:00:00 05/27/2021 13:54:34 [id number] [facility] [place] [address] [place] [address] 09/23/2021 00:00:00 09/23/2021 11:08:50 [id number] [facility] [place] [address] [place] [address] 05/04/2022 00:00:00 05/04/2022 11:22:56 [id number] Jolie Villarreal, [facility] [place] [address] [place] [address] 11/02/2022 10:16:19 11/02/2022 10:50:31 Chronic obstructive pulmonary disease 78107917 J44.9 SevereCAT 16PFT completed 05/18/21 with severe obstructio n: Ratio 41, FEV1 42%.37% increase in KHI71-34 PBD, overlap syndrome.T LC 219%, RV 405%.DLCO 86 correctedP sofía to repeat this fallContin ue flovent and combivent, these are covered by her insurance. Instructed on techniqueC onsider change to triple therapy if not at baseline this fall (COVID 06/2022)Al buterol PRNNebuliz er PRNDiscuss ed reportable signs and symptoms.D iscussed pulmonary rehab, she declines at this timeRTC in 6 months, PRN for concerns Pulmonary emphysema 8743 3001 J43.9 Severe air trapping and hyperinfla tionNo bullae notedDiscu ssed activity, inhaler maintenanc e. Anti-nucle ar factor detected 569633361 R76.8 MARV positive 1:320Previ ous rhenuatolo gy referral Calcified granuloma of lung 0414855415 5701455 J98.[address] chest.Also in liver, calcified hilar lymph nodes.Kenroy tiferon GOLD negativeAC E normalPosi tive AI serologies as above. Ex-smoker 6930294 Z87.89 1 37 pack year history.CT chest completed 09/2020 with no suspicious lung nodule or massRepeat completed 09/2021 with no nodule, mass, or enlarged lymph nodesRepea t was due 09/2022 - order entered today History of SARS-CoV-2 29 47241618 14142664 Z86.16 + June 2022 [id number] Jolie Villarreal, [facility] [place] [address] [place] [address] 05/06/2023 09:32:09 05/06/2023 10:51:00 Chronic obstructive pulmonary disease 79095331 J44.9 SevereCAT 24PFT completed 05/18/21 with severe obstructio n: Ratio 41, FEV1 42%.37% increase in OMB57-59 PBD, overlap syndrome.T LC 219%, RV 405%.DLCO 86 correctedN eeds repeat, she would like to wait until she is re-establi shed with pulmonolog yStart triple therapy - Breztri 2 puffs BID with aerochambe rInstructe d on techniqueA lbuterol PRNNebuliz er PRNDiscuss ed reportable signs and symptoms.D iscussed pulmonary rehab, she declines at this timeAdvise d vaccines this fall Pulmonary emphysema 8743 3001 J43.9 Severe air trapping and hyperinfla tionNo bullae notedDiscu ssed activity, inhaler maintenanc e.CT completed 10/2022 Anti-nucle ar factor detected 567582621 R76.8 MARV positive 1:320Previ ous rhemuatolo gy referral Calcified granuloma of lung 0970198160 2736062 J98.[address] chest.Also in liver, calcified hilar lymph nodes.Kenroy tiferon GOLD negativeAC E normalPosi tive AI serologies as above. History of SARS-CoV-2 29 79156893 41922528 Z86.16 + June 2022 Ex-smoker 1120785 Z87.89 1 [address] 10/2022 with micronodul es - unchangedN o suspicious nodule, mass or enlarged lymph nodeRepeat due 10/2023 Health Concerns Section Related Observation LastModified by Organization Detai ls LastModified Time None Recorded Concern Status LastModified by Organization Details LastModified Time None Recorded Advance Directives Directive N: Payers Encounter Date Sequence Insurance Name Policy Number Policy Peters Covered Member ID Peters Member ID Guarantor Name 11/02/2022 1 [facility] - [employer]IME () Eamon Villafuerte [id number] Terri Villafuerte 05/06/2023 1 [facility] [employer] - PRIME () Eamon Villafuerte [id number] Terri Villafuerte Notes Date Note Type Note Provider Name and Address Organization Details Recorded Time 11/02/2022 text/html Terri presents to day to follow up on COPD, dyspnea, cough, testing.Has not had respiratory illness this year requiring steroids or antibiotics.She was positive for COVID 06/22/23Recovered at homeNo ER or UC visits for respiratory concernsMild increase in dyspnea since COVID infection, although she is improvingNot back to baseline yetSlight increase in rescue MDI with good clinical benefitDenies hemoptysis and weight loss.Does not wake at night R/T respiratory issues.No unintentional weight loss.No wheezing or chest tightness.Compliant with Flovent and Combivent, good clinical benefit and this is covered by her insuranceContinues to endorse joint pains and unexplained rashesNo sinus congestion, change in vision, swollen lymph nodesHas not had recent chest imaging Jolie Villarreal, [facility] [address] [facility] [facility] [address], [place], [address], [facility] 11/02/2022 10:58:53 05/06/2023 text/html Terri presents to day to follow up on COPD, dyspnea, coughShe remains on Flovent and combivent - these were previously the only inhaled therapies covered well by her insurance.Admits to increased shortness of breath, feels like her tolerance is not as good as 6 months ago.Respiratory cold in December 2022 - did not require steroids or antibiotics but tells me this lasted several weeks.She was positive for COVID 06/22/22Recovered at homeNo ER or UC visits for respiratory concernsIncrease in rescue MDI with good clinical benefit about half of the time. Does not always use aerochamberDenies hemoptysis and weight loss.Does not wake at night R/T respiratory issues.No unintentional weight loss.No wheezing or chest tightness.No sinus congestion, change in vision, swollen lymph nodes Jolie Villarreal, [facility] [address] [facility] [facility] [address], [place], [address], [place] 05/06/2023 13:37:04 OBGyn Episode No OBEpisode recorded.
== END 2024-08-08 12:21 | disposition home or self-care (01) ==
LOC: ANHPFT 12:22
PROVIDERS: Visit Provider Internal Medicine Pulmonary Disease
DX: J44.9 Chronic obstructive pulmonary disease, unspecified (principal)
CPT/HCPCS: 94060; 94726; 94729